=== PATIENT | male | born 1960 | race American Indian/Alaskan Native ===

== ENCOUNTER 2017-04-11 07:28 | Emergency (ER) | payer MEDICAID ==
[2017-04-11 07:44] VITALS: BP 143/85
[2017-04-11] MEDS ORDERED: LORazepam 1 MG Tab PO ONE ×2 (07:59→08:56)
[2017-04-11] MEDS ORDERED: Aluminum Hydroxide/Magnesium Hydroxide/Simethicone Susp 30 ML Cup PO ONE ×2 (07:59→11:12)
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
[2017-04-11] MEDS ORDERED: Midazolam 1 MG/ML 2 ML SDV NAS ONE (08:15)
[2017-04-11] MEDS ORDERED: Ondansetron 4 MG Tab.DIS PO ONE (11:14)
== END 2017-04-11 12:18 ==
LOC: JP.ED 07:28
DX: F10.230 Alcohol dependence with withdrawal, uncomplicated (principal); F10.220 Alcohol dependence with intoxication, uncomplicated; Y90.6 Blood alcohol level of 120-199 mg/100 ml; I10 Essential (primary) hypertension; E78.00 Pure hypercholesterolemia, unspecified; J45.909 Unspecified asthma, uncomplicated; E11.42 Type 2 diabetes mellitus with diabetic polyneuropathy; Z87.891 Personal history of nicotine dependence; Z79.4 Long term (current) use of insulin; Z79.899 Other long term (current) drug therapy; Z88.6 Allergy status to analgesic agent; Z88.8 Allergy status to other drugs, medicaments and biological substances; Z91.048 Other nonmedicinal substance allergy status
CPT/HCPCS: 36415; 80053; 80305; 81001; 84443; 85027; 99285; A9270; G0480

== ENCOUNTER 2017-04-16 12:59 | Emergency (ER) | payer MEDICAID ==
[2017-04-16] MEDS ORDERED: LORazepam 1 MG Tab PO ONE (13:39)
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
[2017-04-16] MEDS ORDERED: Ondansetron 4 MG Tab.DIS PO ONE (13:49)
[2017-04-16 14:49] VITALS: BP 138/95
== END 2017-04-16 16:05 ==
LOC: JP.ED 12:59
DX: F10.20 Alcohol dependence, uncomplicated (principal); Y90.1 Blood alcohol level of 20-39 mg/100 ml; E11.40 Type 2 diabetes mellitus with diabetic neuropathy, unspecified; J44.9 Chronic obstructive pulmonary disease, unspecified; I10 Essential (primary) hypertension; E78.00 Pure hypercholesterolemia, unspecified; Z79.84 Long term (current) use of oral hypoglycemic drugs; Z79.01 Long term (current) use of anticoagulants; Z79.4 Long term (current) use of insulin; Z79.899 Other long term (current) drug therapy; Z88.8 Allergy status to other drugs, medicaments and biological substances; Z91.09 Other allergy status, other than to drugs and biological substances; Z88.6 Allergy status to analgesic agent
CPT/HCPCS: 36415; 80053; 80305; 81001; 85025; 85610; 99285; A9270; G0480

== ENCOUNTER 2017-04-23 00:03 | Emergency (ER) | payer MEDICAID ==
[2017-04-23 01:09] VITALS: BP 135/94
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
[2017-04-23] MEDS ORDERED: Enoxaparin 40 MG/0.4 ML Syringe SUBCUT ONE (02:31)
--- NOTE | 2017-04-23 08:18 | US ---
Ultrasound right lower extremity Findings: No DVT within the right lower extremity. Lymph node within the right groin.
== END 2017-04-23 02:44 | disposition home or self-care (01) ==
LOC: JP.ED 00:03
DX: L03.115 Cellulitis of right lower limb (principal); L02.415 Cutaneous abscess of right lower limb; Z88.8 Allergy status to other drugs, medicaments and biological substances; Z88.6 Allergy status to analgesic agent; Z79.899 Other long term (current) drug therapy
CPT/HCPCS: 36415; 80048; 85025; 85610; 93971; 96372; 99284; J1650

== ENCOUNTER 2017-05-01 08:11 | Emergency (ER) | payer MEDICAID ==
[2017-05-01 08:22] VITALS: BP 136/99
[2017-05-01] MEDS ORDERED: Ondansetron 4 MG Tab.DIS PO ONE (08:32)
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
== END 2017-05-01 09:22 | disposition other institution (70) ==
LOC: JP.ED 08:11
DX: F10.220 Alcohol dependence with intoxication, uncomplicated (principal); Y90.5 Blood alcohol level of 100-119 mg/100 ml; I11.0 Hypertensive heart disease with heart failure; I50.9 Heart failure, unspecified; E11.9 Type 2 diabetes mellitus without complications; F17.210 Nicotine dependence, cigarettes, uncomplicated; Z79.4 Long term (current) use of insulin; Z88.8 Allergy status to other drugs, medicaments and biological substances; Z88.6 Allergy status to analgesic agent; Z79.01 Long term (current) use of anticoagulants
CPT/HCPCS: 36415; 80048; 85025; 85610; 99285; A9270; G0480

== ENCOUNTER 2017-05-28 09:21 | Inpatient (IN) | payer MEDICAID ==
[2017-05-28] MEDS ORDERED: Sodium Chloride 0.9% 10 ML Syringe FLUSH PRN (09:37)
[2017-05-28] MEDS ORDERED: Sodium Chloride 0.9% 1,000 ML IV SCH (09:45)
[2017-05-28] MEDS ORDERED: Ondansetron 4 MG/2 ML SDV IVPUSH ONE (09:49)
[2017-05-28] MEDS ORDERED: LORazepam 2 MG/ML MDV IVPUSH ONE ×2 (10:17→13:40)
[2017-05-28] MEDS ORDERED: Adenosine 6 MG/2 ML SDV IVPUSH ONE ×2 (10:58→11:25)
[2017-05-28] MEDS ORDERED: Diltiazem 25 MG/5 ML SDV IVPUSH ONE (11:21)
[2017-05-28] MEDS ORDERED: Diltiazem 100 MG in Sodium Chloride 0.9% 100 ML IV SCH ×2 (11:30→11:45)
[2017-05-28] MEDS ORDERED: MVI, Adult with Vitamin K 10 ML, Thiamine 100 MG, Folic Acid 1 MG, Magnesium Sulfate 3 ... IV SCH ×5 (11:30)
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
[2017-05-28] MEDS ORDERED: Metoprolol Tartrate 50 MG Tab PO ONE (11:48)
[2017-05-28] MEDS ORDERED: MVI, Adult with Vitamin K 10 ML, Thiamine 100 MG, Folic Acid 1 MG, Magnesium Sulfate 3 ... IV ONE ×5 (12:00)
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
[2017-05-28] MEDS ORDERED: Ondansetron 4 MG Tab.DIS PO PRN (14:59)
[2017-05-28] MEDS ORDERED: Ibuprofen 600 MG Tab PO PRN (14:59)
[2017-05-28] MEDS: metFORMIN 500 MG Tab PO SCH (16:42)
[2017-05-28] MEDS: Insulin Aspart 100 Units/ML 3 ML Pen SUBCUT SCH ×3 (16:47→19:56)
[2017-05-28] MEDS: Sodium Chloride 0.9% 1,000 ML IV SCH (16:55)
[2017-05-28] MEDS: LORazepam 2 MG/ML MDV IV SCH (18:16)
[2017-05-28] MEDS: Ondansetron 4 MG/2 ML SDV IV PRN (18:55)
[2017-05-28] MEDS: atorvaSTATin 20 MG Tab PO SCH (20:00)
[2017-05-28] MEDS: Melatonin 3 MG Tab PO SCH (20:00)
[2017-05-28] MEDS: Montelukast 10 MG Tab PO SCH (20:00)
[2017-05-28] MEDS: Gabapentin 400 MG Cap PO SCH (20:01)
[2017-05-28] MEDS: Metoprolol Tartrate 50 MG Tab PO SCH (20:01)
[2017-05-28] MEDS: Insulin Detemir 100 Units/ML 3 ML Pen SUBCUT SCH (20:08)
[2017-05-28] MEDS: oxyCODONE 5 MG Tab PO PRN (20:16)
[2017-05-28] MEDS: LORazepam 1 MG Tab PO SCH (20:19)
[2017-05-28] MEDS ORDERED: Non-Formulary Medication 1 Each (Metformin Hcl [Fortamet] 1,000 MG) PO SCH (21:00)
[2017-05-29] MEDS: Sodium Chloride 0.9% 1,000 ML IV SCH ×2 (00:44→07:49)
[2017-05-29] MEDS: Pantoprazole 40 MG Tab.CR PO SCH (07:51)
[2017-05-29] MEDS: metFORMIN 500 MG Tab PO SCH ×2 (08:55→18:09)
[2017-05-29] MEDS ORDERED: ATORVASTATIN PO SCH (09:00)
[2017-05-29] MEDS: oxyCODONE 5 MG Tab PO PRN ×3 (09:14→21:07)
[2017-05-29] MEDS: Acetaminophen 325 MG Tab PO PRN ×2 (09:15→20:13)
[2017-05-29] MEDS: Insulin Aspart 100 Units/ML 3 ML Pen SUBCUT SCH ×7 (09:17→21:03)
[2017-05-29] MEDS: Folic Acid 1 MG Tab PO SCH (09:21)
[2017-05-29] MEDS: Metoprolol Tartrate 50 MG Tab PO SCH ×2 (09:21→20:13)
[2017-05-29] MEDS: Lisinopril 20 MG Tab PO SCH (09:22)
[2017-05-29] MEDS: Gabapentin 400 MG Cap PO SCH ×3 (09:22→20:12)
[2017-05-29] MEDS: Thiamine 100 MG Tab PO SCH (09:23)
[2017-05-29] MEDS: Ondansetron 4 MG/2 ML SDV IV PRN (09:45)
--- NOTE | 2017-05-29 09:47 | PCM.PN ---
- General Info Date of Service: 05/29/17 Functional Status: Reports: Pain Controlled, Tolerating Diet - Review of Systems General: Reports: Weakness Musculoskeletal: Reports: Shoulder Pain Neurological: Reports: Tremors Systems Review Comment:: No acute events overnight. Heart rate has come down below 100 with beta thaddeus use. Intermittently using lorazepam for his alcohol withdrawal and still feels shaky and weak today. Has some nausea but was able to eat some supper and a little breakfast. Mild knee pain and swelling are stable from yesterday. Patient reports left shoulder pain in the area of his AC joint today. No fevers. INR is down to 6.6. No evidence for bleeding. - Patient Data Vitals - Most Recent: Last Vital Signs Temp 36.6 C 05/29/17 07:52 Pulse 101 H 05/29/17 09:21 Resp 16 05/29/17 07:52 BP 142/93 H 05/29/17 09:22 Pulse Ox 96 05/29/17 07:52 Weight - Most Recent: 113.398 kg I&O - Last 24 Hours: Intake & Output 05/28/17 05/29/17 05/29/17 22:59 06:59 14:59 Intake Total 2080 Output Total 300 Balance 1780 Lab Results Last 24 Hours: Laboratory Results - last 24 hr 05/29/17 05/29/17 05/29/17 Range/Units 05:18 05:18 05:18 WBC 5.8 (4.5-11.0) K/uL RBC 3.75 L (4.30-5.90) M/uL Hgb 10.5 L D (12.0-15.0) g/dL Hct 31.7 L (40.0-54.0) % MCV 85 (80-98) fL MCH 28 (27-31) pg MCHC 33 (32-36) % Plt Count 171 (150-400) K/uL PT 76.9 H (9.5-12.0) sec INR 6.64 H* (0.80-1.20) Sodium 136 L (140-148) mmol/L Potassium 3.7 (3.6-5.2) mmol/L Chloride 104 (100-108) mmol/L Carbon Dioxide 24 (21-32) mmol/L Anion Gap 11.7 (5.0-14.0) mmol/L BUN 9 (7-18) mg/dL Creatinine 0.9 (0.8-1.3) mg/dL Est Cr Clr Drug Dosing 95.29 mL/min Estimated GFR (MDRD) > 60 (>60) Glucose 101 (74-106) mg/dL Calcium 7.0 L (8.5-10.1) mg/dL Med Orders - Current: Current Medications Acetaminophen (Tylenol) 650 mg PO Q4H PRN PRN Reason: Pain (Mild 1-3)/fever Last Admin: 05/29/17 09:15 Dose: 650 mg Atorvastatin Calcium (Lipitor) 80 mg PO BEDTIME [facility] Last Admin: 05/28/17 20:00 Dose: 80 mg Folic Acid (Folic Acid) 1 mg PO DAILY [facility] Last Admin: 05/29/17 09:21 Dose: 1 mg Gabapentin (Neurontin) 400 mg PO TID [facility] Last Admin: 05/29/17 09:22 Dose: 400 mg Insulin Aspart (Novolog) 10 unit SUBCUT TIDMEALS [facility] Last Admin: 05/29/17 09:18 Dose: 10 units Insulin Aspart (Novolog) 0 unit SUBCUT QIDACANDBED [facility] PRN Reason: Protocol Last Admin: 05/29/17 09:17 Dose: Not Given Insulin Detemir (Levemir) 60 unit SUBCUT BEDTIME [facility] Last Admin: 05/28/17 20:08 Dose: 60 unit Lisinopril (Prinivil) 20 mg PO DAILY [facility] Last Admin: 05/29/17 09:22 Dose: 20 mg Lorazepam (Ativan) 0 mg IV ASDIRECTED [facility] PRN Reason: Protocol Last Admin: 05/28/17 18:16 Dose: 2 mg Lorazepam (Ativan) 0 mg PO ASDIRECTED [facility] PRN Reason: Protocol Last Admin: 05/28/17 20:19 Dose: 1 mg Melatonin (Melatonin) 9 mg PO BEDTIME [facility] Last Admin: 05/28/17 20:00 Dose: 9 mg Metformin HCl (Glucophage) 1,000 mg PO BIDMEALS [facility] Last Admin: 05/29/17 08:55 Dose: 1,000 mg Metoprolol Tartrate (Lopressor) 50 mg PO BID [facility] Last Admin: 05/29/17 09:21 Dose: 50 mg Montelukast Sodium (Singulair) 10 mg PO BEDTIME [facility] Last Admin: 05/28/17 20:00 Dose: 10 mg Ondansetron HCl (Zofran Odt) 4 mg PO Q6H PRN PRN Reason: Nausea able to take PO Ondansetron HCl (Zofran) 4 mg IV Q6H PRN PRN Reason: Nausea/Vomiting Last Admin: 05/29/17 09:45 Dose: 4 mg Oxycodone HCl (Oxycodone) 5 mg PO Q4H PRN PRN Reason: Pain Last Admin: 05/29/17 09:14 Dose: 5 mg Pantoprazole Sodium (Protonix) 40 mg PO ACBREAKFAST [facility] Last Admin: 05/29/17 07:51 Dose: 40 mg Sodium Chloride (Saline Flush) 10 ml FLUSH ASDIRECTED PRN PRN Reason: Keep Vein Open Last Admin: 05/28/17 10:43 Dose: 10 ml Thiamine HCl (Vitamin B-1) 100 mg PO DAILY [facility] Last Admin: 05/29/17 09:23 Dose: 100 mg Discontinued Medications Adenosine (Adenocard) 6 mg IVPUSH NOW ONE Stop: 05/28/17 10:59 Last Admin: 05/28/17 11:06 Dose: 6 mg Adenosine (Adenocard) 12 mg IVPUSH NOW ONE Stop: 05/28/17 11:26 Last Admin: 05/28/17 11:08 Dose: 12 mg Diltiazem HCl (Diltiazem) 10 mg IVPUSH ONETIME ONE Stop: 05/28/17 11:22 Last Admin: 05/28/17 11:38 Dose: 10 mg Sodium Chloride (Normal Saline) 1,000 mls @ 999 mls/hr IV ASDIRECTED [facility] Last Admin: 05/28/17 10:42 Dose: 999 mls/hr Multivitamins/Minerals 10 ml/Thiamine HCl 100 mg/ Folic Acid 1 mg/ Magnesium Sulfate 3 gm/ Sodium Chloride 1,017.2 mls @ 250 mls/hr IV ASDIRECTED [facility] Diltiazem HCl 100 mg/ Sodium (Chloride) 100 mls @ 5 mls/hr IV TITRATE [facility]; 5 MG /HR PRN Reason: Protocol Last Titration: 05/28/17 13:21 Dose: 15 mg/hr, 15 mls/hr Multivitamins/Minerals 10 ml/Thiamine HCl 100 mg/ Folic Acid 1 mg/ Magnesium Sulfate 3 gm/ Sodium Chloride 1,017.2 mls @ 250 mls/hr IV ASDIRECTED ONE Stop: 05/28/17 16:04 Last Admin: 05/28/17 12:32 Dose: 250 mls/hr Sodium Chloride (Normal Saline) 1,000 mls @ 125 mls/hr IV ASDIRECTED [facility] Last Admin: 05/29/17 07:49 Dose: 125 mls/hr Lorazepam (Ativan) 1 mg IVPUSH ONETIME ONE Stop: 05/28/17 10:18 Last Admin: 05/28/17 10:50 Dose: 1 mg Lorazepam (Ativan) 1 mg IVPUSH ONETIME ONE Stop: 05/28/17 13:41 Last Admin: 05/28/17 13:57 Dose: 1 mg Metoprolol Tartrate (Lopressor) 50 mg PO ONETIME ONE Stop: 05/28/17 11:49 Last Admin: 05/28/17 12:34 Dose: 50 mg Ondansetron HCl (Zofran) 4 mg IVPUSH ONETIME ONE Stop: 05/28/17 09:50 Last Admin: 05/28/17 10:44 Dose: 4 mg Phytonadione (Aquamephyton) 5 mg IM ONETIME ONE Stop: 05/28/17 10:31 Last Admin: 05/28/17 10:34 Dose: 5 mg - Exam Quality Assessment: No: Supplemental Oxygen General: Alert, Oriented, Cooperative, Mild Distress Neck: Supple Lungs: Normal Respiratory Effort Cardiovascular: Regular Rate, Regular Rhythm GI/Abdominal Exam: Soft, No Distention Extremities: Other (TTP over left AC joint. Mild swelling right knee superior and medial to patella. No warmth of knee) Skin: Warm, Dry Psy/Mental Status: Alert, Anxious - Problem List & Annotations (1) Alcohol withdrawal syndrome SNOMED Code(s): 372157972 Code(s): F10.239 - ALCOHOL DEPENDENCE WITH WITHDRAWAL, UNSPECIFIED Status: Acute Current Visit: Yes Qualifiers: Complication of substance-induced condition: uncomplicated Qualified Code(s ): F10.230 - Alcohol dependence with withdrawal, uncomplicated (2) Supraventricular tachycardia SNOMED Code(s): 8109559 Code(s): I47.1 - SUPRAVENTRICULAR TACHYCARDIA Status: Acute Current Visit : Yes (3) Elevated INR SNOMED Code(s): 372049924 Code(s): R79.1 - ABNORMAL COAGULATION PROFILE Status: Acute Current Visit : Yes (4) Diabetes mellitus type 2 SNOMED Code(s): 92880642 Code(s): E11.9 - TYPE 2 DIABETES MELLITUS WITHOUT COMPLICATIONS Status: Chronic Priority: Medium Current Visit: No - Problem List Review Problem List Initiated/Reviewed/Updated: Yes - My Orders Last 24 Hours: My Active Orders 05/28/17 13:45 Resuscitation Status Routine 05/28/17 14:59 Patient Status [ADT] Routine Bedrest Bathroom Privileges [RC] ASDIRECTED Blood Glucose Check, Bedside [RC] QIDACANDBED CIWAA Assessment [RC] Q1H Cardiac Monitoring [RC] Q6H Communication Order [RC] PRN Communication Order [RC] PRN Diabetes Education [RC] Click to Edit Intake and Output [RC] QSHIFT Notify Provider Vital Signs [RC] ASDIRECTED Notify Provider [RC] PRN Notify Provider [RC] PRN Oxygen Therapy [RC] PRN Pulse Oximetry [RC] CONTINUOUS Up With Assistance [RC] ASDIRECTED Vital Signs [RC] Q4H Acetaminophen [Tylenol] 650 mg PO Q4H PRN LORazepam [Ativan] See Protocol IV ASDIRECTED LORazepam [Ativan] See Protocol PO ASDIRECTED Ondansetron [Zofran ODT] 4 mg PO Q6H PRN Ondansetron [Zofran] 4 mg IV Q6H PRN oxyCODONE 5 mg PO Q4H PRN 05/28/17 17:00 Insulin Aspart [NovoLOG] 10 unit SUBCUT TIDMEALS Insulin Aspart [NovoLOG] See Protocol SUBCUT QIDACANDBED metFORMIN [Glucophage] 1,000 mg PO BIDMEALS 05/28/17 21:00 Gabapentin [Neurontin] 400 mg PO TID Melatonin 9 mg PO BEDTIME atorvaSTATin [Lipitor] 80 mg PO BEDTIME 05/28/17 Dinner Consistent Carbohydrate Diet [DIET] 05/29/17 07:30 Pantoprazole [ProTONIX] 40 mg PO ACBREAKFAST 05/29/17 09:00 Folic Acid 1 mg PO DAILY Thiamine [Vitamin B-1] 100 mg PO DAILY 05/29/17 09:45 Convert IV to Saline Lock [OM.PC] Routine 05/30/17 05:00 BASIC METABOLIC PANEL,BMP [CHEM] Timed HGB [HEMOGLOBIN] [HEME] Timed INR,PT,PROTHROMBIN TIME [COAG] Timed - Plan Plan:: ASSESSMENT AND PLAN - Alcohol dependence with withdrawal and delirium - hallucinations seem to have resolved. Current symptoms include nausea and tremulousness. Withdrawal seems to be relatively mild at this time. -CIWA with lorazepam -Gabapentin -Melatonin -Cardiac monitoring -Supplement thiamine and folate Supraventricular tachycardia - heart rate now down in the 90s. Tachycardia yesterday likely related to alcohol withdrawal and possibly beta thaddeus withdrawal. -Continue usual metoprolol dosing -Cardiac monitoring Supratherapeutic INR - INR down to 6.6 today. No evidence for bleeding. -Hold warfarin -INR in the morning Insulin-dependent diabetes mellitus - blood sugars have been well controlled so far. -Continue long-acting insulin -reduced dose of mealtime insulin -Sliding-scale insulin Maintenance issues - - DVT prophylaxis - mechanical - GI prophylaxis - PPI - Nutrition - diabetic diet Disposition - anticipate discharge home after the hospital stay Esvin Malone M.D.
[2017-05-29] MEDS: LORazepam 2 MG/ML MDV IV SCH (12:59)
[2017-05-29] MEDS: LORazepam 1 MG Tab PO SCH ×2 (16:32→20:14)
[2017-05-29] MEDS: Montelukast 10 MG Tab PO SCH (20:12)
[2017-05-29] MEDS: Melatonin 3 MG Tab PO SCH (20:13)
[2017-05-29] MEDS: atorvaSTATin 20 MG Tab PO SCH (20:14)
[2017-05-29] MEDS: Insulin Detemir 100 Units/ML 3 ML Pen SUBCUT SCH (21:07)
[2017-05-30] MEDS: metFORMIN 500 MG Tab PO SCH (08:09)
[2017-05-30] MEDS: Pantoprazole 40 MG Tab.CR PO SCH (08:09)
[2017-05-30] MEDS: Insulin Aspart 100 Units/ML 3 ML Pen SUBCUT SCH ×4 (08:28→13:15)
[2017-05-30] MEDS: Thiamine 100 MG Tab PO SCH (08:38)
[2017-05-30] MEDS: Gabapentin 400 MG Cap PO SCH ×2 (08:38→13:16)
[2017-05-30] MEDS: Lisinopril 20 MG Tab PO SCH (08:38)
[2017-05-30] MEDS: Metoprolol Tartrate 50 MG Tab PO SCH (08:39)
[2017-05-30] MEDS: Folic Acid 1 MG Tab PO SCH (08:39)
[2017-05-30] MEDS: Acetaminophen 325 MG Tab PO PRN (08:43)
[2017-05-30] MEDS: oxyCODONE 5 MG Tab PO PRN (08:44)
--- NOTE | 2017-05-30 13:13 | PCM.DCSUM1 ---
Discharge Summary - Hospital Course Brief History: 57-year-old male with history of alcohol dependence, insulin- dependent diabetes who presented with alcohol abuse and delirium and was also found to have an elevated INR and significant tachycardia. He was admitted to the intensive care unit for management of alcohol withdrawal and tachycardia. - Discharge Data Discharge Date: 05/30/17 Discharge Disposition: Home, Self-Care 01 Condition: Fair - Discharge Diagnosis/Problem(s) (1) Alcohol withdrawal syndrome SNOMED Code(s): 636551795 ICD Code: F10.239 - ALCOHOL DEPENDENCE WITH WITHDRAWAL, UNSPECIFIED Status : Acute Current Visit: Yes Qualifiers: Complication of substance-induced condition: with delirium Qualified Code(s ): F10.231 - Alcohol dependence with withdrawal delirium (2) Supraventricular tachycardia SNOMED Code(s): 5102471 ICD Code: I47.1 - SUPRAVENTRICULAR TACHYCARDIA Status: Acute Current Visit: Yes (3) Elevated INR SNOMED Code(s): 127445588 ICD Code: R79.1 - ABNORMAL COAGULATION PROFILE Status: Acute Current Visit: Yes (4) Diabetes mellitus type 2 SNOMED Code(s): 95480916 ICD Code: E11.9 - TYPE 2 DIABETES MELLITUS WITHOUT COMPLICATIONS Status: Chronic Priority: Medium Current Visit: No (5) Left shoulder pain SNOMED Code(s): 76559947 ICD Code: M25.512 - PAIN IN LEFT SHOULDER Status: Acute Current Visit: Yes Qualifiers: Chronicity: acute Qualified Code(s): M25.512 - Pain in left shoulder - Patient Summary/Data Hospital Course: Warren presented to the emergency room with visual and auditory hallucinations after recent heavy alcohol use. Workup in the emergency room revealed sinus tachycardia with heart rates in the 130s as well as a supratherapeutic INR and evidence for alcohol withdrawal. He was given 5 mg of vitamin K as well as a dose of metoprolol and admitted to the intensive care unit. Fortunately his heart rate did improve with the oral metoprolol and was likely a combination of alcohol withdrawal and lack of his home medications. His alcohol withdrawal fortunately was relatively mild. Over the next 48 hours his symptoms dissipated. His hallucinations resolved as did his tremulousness. He has been able to get out of bed on his own without much difficulty. He has been up and around his room with no significant issues. He has not had any lorazepam in nearly 20 hours by the time of discharge. His vital signs have all been stable. Blood sugars have been well controlled. From the alcohol withdrawal standpoint I believe he is safe for discharge to home at this time. He reports good resources to help avoid alcohol at home and has been through treatment many different times. We did not send him to [facility] because his detoxification is complete at the time of discharge. Also encountered during the hospital stay was some right knee pain and left shoulder pain. He reported a fall several days prior to hospital admission and had to use mailboxes outside to climb back up to his feet. He believes he injured his knee on the fall and his shoulder while trying to get back on his feet. Physical examination revealed significant point tenderness over the acromioclavicular joint and I suspect he may have a mild separation here. I did provide him with a limited number of pain pills to help with during the healing process. I did savings counselor him about the potentially severe and life-threatening dangers of using pain medications and alcohol at the same time. He voiced understanding that this combination could be dangerous. We did provide a sling to help support the shoulder while he is up and about and the healing process is underway. - Patient Instructions Diet: Diabetic Diet Activity: As Tolerated Driving: Do Not Drive (if taking pain pills) Showering/Bathing: May Shower Notify Provider of: Fever, Increased Pain Other/Special Instructions: 1. You were in the hospital for management of acute alcohol withdrawal with delirium. Your symptoms have resolved over time and were managed using lorazepam and gabapentin. At this time no further detoxification is needed. I would strongly encourage you to utilize your resources such as Alcoholics Anonymous, [facility] and whoever else can be useful to keep you away from the alcohol. Please do not mix alcohol and the pain pills prescribed for your shoulder pain. 2. The pain in your left shoulder is likely a result of the fall that you had a few days ago. I suspect that you have an AC joint separation. This will get better with time. You should use the sling while you are up and about but you may take it off while you are sleeping. This will help support the shoulder joint until things heal. 3. Do not take warfarin today or tomorrow before restart as usual on Wednesday. You should have your INR checked this week. 4. Please continue your other medications as previously prescribed. 5. Seek radical attention if you develop fever greater than 101, you have severe pain in your shoulder that limits your ability to perform your activities of daily living or you have persistent vomiting. - Discharge Plan Prescriptions/Med Rec: oxyCODONE 5 mg PO Q4H PRN #20 tablet PRN Reason: Pain Home Medications: Home Meds Insulin Aspart [NovoLOG] 30 units SQ TIDAC 02/22/13 [History] Insulin Detemir [Levemir] 60 units SQ BEDTIME 02/22/13 [History] Lisinopril 20 mg PO DAILY 02/22/13 [History] Metoprolol Tartrate 50 mg PO BID 02/22/13 [History] Montelukast [Singulair] 10 mg PO BEDTIME 02/22/13 [History] Multivitamin [Multiple Vitamins] 1 each PO DAILY 02/22/13 [History] Omeprazole 20 mg PO DAILY 02/22/13 [History] Warfarin [Coumadin] 2.5 mg PO ASDIRECTED 11/17/15 [History] Warfarin [Coumadin] 5 mg PO ASDIRECTED 11/17/15 [History] Folic Acid tab PO DAILY 05/28/17 [History] atorvaSTATin [Lipitor] 80 mg PO DAILY 05/28/17 [History] metFORMIN [Glucophage] 1,000 mg PO BIDMEALS 05/28/17 [History] oxyCODONE 5 mg PO Q4H PRN #20 tablet 05/30/17 [Rx] Patient Handouts: Alcohol Withdrawal Referrals: PCP,None [Primary Care Provider] - (follow-up with your primary care provider if your symptoms do not continue to get better or if they get worse) - Discharge Summary/Plan Comment DC Time >30 min.: No (25) - Patient Data Vitals - Most Recent: Last Vital Signs Temp 37.7 C 05/30/17 08:00 Pulse 90 05/30/17 10:00 Resp 14 05/30/17 10:00 BP 102/70 05/30/17 10:00 Pulse Ox 97 05/30/17 10:00 Weight - Most Recent: 113.398 kg I&O - Last 24 hours: Intake & Output 05/29/17 05/30/17 05/30/17 22:59 06:59 14:59 Intake Total 1240 Output Total 500 600 200 Balance 740 -600 -200 Lab Results - Last 24 hrs: Laboratory Results - last 24 hr 05/30/17 05/30/17 05/30/17 Range/Units 05:00 05:18 05:18 Hgb 9.9 L (12.0-15.0) g/dL PT 54.2 H (9.5-12.0) sec INR 4.75 H* (0.80-1.20) Sodium 136 L (140-148) mmol/L Potassium 3.6 (3.6-5.2) mmol/L Chloride 103 (100-108) mmol/L Carbon Dioxide 27 (21-32) mmol/L Anion Gap 9.6 (5.0-14.0) mmol/L BUN 5 L (7-18) mg/dL Creatinine 0.9 (0.8-1.3) mg/dL Est Cr Clr Drug Dosing 95.29 mL/min Estimated GFR (MDRD) > 60 (>60) Glucose 108 H (74-106) mg/dL Calcium 7.3 L (8.5-10.1) mg/dL Med Orders - Current: Current Medications Acetaminophen (Tylenol) 650 mg PO Q4H PRN PRN Reason: Pain (Mild 1-3)/fever Last Admin: 05/30/17 08:43 Dose: 650 mg Atorvastatin Calcium (Lipitor) 80 mg PO BEDTIME [facility] Last Admin: 05/29/17 20:14 Dose: 80 mg Folic Acid (Folic Acid) 1 mg PO DAILY [facility] Last Admin: 05/30/17 08:39 Dose: 1 mg Gabapentin (Neurontin) 400 mg PO TID [facility] Last Admin: 05/30/17 08:38 Dose: 400 mg Insulin Aspart (Novolog) 10 unit SUBCUT TIDMEALS [facility] Last Admin: 05/30/17 08:28 Dose: 10 units Insulin Aspart (Novolog) 0 unit SUBCUT QIDACANDBED [facility] PRN Reason: Protocol Last Admin: 05/30/17 08:31 Dose: Not Given Insulin Detemir (Levemir) 60 unit SUBCUT BEDTIME [facility] Last Admin: 05/29/17 21:07 Dose: 60 unit Lisinopril (Prinivil) 20 mg PO DAILY [facility] Last Admin: 05/30/17 08:38 Dose: 20 mg Lorazepam (Ativan) 0 mg IV ASDIRECTED [facility] PRN Reason: Protocol Last Admin: 05/29/17 12:59 Dose: 1 mg Lorazepam (Ativan) 0 mg PO ASDIRECTED [facility] PRN Reason: Protocol Last Admin: 05/29/17 20:14 Dose: 1 mg Melatonin (Melatonin) 9 mg PO BEDTIME [facility] Last Admin: 05/29/17 20:13 Dose: 9 mg Metformin HCl (Glucophage) 1,000 mg PO BIDMEALS [facility] Last Admin: 05/30/17 08:09 Dose: 1,000 mg Metoprolol Tartrate (Lopressor) 50 mg PO BID [facility] Last Admin: 05/30/17 08:39 Dose: 50 mg Montelukast Sodium (Singulair) 10 mg PO BEDTIME [facility] Last Admin: 05/29/17 20:12 Dose: 10 mg Ondansetron HCl (Zofran Odt) 4 mg PO Q6H PRN PRN Reason: Nausea able to take PO Last Admin: 05/29/17 20:14 Dose: 4 mg Ondansetron HCl (Zofran) 4 mg IV Q6H PRN PRN Reason: Nausea/Vomiting Last Admin: 05/29/17 09:45 Dose: 4 mg Oxycodone HCl (Oxycodone) 5 mg PO Q4H PRN PRN Reason: Pain Last Admin: 05/30/17 08:44 Dose: 5 mg Pantoprazole Sodium (Protonix) 40 mg PO ACBREAKFAST [facility] Last Admin: 05/30/17 08:09 Dose: 40 mg Sodium Chloride (Saline Flush) 10 ml FLUSH ASDIRECTED PRN PRN Reason: Keep Vein Open Last Admin: 05/28/17 10:43 Dose: 10 ml Thiamine HCl (Vitamin B-1) 100 mg PO DAILY [facility] Last Admin: 05/30/17 08:38 Dose: 100 mg Discontinued Medications Adenosine (Adenocard) 6 mg IVPUSH NOW ONE Stop: 05/28/17 10:59 Last Admin: 05/28/17 11:06 Dose: 6 mg Adenosine (Adenocard) 12 mg IVPUSH NOW ONE Stop: 05/28/17 11:26 Last Admin: 05/28/17 11:08 Dose: 12 mg Diltiazem HCl (Diltiazem) 10 mg IVPUSH ONETIME ONE Stop: 05/28/17 11:22 Last Admin: 05/28/17 11:38 Dose: 10 mg Sodium Chloride (Normal Saline) 1,000 mls @ 999 mls/hr IV ASDIRECTED [facility] Last Admin: 05/28/17 10:42 Dose: 999 mls/hr Multivitamins/Minerals 10 ml/Thiamine HCl 100 mg/ Folic Acid 1 mg/ Magnesium Sulfate 3 gm/ Sodium Chloride 1,017.2 mls @ 250 mls/hr IV ASDIRECTED [facility] Diltiazem HCl 100 mg/ Sodium (Chloride) 100 mls @ 5 mls/hr IV TITRATE [facility]; 5 MG /HR PRN Reason: Protocol Last Titration: 05/28/17 13:21 Dose: 15 mg/hr, 15 mls/hr Multivitamins/Minerals 10 ml/Thiamine HCl 100 mg/ Folic Acid 1 mg/ Magnesium Sulfate 3 gm/ Sodium Chloride 1,017.2 mls @ 250 mls/hr IV ASDIRECTED ONE Stop: 05/28/17 16:04 Last Admin: 05/28/17 12:32 Dose: 250 mls/hr Sodium Chloride (Normal Saline) 1,000 mls @ 125 mls/hr IV ASDIRECTED [facility] Last Admin: 05/29/17 07:49 Dose: 125 mls/hr Lorazepam (Ativan) 1 mg IVPUSH ONETIME ONE Stop: 05/28/17 10:18 Last Admin: 05/28/17 10:50 Dose: 1 mg Lorazepam (Ativan) 1 mg IVPUSH ONETIME ONE Stop: 05/28/17 13:41 Last Admin: 05/28/17 13:57 Dose: 1 mg Metoprolol Tartrate (Lopressor) 50 mg PO ONETIME ONE Stop: 05/28/17 11:49 Last Admin: 05/28/17 12:34 Dose: 50 mg Ondansetron HCl (Zofran) 4 mg IVPUSH ONETIME ONE Stop: 05/28/17 09:50 Last Admin: 05/28/17 10:44 Dose: 4 mg Phytonadione (Aquamephyton) 5 mg IM ONETIME ONE Stop: 05/28/17 10:31 Last Admin: 05/28/17 10:34 Dose: 5 mg - Exam Quality Assessment: Denies: Supplemental Oxygen General: Reports: Alert, Oriented, Cooperative, No Acute Distress Lungs: Reports: Normal Respiratory Effort Cardiovascular: Reports: Regular Rate, Regular Rhythm Neurological: Reports: Other (no tremor) Psy/Mental Status: Denies: Hallucinations *Q Meaningful Use (DIS) - VTE *Q VTE Criteria *Q: - Stroke *Q Stroke Criteria *Q: - AMI *Q AMI Criteria *Q:
[2017-05-30 13:47] VITALS: BP 117/74
== END 2017-05-30 14:50 | disposition home or self-care (01) | DRG 897 ==
LOC: JP.ED 09:21 → JP.ICU 13:42
PROVIDERS: ADMIT Internal Medicine; ATTEND Internal Medicine
DX: F10.231 Alcohol dependence with withdrawal delirium (principal); I47.1 Supraventricular tachycardia; F10.251 Alcohol dependence with alcohol-induced psychotic disorder with hallucinations; Y90.4 Blood alcohol level of 80-99 mg/100 ml; E86.0 Dehydration; Z91.14 Patient's other noncompliance with medication regimen; R79.1 Abnormal coagulation profile; E11.9 Type 2 diabetes mellitus without complications; I10 Essential (primary) hypertension; J44.9 Chronic obstructive pulmonary disease, unspecified; Z86.73 Personal history of transient ischemic attack (TIA), and cerebral infarction without residual deficits; I48.91 Unspecified atrial fibrillation; Z79.01 Long term (current) use of anticoagulants; Z95.1 Presence of aortocoronary bypass graft; E78.00 Pure hypercholesterolemia, unspecified; K21.9 Gastro-esophageal reflux disease without esophagitis; M54.9 Dorsalgia, unspecified; G89.29 Other chronic pain; M19.90 Unspecified osteoarthritis, unspecified site; M25.512 Pain in left shoulder; M25.561 Pain in right knee; Z87.891 Personal history of nicotine dependence; H91.90 Unspecified hearing loss, unspecified ear; Z79.4 Long term (current) use of insulin; Z88.8 Allergy status to other drugs, medicaments and biological substances; W19.XXXA Unspecified fall, initial encounter
CPT/HCPCS: 36415; 80048; 80053; 80305; 81001; 82962; 83735; 84484; 85018; 85025; 85027; 85610; 87040; 93005; 96361; 96365; 96368; 96372; 96375; 96376; 99285-25; A9270-GY; G0480; J0153; J2060; J2405; J3411; J3430; J3475; J3490; J7030; J7040; J7050

== ENCOUNTER 2017-06-23 00:36 | Emergency (ER) | payer MEDICAID ==
[2017-06-23 01:12] VITALS: BP 200/116
[2017-06-23] MEDS ORDERED: OLANZapine 5 MG Tab PO ONE (01:44)
[2017-06-23] MEDS ORDERED: Ondansetron 4 MG Tab.DIS PO ONE (01:44)
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
== END 2017-06-23 02:03 ==
LOC: JP.ED 00:36
DX: F10.259 Alcohol dependence with alcohol-induced psychotic disorder, unspecified (principal); Y90.0 Blood alcohol level of less than 20 mg/100 ml; S22.31XA Fracture of one rib, right side, initial encounter for closed fracture; R79.1 Abnormal coagulation profile; I11.0 Hypertensive heart disease with heart failure; I50.9 Heart failure, unspecified; I48.91 Unspecified atrial fibrillation; E11.9 Type 2 diabetes mellitus without complications; K74.60 Unspecified cirrhosis of liver; Z88.6 Allergy status to analgesic agent; Z91.048 Other nonmedicinal substance allergy status; Z88.3 Allergy status to other anti-infective agents; Z79.4 Long term (current) use of insulin; Z79.01 Long term (current) use of anticoagulants; Z87.891 Personal history of nicotine dependence; W19.XXXA Unspecified fall, initial encounter
CPT/HCPCS: 36415; 80053; 80305; 81001; 84443; 85027; 85610; 99285; A9270; G0480

== ENCOUNTER 2017-07-26 07:30 | Emergency (ER) | payer MEDICAID ==
[2017-07-26] MEDS ORDERED: Oxymetazoline 0.05% Nasal Spray 15 ML Bottle NAS ONE (08:11)
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
[2017-07-26] MEDS ORDERED: Ondansetron 4 MG/2 ML SDV IVPUSH ONE (11:50)
[2017-07-26 13:14] VITALS: BP 113/82
== END 2017-07-26 14:17 | disposition home or self-care (01) ==
LOC: JP.ED 07:30
DX: R04.0 Epistaxis (principal); R79.1 Abnormal coagulation profile; I11.0 Hypertensive heart disease with heart failure; I50.9 Heart failure, unspecified; E78.00 Pure hypercholesterolemia, unspecified; E11.40 Type 2 diabetes mellitus with diabetic neuropathy, unspecified; Z88.8 Allergy status to other drugs, medicaments and biological substances; Z88.6 Allergy status to analgesic agent; Z79.4 Long term (current) use of insulin; Z79.899 Other long term (current) drug therapy; Z87.891 Personal history of nicotine dependence
CPT/HCPCS: 36415; 36430; 80053; 85025; 85610; 86900; 86901; 96372; 96374; 99284; A9270; J2405; J3430; P9017

== ENCOUNTER 2017-07-27 08:39 | Emergency (ER) | payer MEDICAID ==
[2017-07-27 08:56] VITALS: BP 144/101
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
== END 2017-07-27 10:15 | disposition home or self-care (01) ==
LOC: JP.ED 08:39
DX: R79.1 Abnormal coagulation profile (principal); I11.0 Hypertensive heart disease with heart failure; I50.9 Heart failure, unspecified; E78.00 Pure hypercholesterolemia, unspecified; E11.22 Type 2 diabetes mellitus with diabetic chronic kidney disease; K21.9 Gastro-esophageal reflux disease without esophagitis; Z88.8 Allergy status to other drugs, medicaments and biological substances; Z88.6 Allergy status to analgesic agent; Z88.3 Allergy status to other anti-infective agents; Z79.4 Long term (current) use of insulin; Z79.899 Other long term (current) drug therapy; Z79.01 Long term (current) use of anticoagulants; Z87.891 Personal history of nicotine dependence
CPT/HCPCS: 36415; 85610; 85730; 99284

== ENCOUNTER 2017-08-08 22:35 | Emergency (ER) | payer MEDICAID ==
[2017-08-08 22:52] VITALS: BP 122/81
[2017-08-08] MEDS ORDERED: LORazepam 1 MG Tab PO ONE (23:28)
[2017-08-08] MEDS ORDERED: Ondansetron 4 MG Tab.DIS PO ONE (23:28)
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
== END 2017-08-09 00:12 | disposition home or self-care (01) ==
LOC: JP.ED 22:35
DX: F10.229 Alcohol dependence with intoxication, unspecified (principal); I11.0 Hypertensive heart disease with heart failure; I50.9 Heart failure, unspecified; J44.9 Chronic obstructive pulmonary disease, unspecified; E11.42 Type 2 diabetes mellitus with diabetic polyneuropathy; I48.91 Unspecified atrial fibrillation; E78.00 Pure hypercholesterolemia, unspecified; Z88.8 Allergy status to other drugs, medicaments and biological substances; Z88.6 Allergy status to analgesic agent; Z79.01 Long term (current) use of anticoagulants; Z79.4 Long term (current) use of insulin; Z79.899 Other long term (current) drug therapy; Z87.891 Personal history of nicotine dependence; Z88.3 Allergy status to other anti-infective agents; Y90.6 Blood alcohol level of 120-199 mg/100 ml
CPT/HCPCS: 36415; 80053; 85025; 85610; 99284; A9270; G0480

== ENCOUNTER 2017-12-26 11:26 | Emergency (ER) | payer MEDICAID ==
[2017-12-26 11:52] VITALS: BP 111/66
[2017-12-26] MEDS ORDERED: LORazepam 1 MG Tab PO ONE (12:38)
[2017-12-26] MEDS ORDERED: Ondansetron 4 MG Tab.DIS PO ONE (12:38)
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
== END 2017-12-26 13:41 ==
LOC: JP.ED 11:26
DX: F10.239 Alcohol dependence with withdrawal, unspecified (principal); F10.220 Alcohol dependence with intoxication, uncomplicated; Y90.2 Blood alcohol level of 40-59 mg/100 ml; I11.0 Hypertensive heart disease with heart failure; I50.9 Heart failure, unspecified; J44.9 Chronic obstructive pulmonary disease, unspecified; F41.9 Anxiety disorder, unspecified; F32.9 Major depressive disorder, single episode, unspecified; E11.40 Type 2 diabetes mellitus with diabetic neuropathy, unspecified; Z79.84 Long term (current) use of oral hypoglycemic drugs; Z79.01 Long term (current) use of anticoagulants; Z79.899 Other long term (current) drug therapy; Z79.4 Long term (current) use of insulin; Z91.09 Other allergy status, other than to drugs and biological substances; Z88.6 Allergy status to analgesic agent
CPT/HCPCS: 36415; 80053; 80305; 81001; 85025; 85610; 99285; A9270; G0480

== ENCOUNTER 2018-01-21 17:19 | Emergency (ER) | payer MEDICAID ==
[2018-01-21 17:33] VITALS: BP 91/54
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
== END 2018-01-21 22:56 | disposition home or self-care (01) ==
LOC: JP.ED 17:19
DX: F10.129 Alcohol abuse with intoxication, unspecified (principal); I11.0 Hypertensive heart disease with heart failure; I50.9 Heart failure, unspecified; I48.91 Unspecified atrial fibrillation; J44.9 Chronic obstructive pulmonary disease, unspecified; E11.9 Type 2 diabetes mellitus without complications; Z88.8 Allergy status to other drugs, medicaments and biological substances; Z79.899 Other long term (current) drug therapy; Z88.5 Allergy status to narcotic agent; Y90.7 Blood alcohol level of 200-239 mg/100 ml; Z79.4 Long term (current) use of insulin; Z79.01 Long term (current) use of anticoagulants
CPT/HCPCS: 36415; 99284; G0480

== ENCOUNTER 2018-02-24 10:25 | Emergency (ER) | payer MEDICAID ==
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
[2018-02-24] MEDS ORDERED: Phytonadione 5 MG in Sodium Chloride 0.9% 50 ML IV ONE ×2 (12:38→13:15)
[2018-02-24] MEDS ORDERED: Sodium Chloride 0.9% 1,000 ML IV SCH (12:45)
[2018-02-24] MEDS ORDERED: LORazepam 2 MG/ML SDV IVPUSH ONE ×3 (13:26→16:35)
[2018-02-24] MEDS ORDERED: LORazepam 2 MG/ML SDV IV ONE (17:05)
[2018-02-24 17:41] VITALS: BP 137/89
== END 2018-02-24 17:17 ==
LOC: JP.ED 10:25
DX: F10.239 Alcohol dependence with withdrawal, unspecified (principal); R79.1 Abnormal coagulation profile; E86.0 Dehydration; I11.0 Hypertensive heart disease with heart failure; I50.9 Heart failure, unspecified; F32.9 Major depressive disorder, single episode, unspecified; F41.9 Anxiety disorder, unspecified; Z79.4 Long term (current) use of insulin; Z79.899 Other long term (current) drug therapy; Y90.0 Blood alcohol level of less than 20 mg/100 ml
CPT/HCPCS: 36415; 80053; 80305; 81001; 85025; 85610; 87086; 93005; 96365; 96375; 96376; 99285; G0480; J2060; J3430; J7030; J7050

== ENCOUNTER 2018-07-14 08:15 | Emergency (ER) | payer MEDICAID ==
[2018-07-14 08:30] VITALS: BP 119/81
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
[2018-07-14] MEDS ORDERED: Ondansetron 4 MG Tab.DIS PO ONE (08:44)
[2018-07-14] MEDS ORDERED: LORazepam 1 MG Tab PO ONE (08:49)
[2018-07-14] MEDS ORDERED: Aluminum Hydroxide/Magnesium Hydroxide/Simethicone Susp 30 ML Cup PO ONE (08:50)
[2018-07-14] MEDS ORDERED: MVI, Adult with Vitamin K 10 ML, Thiamine 100 MG, Folic Acid 1 MG, Magnesium Sulfate 3 ... IV SCH ×5 (09:00)
[2018-07-14] MEDS ORDERED: MVI, Adult with Vitamin K 10 ML, Thiamine 100 MG, Folic Acid 1 MG, Magnesium Sulfate 3 ... IV ONE ×5 (09:30)
[2018-07-14] MEDS ORDERED: Ondansetron 4 MG/2 ML SDV IVPUSH ONE (12:22)
== END 2018-07-14 12:55 | disposition other institution (70) ==
LOC: JP.ED 08:15
DX: K29.20 Alcoholic gastritis without bleeding (principal); F10.220 Alcohol dependence with intoxication, uncomplicated; R79.1 Abnormal coagulation profile; I11.0 Hypertensive heart disease with heart failure; I50.9 Heart failure, unspecified; E78.00 Pure hypercholesterolemia, unspecified; J44.9 Chronic obstructive pulmonary disease, unspecified; F41.9 Anxiety disorder, unspecified; F32.9 Major depressive disorder, single episode, unspecified; E11.9 Type 2 diabetes mellitus without complications; Z88.8 Allergy status to other drugs, medicaments and biological substances; Z88.5 Allergy status to narcotic agent; Z79.84 Long term (current) use of oral hypoglycemic drugs; Z79.899 Other long term (current) drug therapy; Z87.891 Personal history of nicotine dependence
CPT/HCPCS: 36415; 82962; 85610; 96365; 96366; 96375; 99285; A9270; G0480; J2405; J3411; J3475; J7030; J3490

== ENCOUNTER 2018-08-26 07:00 | Emergency (ER) | payer MEDICAID ==
[2018-08-26 07:24] VITALS: BP 136/92
[2018-08-26] MEDS ORDERED: LORazepam 2 MG/ML SDV IM ONE (07:50)
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
== END 2018-08-26 09:38 | disposition home or self-care (01) ==
LOC: JP.ED 07:00
DX: F10.229 Alcohol dependence with intoxication, unspecified (principal); I48.91 Unspecified atrial fibrillation; I11.0 Hypertensive heart disease with heart failure; I50.9 Heart failure, unspecified; J44.9 Chronic obstructive pulmonary disease, unspecified; Z95.4 Presence of other heart-valve replacement; Z79.899 Other long term (current) drug therapy; Z79.4 Long term (current) use of insulin; Y90.1 Blood alcohol level of 20-39 mg/100 ml
CPT/HCPCS: 36415; 80048; 85610; 96372; 99283; G0480; J2060

== ENCOUNTER 2018-09-11 07:29 | Emergency (ER) | payer MEDICAID ==
[2018-09-11 07:44] VITALS: BP 116/68
[2018-09-11] MEDS ORDERED: Ondansetron 4 MG Tab.DIS PO ONE ×2 (08:04→10:34)
[2018-09-11] MEDS ORDERED: LORazepam 1 MG Tab PO ONE (08:05)
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
== END 2018-09-11 11:01 | disposition other institution (70) ==
LOC: JP.ED 07:29
DX: K70.10 Alcoholic hepatitis without ascites (principal); F10.230 Alcohol dependence with withdrawal, uncomplicated; Y90.1 Blood alcohol level of 20-39 mg/100 ml; I48.91 Unspecified atrial fibrillation; I11.0 Hypertensive heart disease with heart failure; I50.9 Heart failure, unspecified; E11.9 Type 2 diabetes mellitus without complications; F41.9 Anxiety disorder, unspecified; F32.9 Major depressive disorder, single episode, unspecified; Z79.4 Long term (current) use of insulin; Z79.899 Other long term (current) drug therapy; Z91.09 Other allergy status, other than to drugs and biological substances; Z88.8 Allergy status to other drugs, medicaments and biological substances
CPT/HCPCS: 36415; 82962; 85610; 99284; A9270; G0480

== ENCOUNTER 2018-10-06 00:17 | Emergency (ER) | payer MEDICAID ==
[2018-10-06 00:36] VITALS: BP 152/98
[2018-10-06] MEDS ORDERED: Oxymetazoline 0.05% Nasal Spray 15 ML Bottle NAS ONE (00:41)
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
== END 2018-10-06 02:18 | disposition home or self-care (01) ==
LOC: JP.ED 00:17
DX: R04.0 Epistaxis (principal); R79.89 Other specified abnormal findings of blood chemistry; I11.0 Hypertensive heart disease with heart failure; I50.9 Heart failure, unspecified; J44.9 Chronic obstructive pulmonary disease, unspecified; E11.9 Type 2 diabetes mellitus without complications; K21.9 Gastro-esophageal reflux disease without esophagitis; Z79.4 Long term (current) use of insulin; Z79.899 Other long term (current) drug therapy; Z88.8 Allergy status to other drugs, medicaments and biological substances; Z88.6 Allergy status to analgesic agent
CPT/HCPCS: 36415; 85025; 85610; 96372; 99283; A9270; J3430

== ENCOUNTER 2019-01-13 04:38 | Emergency (ER) | payer MEDICAID ==
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
[2019-01-13] MEDS ORDERED: Sodium Chloride 0.9% 1,000 ML IV SCH (05:45)
--- NOTE | 2019-01-13 06:31 | CRLCT ---
HISTORY: Fall. Head injury. Headache. TECHNIQUE: CT brain without contrast. COMPARISON: CT brain 11/18/2015. FINDINGS: No acute intracranial hemorrhage. No extra-axial collection. No mass effect or midline shift. Ventricular system is normal in caliber morphology. Cisterns are patent. Babin-white differentiation is maintained. Calvarium is intact. Trace right mastoid effusion. Left mastoid air cells are clear. IMPRESSION: No acute intracranial abnormality. Please note that all CT scans at this facility use dose modulation, iterative reconstruction, and/or weight-based dosing when appropriate to reduce radiation dose to as low as reasonably achievable. Dictated by Roger Dan MD @ Jan 13 2019 6:30AM Signed by Dr. Roger Dan @ Jan 13 2019 6:30AM
[2019-01-13] MEDS ORDERED: LORazepam 1 MG Tab PO ONE (06:47)
[2019-01-13] MEDS ORDERED: Aluminum Hydroxide/Magnesium Hydroxide/Simethicone Susp 30 ML Cup PO ONE (06:47)
[2019-01-13] MEDS ORDERED: Thiamine 100 MG Tab PO ONE (08:14)
[2019-01-13] MEDS ORDERED: Lactated Ringers 1,000 ML IV ONE (08:14)
[2019-01-13 08:40] VITALS: BP 103/65; PULSE 86
== END 2019-01-13 10:04 | disposition other institution (70) ==
LOC: JP.ED 04:38
DX: F10.129 Alcohol abuse with intoxication, unspecified (principal); E86.0 Dehydration; R80.9 Proteinuria, unspecified; I11.0 Hypertensive heart disease with heart failure; I50.9 Heart failure, unspecified; E11.42 Type 2 diabetes mellitus with diabetic polyneuropathy; I48.91 Unspecified atrial fibrillation; E78.00 Pure hypercholesterolemia, unspecified; K21.9 Gastro-esophageal reflux disease without esophagitis; J44.9 Chronic obstructive pulmonary disease, unspecified; M19.90 Unspecified osteoarthritis, unspecified site; F41.0 Panic disorder [episodic paroxysmal anxiety]; E66.9 Obesity, unspecified; Z68.35 Body mass index [BMI] 35.0-35.9, adult; Z88.8 Allergy status to other drugs, medicaments and biological substances; Z88.6 Allergy status to analgesic agent; Z79.4 Long term (current) use of insulin; Z79.83 Long term (current) use of bisphosphonates; Z79.01 Long term (current) use of anticoagulants; Z79.51 Long term (current) use of inhaled steroids; Z79.811 Long term (current) use of aromatase inhibitors
CPT/HCPCS: 36415; 70450; 80053; 80305; 81001; 83880; 85025; 85610; 96360; 96361; 99285; A9270; G0480; J7030; J7120

== ENCOUNTER 2019-02-04 16:31 | Emergency (ER) | payer MEDICAID ==
[2019-02-04] MEDS ORDERED: HYDROmorphone 0.5 MG/0.5 ML Syringe IM ONE (17:31)
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
[2019-02-04] MEDS ORDERED: Ondansetron 4 MG Tab.DIS PO ONE (17:45)
[2019-02-04 17:57] VITALS: BP 131/71
[2019-02-04] MEDS ORDERED: Acetaminophen/oxyCODONE 325-5 MG Tab PO ONE (18:11)
== END 2019-02-04 17:58 | disposition home or self-care (01) ==
LOC: JP.ED 16:31
DX: M43.22 Fusion of spine, cervical region (principal); I11.0 Hypertensive heart disease with heart failure; I50.9 Heart failure, unspecified; E11.9 Type 2 diabetes mellitus without complications; E66.9 Obesity, unspecified; J44.9 Chronic obstructive pulmonary disease, unspecified; K21.9 Gastro-esophageal reflux disease without esophagitis; Z87.820 Personal history of traumatic brain injury; Z88.6 Allergy status to analgesic agent; Z88.8 Allergy status to other drugs, medicaments and biological substances; Z79.01 Long term (current) use of anticoagulants; Z79.899 Other long term (current) drug therapy; Z79.4 Long term (current) use of insulin; Z87.891 Personal history of nicotine dependence
CPT/HCPCS: 96372; 99283; A9270; J1170

== ENCOUNTER 2019-02-08 07:23 | Emergency (ER) | payer MEDICAID ==
[2019-02-08 07:39] VITALS: BP 125/85
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
[2019-02-08] MEDS ORDERED: Acetaminophen/oxyCODONE 325-5 MG Tab PO ONE (08:24)
[2019-02-08] MEDS ORDERED: Potassium Chloride 20 MEQ Tab.ER PO ONE (08:25)
[2019-02-08] MEDS ORDERED: Warfarin 5 MG Tab PO ONE (08:29)
[2019-02-08] MEDS ORDERED: Enoxaparin 120 MG/0.8 ML Syringe SUBCUT ONE (09:57)
== END 2019-02-08 12:33 | disposition home or self-care (01) ==
LOC: JP.ED 07:23
DX: F10.10 Alcohol abuse, uncomplicated (principal); D64.9 Anemia, unspecified; M43.22 Fusion of spine, cervical region; K21.9 Gastro-esophageal reflux disease without esophagitis; E11.40 Type 2 diabetes mellitus with diabetic neuropathy, unspecified; J45.909 Unspecified asthma, uncomplicated; E66.9 Obesity, unspecified; Z91.048 Other nonmedicinal substance allergy status; Z79.01 Long term (current) use of anticoagulants; Z79.51 Long term (current) use of inhaled steroids; Z79.4 Long term (current) use of insulin; Z88.8 Allergy status to other drugs, medicaments and biological substances; Z90.49 Acquired absence of other specified parts of digestive tract; Z68.33 Body mass index [BMI] 33.0-33.9, adult
CPT/HCPCS: 36415; 80053; 81001; 82728; 85025; 85610; 96372; 99284; A9270; J1650

== ENCOUNTER 2019-02-19 11:41 | Emergency (ER) | payer MEDICAID ==
[2019-02-19 11:53] VITALS: BP 104/71; PULSE 85
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
== END 2019-02-19 14:33 | disposition home or self-care (01) ==
LOC: JP.ED 11:41
DX: F10.229 Alcohol dependence with intoxication, unspecified (principal); I11.0 Hypertensive heart disease with heart failure; I50.9 Heart failure, unspecified; J44.9 Chronic obstructive pulmonary disease, unspecified; K21.9 Gastro-esophageal reflux disease without esophagitis; F41.9 Anxiety disorder, unspecified; F32.9 Major depressive disorder, single episode, unspecified; E11.9 Type 2 diabetes mellitus without complications; Z79.01 Long term (current) use of anticoagulants; Z91.048 Other nonmedicinal substance allergy status; Z88.6 Allergy status to analgesic agent; Z88.8 Allergy status to other drugs, medicaments and biological substances; Z79.4 Long term (current) use of insulin; Z79.899 Other long term (current) drug therapy; Z86.73 Personal history of transient ischemic attack (TIA), and cerebral infarction without residual deficits
CPT/HCPCS: 36415; 82962; 85610; 99284

== ENCOUNTER 2019-02-21 07:47 | Emergency (ER) | payer MEDICAID ==
[2019-02-21] MEDS ORDERED: Acetaminophen/oxyCODONE 325-5 MG Tab PO ONE (08:47)
[2019-02-21] MEDS ORDERED: Cyclobenzaprine 10 MG Tab PO ONE (08:47)
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
[2019-02-21] MEDS ORDERED: Ondansetron 4 MG Tab.DIS PO ONE (09:08)
[2019-02-21 09:43] VITALS: BP 116/69; PULSE 129
--- NOTE | 2019-02-21 09:47 | CRLCR ---
INDICATION: Trauma; pain left shoulder. COMPARISON: None. TECHNIQUE: Four view study left shoulder. FINDINGS: No evidence of fracture or dislocation. No bone or soft tissue abnormalities. IMPRESSION: Negative radiographic examination of the left shoulder. Dictated by Stan Gómez MD @ Feb 21 2019 9:45AM Signed by Dr. Stan Gómez @ Feb 21 2019 9:46AM
--- NOTE | 2019-02-21 09:50 | CRLCR ---
INDICATION: Fell; back pain. COMPARISON: Radiographic examination of the lumbar sacral spine May 23, 2008. TECHNIQUE: Three-view study lumbosacral spine. FINDINGS: Grade 1 spondylolisthesis of L4 without any associated spondylolysis; relatively new when compared to May 23, 2008. No evidence of acute fracture or dislocation. Status post cholecystectomy. Impression: 1. No evidence of acute fracture or dislocation. 2. Grade 1 spondylolisthesis L4. 3. Status post cholecystectomy. Dictated by Stan Gómez MD @ Feb 21 2019 9:46AM Signed by Dr. Stan Gómez @ Feb 21 2019 9:48AM
--- NOTE | 2019-02-21 10:45 | CRLCT ---
INDICATION: Trauma; fell. COMPARISON: CT head without intravenous contrast January 24, 2019. TECHNIQUE: CT head without intravenous contrast. FINDINGS: No evidence of intracranial hemorrhage. No mass lesions. No evidence of shift of the midline structures. The calvarium is unremarkable. No interval change. Complete resolution of the subarachnoid hemorrhage in the right frontal lobe when compared to the previous study IMPRESSION: Negative unenhanced head CT. Please note that all CT scans at this facility use dose modulation, iterative reconstruction, and/or weight-based dosing when appropriate to reduce radiation dose to as low as reasonably achievable. Dictated by Stan Gómez MD @ Feb 21 2019 10:38AM Signed by Dr. Stan Gómez @ Feb 21 2019 10:43AM
--- NOTE | 2019-02-21 10:49 | CRLCT ---
INDICATION: Trauma; neck pain. COMPARISON: CT cervical spine January 14, 2015. TECHNIQUE: CT cervical spine without intravenous contrast; coronal and sagittal reformats. FINDINGS: Anterior cervical fusion at C5-6 since the last previous study. Anatomic alignment. No evidence of acute fracture or dislocation. Ossification ligamentum nuchae IMPRESSION: 1. No evidence of acute fracture or dislocation. 2. Anterior fusion C5-6 with intact hardware. 3. Ossification ligamentum nuchae. Please note that all CT scans at this facility use dose modulation, iterative reconstruction, and/or weight-based dosing when appropriate to reduce radiation dose to as low as reasonably achievable. Dictated by Stan Gómez MD @ Feb 21 2019 10:43AM Signed by Dr. Stan Gómez @ Feb 21 2019 10:47AM
[2019-02-21] MEDS ORDERED: LORazepam 1 MG Tab PO ONE (10:53)
== END 2019-02-21 12:47 | disposition home or self-care (01) ==
LOC: JP.ED 07:47
DX: S10.93XA Contusion of unspecified part of neck, initial encounter (principal); I11.0 Hypertensive heart disease with heart failure; K21.9 Gastro-esophageal reflux disease without esophagitis; I50.9 Heart failure, unspecified; E66.9 Obesity, unspecified; F41.0 Panic disorder [episodic paroxysmal anxiety]; F32.9 Major depressive disorder, single episode, unspecified; J45.909 Unspecified asthma, uncomplicated; M19.90 Unspecified osteoarthritis, unspecified site; E11.40 Type 2 diabetes mellitus with diabetic neuropathy, unspecified; F10.129 Alcohol abuse with intoxication, unspecified; Z79.899 Other long term (current) drug therapy; Z90.49 Acquired absence of other specified parts of digestive tract; Z68.30 Body mass index [BMI] 30.0-30.9, adult; Z86.73 Personal history of transient ischemic attack (TIA), and cerebral infarction without residual deficits; Z79.4 Long term (current) use of insulin; Z79.51 Long term (current) use of inhaled steroids; Z88.8 Allergy status to other drugs, medicaments and biological substances; Z91.048 Other nonmedicinal substance allergy status; W19.XXXA Unspecified fall, initial encounter
CPT/HCPCS: 36415; 70450; 72100; 72125; 73030; 80320; 82947; 85610; 99284; A9270; G0480

== ENCOUNTER 2019-02-25 05:20 | Emergency (ER) | payer MEDICAID ==
--- NOTE | 2019-02-25 05:59 | EDM.PDOC ---
ED HPI GENERAL MEDICAL PROBLEM - General Chief Complaint: Head Injury Stated Complaint: [facility] Time Seen by Provider: 02/25/19 05:40 Source of Information: Reports: Patient, EMS History Limitations: Reports: Intoxication - History of Present Illness INITIAL COMMENTS - FREE TEXT/NARRATIVE: 59-year-old male who just got out of [facility] less than 20 hours ago arrives by ambulance after falling at home while intoxicated. He is on Coumadin and sustained a head injury. Brief loss of consciousness possible. No neck pain. Onset: Unknown/Unsure Associated Symptoms: Denies: Fever/Chills, Headaches, Nausea/Vomiting, Weakness head Pain Score (Numeric/FACES): 7 - Related Data Allergies Allergy/AdvReac Type Severity Reaction Status Date / Time meloxicam Allergy Unknown Rash Verified 02/25/19 05:23 povidone-iodine Allergy Unknown Rash Verified 02/25/19 05:23 [From Betadine] soap [From Betadine] Allergy Unknown Rash Verified 02/25/19 05:23 ketorolac [From Toradol] Allergy Hives Verified 02/25/19 05:23 Home Meds: Home Meds Insulin Aspart [NovoLOG] 20 units SQ TIDAC 02/22/13 [History] Insulin Detemir [Levemir] 50 units SQ BEDTIME 02/22/13 [History] Metoprolol Tartrate 50 mg PO BID 02/22/13 [History] Montelukast [Singulair] 10 mg PO BEDTIME 02/22/13 [History] Omeprazole 40 mg PO DAILY 02/22/13 [History] Warfarin [Coumadin] 4 mg PO DAILY 11/17/15 [History] atorvaSTATin [Lipitor] 80 mg PO DAILY 05/28/17 [History] metFORMIN [Glucophage] 1,000 mg PO BIDMEALS 05/28/17 [History] hydroCHLOROthiazide [Hydrochlorothiazide] 50 mg PO DAILY 12/26/17 [History] Cyanocobalamin (Vitamin B-12) [B-12] 1 tab PO DAILY 02/24/18 [History] Lisinopril 10 mg PO DAILY 02/24/18 [History] Loratadine 1 tab PO ASDIRECTED 02/24/18 [History] Multivitamin [Multivitamins] 1 tab PO DAILY 02/24/18 [History] Albuterol Sulfate [Albuterol Sulfate Hfa] 1 - 2 puff IH Q4H 08/26/18 [History] Ondansetron [Ondansetron ODT] 1 tab PO Q8H PRN 08/26/18 [History] Albuterol [Proventil Neb Soln] 1 dose INH ASDIRECTED 09/11/18 [History] Alum Hydrox/Mag Hydrox/Simeth [Maalox Advanced] 15 ml PO Q4H PRN 09/11/18 [ History] Cholecalciferol (Vitamin D3) [Vitamin D3] 1 tab PO DAILY 09/11/18 [History] Folic Acid 1 mg PO DAILY 01/13/19 [History] Formoterol/Mometasone [Dulera 100-50 MCG] 2 puff IH BID 01/13/19 [History] hydrOXYzine HCl [Atarax] 25 mg PO QID 01/13/19 [History] Past Medical History HEENT History: Reports: Hard of Hearing Cardiovascular History: Reports: Afib, Angina, Heart Failure, Heart Valve Replacement, High Cholesterol, Hypertension, Syncope Respiratory History: Reports: Asthma, COPD Gastrointestinal History: Reports: Cirrhosis, Gastritis, GERD, GI Bleed, Pancreatitis Genitourinary History: Reports: Renal Disease Musculoskeletal History: Reports: Back Pain, Chronic, Fracture, Osteoarthritis Other Musculoskeletal History: cyst behind r knee. Known pain in r shoulder after fall 2 years ago. [facility]va august 2015 broken wrist with hardware repair Neurological History: Reports: Head Trauma, Migraines, Neuropathy, Peripheral, Seizure, TIA, Other (See Below) Other Neuro History: ETOH Seizure. brain bleed Psychiatric History: Reports: Addiction, Anxiety, Depression, Panic Attack, Other (See Below) Other Psychiatric History: ETOH addiction Endocrine/Metabolic History: Reports: Diabetes, Type II, Obesity/BMI 30+ Hematologic History: Reports: B12 Deficiency, Blood Transfusion(s) - Infectious Disease History Infectious Disease History: Reports: Chicken Pox - Past Surgical History Cardiovascular Surgical History: Reports: Valve Replacement GI Surgical History: Reports: Cholecystectomy Neurological Surgical History: Reports: C-Spine, Spinal Fusion Other Neurological Surgeries/Procedures: c-5-6 Musculoskeletal Surgical History: Reports: Other (See Below) Other Musculoskeletal Surgeries/Procedures:: pins and plate in r wrist r middle finger plate Social & Family History - Family History Family Medical History: Unobtainable Cardiac: Reports: Hypertension : Reports: Renal Disease/Insufficiency Endocrine/Metabolic: Reports: Diabetes, type II Oncologic: Reports: Leukemia - Tobacco Use Smoking Status *Q: Never Smoker - Caffeine Use Caffeine Use: Reports: Coffee Caffeine Use Comment: 1 cup per day - Recreational Drug Use Recreational Drug Use: No - Living Situation & Occupation Living situation: Reports: (lives with in [place], [place].) ED ROS GENERAL - Review of Systems Review Of Systems: See Below Constitutional: Denies: Fever, Chills HEENT: Denies: Vision Change Respiratory: Denies: Shortness of Breath Cardiovascular: Denies: Chest Pain GI/Abdominal: Denies: Abdominal Pain, Nausea, Vomiting Musculoskeletal: Reports: Back Pain Neurological: Denies: Headache ED EXAM, HEAD INJURY - Physical Exam Exam: See Below Exam Limited By: Intoxication General Appearance: Alert Head: Other (Small hematoma on the occiput of the scalp) Eyes: Bilateral Eye: EOMI (No jaundice) Neck: No: Stiff Neck, Tenderness Respiratory: No Respiratory Distress Cardiovascular: Regular Rate, Rhythm, Tachycardia GI/Abdominal Exam: Soft, Non-Tender Neurologic: No Motor/Sensory Deficits, Oriented x 3, Other (Intoxicated) Course - Vital Signs Last Recorded V/S: Last Vital Signs Temp 97.0 F 02/25/19 05:27 Pulse 113 H 02/25/19 05:27 Resp 14 02/25/19 05:27 BP 118/66 02/25/19 05:27 Pulse Ox 97 02/25/19 05:27 - Orders/Labs/Meds Meds: Medications Discontinued Medications Generic Name Dose Route Start Last Admin Trade Name Brock PRN Reason Stop Dose Admin Ondansetron HCl 4 mg 02/25/19 06:07 02/25/19 06:12 Zofran IVPUSH 02/25/19 06:08 4 mg ONETIME ONE Administration - Re-Assessments/Exams Free Text/Narrative Re-Assessment/Exam: 02/25/19 06:01 CT of the head without contrast was obtained. Departure - Departure Time of Disposition: 06:39 Disposition: Home, Self-Care 01 Clinical Impression: Alcohol intoxication Qualifiers: Complication of substance-induced condition: with unspecified complication Qualified Code(s): F10.929 - Alcohol use, unspecified with intoxication, unspecified Hematoma of scalp Qualifiers: Encounter type: initial encounter Qualified Code(s): S00.03XA - Contusion of scalp, initial encounter - Discharge Information Instructions: Alcohol Intoxication, [id number] Referrals: PCP,None [Primary Care Provider] - Forms: ED Department Discharge Care Plan Goals: Avoid any further alcohol intake, and enter treatment center if needed.
[2019-02-25] MEDS ORDERED: Ondansetron 4 MG/2 ML SDV IVPUSH ONE (06:07)
[2019-02-25 06:20] VITALS: BP 118/66; PULSE 113
--- NOTE | 2019-02-25 06:57 | CRLCT ---
HISTORY: Fell, hit head. TECHNIQUE: Noncontrast head CT. COMPARISON: 02/21/2019. FINDINGS: There is no acute intracranial hemorrhage or acute ischemic infarct. On the right, there has been no change in the globus pallidus calcification. There is mild generalized cerebral and cerebellar volume loss. Areas of white matter low attenuation are nonspecific but likely reflect sequelae of mild chronic small vessel ischemic changes. No mass effect or midline shift. No hydrocephalus. No extra-axial collection or hematoma. No acute loss of knowles-white differentiation. Opacification a few inferior mastoid air cells on the right. Left-sided mastoid air cells are clear. Paranasal sinuses are clear aside from mild mucosal thickening involving a few ethmoid air cells. There is no acute skull fracture. IMPRESSION: 1. No acute intracranial injury or disease. 2. Mild generalized cerebral and cerebellar volume loss. 3. A few areas of white matter low attenuation which are nonspecific but likely reflect sequelae of mild chronic small vessel ischemic changes. Dictated by Kartik Mukherjee MD @ 02/25/2019 6:54:47 AM Please note that all CT scans at this facility use dose modulation, iterative reconstruction, and/or weight-based dosing when appropriate to reduce radiation dose to as low as reasonably achievable. Dictated by: Kartik Mukherjee MD @ 02/25/2019 06:54:52 (Electronically Signed)
== END 2019-02-25 06:39 | disposition home or self-care (01) ==
LOC: JP.ED 05:20
DX: S00.03XA Contusion of scalp, initial encounter (principal); F10.229 Alcohol dependence with intoxication, unspecified; Z88.6 Allergy status to analgesic agent; Z91.09 Other allergy status, other than to drugs and biological substances; Z88.8 Allergy status to other drugs, medicaments and biological substances; I11.0 Hypertensive heart disease with heart failure; I50.9 Heart failure, unspecified; K21.9 Gastro-esophageal reflux disease without esophagitis; Z79.01 Long term (current) use of anticoagulants; Z86.73 Personal history of transient ischemic attack (TIA), and cerebral infarction without residual deficits; Z79.899 Other long term (current) drug therapy; W19.XXXA Unspecified fall, initial encounter; Y92.009 Unspecified place in unspecified non-institutional (private) residence as the place of occurrence of the external cause
CPT/HCPCS: 70450; 96374; 99284; J2405

== ENCOUNTER 2019-02-28 10:22 | Emergency (ER) | payer MEDICAID ==
[2019-02-28] MEDS ORDERED: Baclofen 10 MG Tab PO ONE (11:14)
[2019-02-28] MEDS ORDERED: HYDROmorphone 0.5 MG/0.5 ML Syringe IM ONE ×2 (11:14→16:17)
--- NOTE | 2019-02-28 11:16 | EDM.PDOC ---
ED HPI GENERAL MEDICAL PROBLEM - General Chief Complaint: Back Pain or Injury Stated Complaint: FELL AND BACK IS VERY PAINFUL Time Seen by Provider: 02/28/19 11:15 Source of Information: Reports: Patient History Limitations: Reports: No Limitations - History of Present Illness INITIAL COMMENTS - FREE TEXT/NARRATIVE: pt just came from detox and he is having lower back pain. He did have 2 sig falls prior to him going to detox. Onset: Other (pt has had pain since he has elvi at detox. ) Duration: Hour(s): Associated Symptoms: Reports: No Other Symptoms Left Lower Back Pain Score (Numeric/FACES): 8 - Related Data Allergies Allergy/AdvReac Type Severity Reaction Status Date / Time meloxicam Allergy Unknown Rash Verified 02/28/19 10:28 povidone-iodine Allergy Unknown Rash Verified 02/28/19 10:28 [From Betadine] soap [From Betadine] Allergy Unknown Rash Verified 02/28/19 10:28 ketorolac [From Toradol] Allergy Hives Verified 02/28/19 10:28 Home Meds: Home Meds Insulin Aspart [NovoLOG] 20 units SQ TIDAC 02/22/13 [History] Insulin Detemir [Levemir] 50 units SQ BEDTIME 02/22/13 [History] Metoprolol Tartrate 50 mg PO BID 02/22/13 [History] Montelukast [Singulair] 10 mg PO BEDTIME 02/22/13 [History] Omeprazole 40 mg PO DAILY 02/22/13 [History] Warfarin [Coumadin] 4 mg PO DAILY 11/17/15 [History] atorvaSTATin [Lipitor] 80 mg PO DAILY 05/28/17 [History] metFORMIN [Glucophage] 1,000 mg PO BIDMEALS 05/28/17 [History] hydroCHLOROthiazide [Hydrochlorothiazide] 50 mg PO DAILY 12/26/17 [History] Cyanocobalamin (Vitamin B-12) [B-12] 1 tab PO DAILY 02/24/18 [History] Lisinopril 10 mg PO DAILY 02/24/18 [History] Loratadine 1 tab PO ASDIRECTED 02/24/18 [History] Multivitamin [Multivitamins] 1 tab PO DAILY 02/24/18 [History] Albuterol Sulfate [Albuterol Sulfate Hfa] 1 - 2 puff IH Q4H 08/26/18 [History] Ondansetron [Ondansetron ODT] 1 tab PO Q8H PRN 08/26/18 [History] Albuterol [Proventil Neb Soln] 1 dose INH ASDIRECTED 09/11/18 [History] Alum Hydrox/Mag Hydrox/Simeth [Maalox Advanced] 15 ml PO Q4H PRN 09/11/18 [ History] Cholecalciferol (Vitamin D3) [Vitamin D3] 1 tab PO DAILY 09/11/18 [History] Folic Acid 1 mg PO DAILY 01/13/19 [History] Formoterol/Mometasone [Dulera 100-50 MCG] 2 puff IH BID 01/13/19 [History] hydrOXYzine HCl [Atarax] 25 mg PO QID 01/13/19 [History] Past Medical History HEENT History: Reports: Hard of Hearing Cardiovascular History: Reports: Afib, Angina, Heart Failure, Heart Valve Replacement, High Cholesterol, Hypertension, Syncope Respiratory History: Reports: Asthma, COPD Gastrointestinal History: Reports: Cirrhosis, Gastritis, GERD, GI Bleed, Pancreatitis Genitourinary History: Reports: Renal Disease Musculoskeletal History: Reports: Back Pain, Chronic, Fracture, Osteoarthritis Other Musculoskeletal History: cyst behind r knee. Known pain in r shoulder after fall 2 years ago. [facility]va august 2015 broken wrist with hardware repair Neurological History: Reports: Head Trauma, Migraines, Neuropathy, Peripheral, Seizure, TIA, Other (See Below) Other Neuro History: ETOH Seizure. brain bleed Psychiatric History: Reports: Addiction, Anxiety, Depression, Panic Attack, Other (See Below) Other Psychiatric History: ETOH addiction Endocrine/Metabolic History: Reports: Diabetes, Type II, Obesity/BMI 30+ Hematologic History: Reports: B12 Deficiency, Blood Transfusion(s) - Infectious Disease History Infectious Disease History: Reports: Chicken Pox - Past Surgical History Cardiovascular Surgical History: Reports: Valve Replacement GI Surgical History: Reports: Cholecystectomy Neurological Surgical History: Reports: C-Spine, Spinal Fusion Other Neurological Surgeries/Procedures: c-5-6 Musculoskeletal Surgical History: Reports: Other (See Below) Other Musculoskeletal Surgeries/Procedures:: pins and plate in r wrist r middle finger plate Dermatological Surgical History: Reports: Other (See Below) Social & Family History - Family History Family Medical History: Unobtainable Cardiac: Reports: Hypertension : Reports: Renal Disease/Insufficiency Endocrine/Metabolic: Reports: Diabetes, type II Oncologic: Reports: Leukemia - Tobacco Use Smoking Status *Q: Never Smoker - Caffeine Use Caffeine Use: Reports: Coffee Caffeine Use Comment: 1 cup per day - Recreational Drug Use Recreational Drug Use: No - Living Situation & Occupation Living situation: Reports: (lives with in [place], [place].) ED ROS GENERAL - Review of Systems Review Of Systems: See Below Constitutional: Reports: No Symptoms HEENT: Reports: No Symptoms Respiratory: Reports: No Symptoms Cardiovascular: Reports: No Symptoms Endocrine: Reports: No Symptoms GI/Abdominal: Reports: No Symptoms : Reports: No Symptoms Musculoskeletal: Reports: Other (pt has had increased back pain. ) Skin: Reports: No Symptoms Neurological: Reports: No Symptoms Psychiatric: Reports: No Symptoms ED EXAM,LOWER BACK PAIN/INJURY - Physical Exam Exam: See Below Text/Narrative:: pt arrived with pain in his lower back. He did fall several times prior to him going to detox. Exam Limited By: No Limitations General Appearance: Alert, Anxious, Moderate Distress, Other (pupils are equal and reactive. ) Ears: Normal TMs Nose: Normal Inspection Throat/Mouth: Normal Inspection Head: Atraumatic Neck: Normal Inspection Respiratory/Chest: No Respiratory Distress Cardiovascular: Irregularly Irregular GI/Abdominal: Soft, Non-Tender (Male) Exam: Deferred Rectal (Males) Exam: Deferred Back Exam: Other (pt is quite tender in his upp lumbar spin. ) Extremities: Normal Inspection Neurological: Alert, Oriented x 3 Psychiatric: Normal Affect Course - Vital Signs Last Recorded V/S: Last Vital Signs Temp 36.8 C 02/28/19 15:39 Pulse 110 H 02/28/19 16:15 Resp 16 02/28/19 16:15 BP 122/85 02/28/19 16:15 Pulse Ox 96 02/28/19 16:15 - Orders/Labs/Meds Labs: Laboratory Tests 02/28/19 02/28/19 Range/Units 13:05 13:05 PT 21.9 H (9.5-12.0) sec INR 2.12 H (0.80-1.20) Sodium 135 L (140-148) mmol/L Potassium 4.0 (3.6-5.2) mmol/L Chloride 97 L (100-108) mmol/L Carbon Dioxide 26 (21-32) mmol/L Anion Gap 16.0 H (5.0-14.0) mmol/L BUN 18 D (7-18) mg/dL Creatinine 1.4 H (0.8-1.3) mg/dL Est Cr Clr Drug Dosing 59.76 mL/min Estimated GFR (MDRD) 52 L (>60) Glucose 120 H (74-106) mg/dL Calcium 8.0 L (8.5-10.1) mg/dL Total Bilirubin 0.5 D (0.2-1.0) mg/dL AST 30 (15-37) U/L ALT 23 (12-78) U/L Alkaline Phosphatase 109 (46-116) U/L Total Protein 7.6 (6.4-8.2) g/dL Albumin 2.7 L (3.4-5.0) g/dL Globulin 4.9 H (2.3-3.5) g/dL Albumin/Globulin Ratio 0.6 L (1.2-2.2) Meds: Medications Discontinued Medications Generic Name Dose Route Start Last Admin Trade Name Brock PRN Reason Stop Dose Admin Baclofen 10 mg 02/28/19 11:14 02/28/19 11:22 Lioresal PO 02/28/19 11:15 10 mg ONETIME ONE Administration Hydromorphone HCl 0.5 mg 02/28/19 11:14 02/28/19 11:22 Dilaudid IM 02/28/19 11:15 0.5 mg ONETIME ONE Administration Hydromorphone HCl 0.5 mg 02/28/19 16:17 02/28/19 16:27 Dilaudid IM 02/28/19 16:18 0.5 mg ONETIME ONE Administration Lidocaine 700 mg 02/28/19 14:38 02/28/19 14:42 Lidoderm 5% TOP 02/28/19 14:39 700 mg ONETIME ONE Administration Ondansetron HCl 4 mg 02/28/19 12:27 02/28/19 12:32 Zofran Odt PO 02/28/19 12:28 4 mg ONETIME ONE Administration Oxycodone/Acetaminophen 1 tab 02/28/19 12:56 02/28/19 13:15 Percocet 325-5 Mg PO 02/28/19 12:57 1 tab ONETIME ONE Administration - Re-Assessments/Exams Free Text/Narrative Re-Assessment/Exam: 02/28/19 14:22 t pt had a lumbar series done which showed a compression fracture that is new of L2 He is quite uncomfortable with this. He just got out of detox. 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 9 14:54 Departure - Departure Time of Disposition: 14:24 Disposition: Home, Self-Care 01 Condition: Fair Clinical Impression: Compression fracture of L2, Status post alcohol detoxification - Discharge Information Instructions: Nonspecific Chest Pain, [id number] Referrals: PCP,None [Primary Care Provider] - Forms: ED Department Discharge Care Plan Goals: pt is having severe pain in the upper lumbar area, motrin 600mg tid, percocet 5/ 325q6h prnfor pain--severe, pt is get his rule 25 on thur. He will hopefully get urgent placement antabuse 250 daily. His girl friend will give them to him
[2019-02-28] MEDS ORDERED: Ondansetron 4 MG Tab.DIS PO ONE (12:27)
--- NOTE | 2019-02-28 12:43 | CRLCR ---
HISTORY: Severe left lumbar pain radiating into the leg and knee. COMPARISON: 02/21/2019 and 05/23/2008 FINDINGS: The lumbar spine was examined with AP, lateral neutral, and lateral flexion and extension views for a total of 4 views. Again seen is mild scoliosis of the upper lumbar spine convex towards the right. There is a new moderate L2 compression fracture. There is no change in minimal anterior wedging of T12 and L1 when compared to the previous study from 2007, a congenital variant versus old minimal compression fractures. The rest of the lumbar vertebral bodies are normal in height with no sign of additional compression fracture There is grade 1 anterior subluxation of L4 on L5 which increases slightly during flexion, indicating mild instability. There is no change in mild loss of L4-5 disc height from mild disc degenerative disease. The rest of the vertebral bodies remain in anatomic alignment with no sign of abnormal motion. Range of motion with flexion and extension is slightly decreased. There is no change and moderate L5-S1 disc degenerative disease. The rest of the intervertebral discs remain normal in height. The visualized bony pelvis and bowel gas pattern are normal in appearance. Clips are again seen in the right upper quadrant consistent with cholecystectomy IMPRESSION: New moderate anterior wedging of the L2 vertebral body representing an acute L2 compression fracture which has occurred since the previous lumbar spine examination of just 7 days ago. Mild instability of L4-L5, with slightly increased grade 1 anterior subluxation of L4 on L5 with flexion. Mild L4-5 and moderate L5-S1 disc degenerative disease. Dictated by Migel Branham MD @ Feb 28 2019 12:32PM Signed by Dr. Migel Branham @ Feb 28 2019 12:41PM
[2019-02-28] MEDS ORDERED: Acetaminophen/oxyCODONE 325-5 MG Tab PO ONE (12:56)
[2019-02-28] MEDS ORDERED: Lidocaine 5% 700 MG Patch TOP ONE (14:38)
[2019-02-28 16:17] VITALS: BP 122/85; PULSE 110
== END 2019-02-28 17:29 | disposition home or self-care (01) ==
LOC: JP.ED 10:22
DX: S32.020A Wedge compression fracture of second lumbar vertebra, initial encounter for closed fracture (principal); F10.229 Alcohol dependence with intoxication, unspecified; I11.0 Hypertensive heart disease with heart failure; I50.9 Heart failure, unspecified; E78.00 Pure hypercholesterolemia, unspecified; J44.9 Chronic obstructive pulmonary disease, unspecified; K21.9 Gastro-esophageal reflux disease without esophagitis; F41.9 Anxiety disorder, unspecified; F32.9 Major depressive disorder, single episode, unspecified; E11.9 Type 2 diabetes mellitus without complications; Z88.8 Allergy status to other drugs, medicaments and biological substances; Z91.048 Other nonmedicinal substance allergy status; Z88.6 Allergy status to analgesic agent; Z79.4 Long term (current) use of insulin; Z79.899 Other long term (current) drug therapy; Z79.01 Long term (current) use of anticoagulants; W19.XXXA Unspecified fall, initial encounter
CPT/HCPCS: 36415; 72110; 80053; 85610; 96372; 99283; A9270; J1170

== ENCOUNTER 2019-03-18 17:49 | Emergency (ER) | payer MEDICAID ==
[2019-03-18 18:37] VITALS: BP 158/68; PULSE 83
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
[2019-03-18] MEDS ORDERED: Acetaminophen/oxyCODONE 325-5 MG Tab PO ONE (19:24)
== END 2019-03-18 19:45 | disposition home or self-care (01) ==
LOC: JP.ED 17:49
DX: S32.020D Wedge compression fracture of second lumbar vertebra, subsequent encounter for fracture with routine healing (principal); I10 Essential (primary) hypertension; J44.9 Chronic obstructive pulmonary disease, unspecified; E11.42 Type 2 diabetes mellitus with diabetic polyneuropathy; E66.9 Obesity, unspecified; K21.9 Gastro-esophageal reflux disease without esophagitis; E78.5 Hyperlipidemia, unspecified; Z88.6 Allergy status to analgesic agent; Z91.048 Other nonmedicinal substance allergy status; Z79.899 Other long term (current) drug therapy; Z79.4 Long term (current) use of insulin; Z79.01 Long term (current) use of anticoagulants; Z68.32 Body mass index [BMI] 32.0-32.9, adult; Z95.2 Presence of prosthetic heart valve; X58.XXXD Exposure to other specified factors, subsequent encounter
CPT/HCPCS: 99283; A9270

== ENCOUNTER 2019-05-23 07:48 | Emergency (ER) | payer MEDICAID ==
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
[2019-05-23] MEDS ORDERED: Sodium Chloride 0.9% 1,000 ML IV SCH ×2 (08:00→09:30)
[2019-05-23 08:07] VITALS: PULSE 101
[2019-05-23] MEDS ORDERED: Ondansetron 4 MG/2 ML SDV IVPUSH ONE ×2 (08:20→11:56)
[2019-05-23] MEDS ORDERED: LORazepam 1 MG Tab PO ONE ×2 (08:43→12:13)
--- NOTE | 2019-05-23 09:23 | CRLCR ---
INDICATION: Short of breath. TECHNIQUE: Portable chest. COMPARISON: 06/11/2016. IMPRESSION: Heart mediastinum: No change. Prior midline sternotomy. Aortic valve replacement. Pulmonary vessels appear normal. Lungs and pleura: Lungs are clear. No pneumothorax. Miscellaneous: Interval placement of cervical metallic ACDF hardware. Dictated by Watson Monk MD @ May 23 2019 9:22AM Signed by Dr. Watson Monk @ May 23 2019 9:22AM
[2019-05-23] MEDS ORDERED: Albuterol 0.083% 2.5 MG/3 ML Neb Soln NEB ONE (09:33)
[2019-05-23 12:03] VITALS: BP 146/93
== END 2019-05-23 12:39 ==
LOC: JP.ED 07:48
DX: S32.019A Unspecified fracture of first lumbar vertebra, initial encounter for closed fracture (principal); S32.029A Unspecified fracture of second lumbar vertebra, initial encounter for closed fracture
CPT/HCPCS: 36415; 71045; 80053; 80305; 80320; 81001; 83690; 83880; 85025; 85610; 94640; 96361; 96374; 96376; 99285; A9270; J2405; J7030; 99284; G0480

== ENCOUNTER 2019-06-14 10:21 | Observation (INO) | payer MEDICAID ==
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
--- NOTE | 2019-06-14 12:50 | CRLCT ---
INDICATION: Pain in the head and cervical spine. COMPARISON: CT head 02/25/2019. TECHNIQUE: CT of the head without IV contrast. Coronal and sagittal reconstructions are provided. FINDINGS: No intracranial hemorrhage, mass effect, or evidence of acute infarct. No midline shift. No abnormal extra-axial fluid collections. Mild generalized cerebral and cerebellar volume loss. Normal caliber ventricular system. Intracranial vascular calcifications. Orbits and extraocular muscles are symmetric. Paranasal sinuses and mastoid air cells are clear. No acute fracture. Soft tissues are unremarkable. IMPRESSION: : No acute intracranial findings. Please note that all CT scans at this facility use dose modulation, iterative reconstruction, and/or weight-based dosing when appropriate to reduce radiation dose to as low as reasonably achievable. Dictated by Reyna Cotton MD @ Jun 14 2019 12:44PM Signed by Dr. Reyna Cotton @ Jun 14 2019 12:48PM
--- NOTE | 2019-06-14 13:01 | CRLCT ---
Indication: Pain in the head and cervical spine after fall. Technique: CT cervical spine without IV contrast. Coronal and sagittal reconstructions. Comparison: CT cervical spine 02/21/2019. Findings: No acute fracture or traumatic malalignment of the cervical spine. Normal vertebral body alignment. Vertebral body heights are well maintained. Anterior instrumented fusion of C5-C6. Hardware appears intact. Mild spondylotic changes of the cervical spine including hypertrophic spurring and facet arthropathy. Mild neural foraminal narrowing on the right at C3-C4 and mild on the right at C4-C5. Multilevel posterior disc osteophyte complexes which do not cause significant spinal canal stenosis. Soft tissue calcification in the neck posteriorly. Paraspinal soft tissues are otherwise unremarkable. Visualized intracranial contents are unremarkable. The mastoid air cells are clear. The thyroid gland is normal in appearance. Impression: 1. No acute fracture or traumatic malalignment of cervical spine. 2. Intact instrumented fusion of C5-C6. 3. Mild spondylotic changes of the cervical spine. Please note that all CT scans at this facility use dose modulation, iterative reconstruction, and/or weight-based dosing when appropriate to reduce radiation dose to as low as reasonably achievable. Dictated by Reyna Cotton MD @ Jun 14 2019 12:49PM Signed by Dr. Reyna Cotton @ Jun 14 2019 1:00PM
[2019-06-14] MEDS ORDERED: HYDROmorphone 0.5 MG/0.5 ML Syringe IVPUSH ONE (13:04)
[2019-06-14] MEDS ORDERED: Sodium Chloride 0.9% 1,000 ML IV SCH ×2 (13:15)
[2019-06-14] MEDS ORDERED: Ondansetron 4 MG/2 ML SDV IVPUSH ONE (13:44)
[2019-06-14] MEDS ORDERED: Phytonadione 5 MG in Sodium Chloride 0.9% 50 ML IV ONE (14:13)
[2019-06-14] MEDS ORDERED: LORazepam 2 MG/ML SDV IVPUSH ONE (14:47)
--- NOTE | 2019-06-14 15:05 | CRLCR ---
INDICATION: Shortness of breath. TECHNIQUE: Chest 1 view COMPARISON: Chest radiograph 05/23/2019. FINDINGS: No significant change since prior exam. No focal consolidation, pleural effusion, or pneumothorax. Normal heart size and pulmonary vascularity. Mildly tortuous aorta. Sternotomy. Probable old left rib fractures. Cervical spine hardware. IMPRESSION: No acute cardiopulmonary findings. Dictated by Reyna Cotton MD @ Jun 14 2019 2:59PM Signed by Dr. Reyna Cotton @ Jun 14 2019 3:02PM
[2019-06-14] MEDS ORDERED: Bacitracin Oint 1 GM U/D Packet TOP ONE (16:51)
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
[2019-06-14] MEDS ORDERED: Glucose Gel 15 GM in 37.5 GM Tube PO PRN (18:57)
[2019-06-14] MEDS ORDERED: 50% Dextrose in Water 50 ML Syringe IV PRN (18:57)
[2019-06-14] MEDS ORDERED: Polyethylene Glycol 3350 Powder 17 GM Packet PO PRN (18:57)
[2019-06-14] MEDS ORDERED: Sodium Chloride 0.9% 10 ML Syringe FLUSH PRN (18:57)
[2019-06-14] MEDS ORDERED: Acetaminophen 325 MG Tab PO PRN (18:57)
[2019-06-14] MEDS: Ondansetron 4 MG Tab.DIS PO PRN (19:46)
[2019-06-14] MEDS: oxyCODONE 5 MG Tab PO PRN (19:47)
[2019-06-14] MEDS: Insulin Lispro 100 Unit/ML 3 ML KwikPen SUBCUT SCH (19:51)
[2019-06-14] MEDS ORDERED: LORazepam 2 MG/ML SDV IV SCH (20:30)
[2019-06-14] MEDS: Metoprolol Tartrate 50 MG Tab PO SCH (20:30)
[2019-06-14] MEDS ORDERED: Insulin Glargine,Human Rec. Analog 100 Units/ML 3 ML Pen SUBCUT SCH (21:00)
[2019-06-14] MEDS: Formoterol/Mometasone 100-5 MCG 8.8 GM Inhaler IH SCH (21:09)
[2019-06-14] MEDS: Sodium Chloride 0.9% 1,000 ML IV SCH (23:14)
[2019-06-15] MEDS: Sodium Chloride 0.9% 1,000 ML IV SCH (07:09)
[2019-06-15] MEDS ORDERED: Pantoprazole 40 MG Tab.CR PO SCH (07:30)
[2019-06-15] MEDS ORDERED: metFORMIN 500 MG Tab PO SCH (08:00)
[2019-06-15] MEDS ORDERED: Insulin Lispro 100 Unit/ML 3 ML KwikPen SUBCUT SCH (08:00)
[2019-06-15] MEDS: Formoterol/Mometasone 100-5 MCG 8.8 GM Inhaler IH SCH (08:41)
[2019-06-15] MEDS: Ondansetron 4 MG Tab.DIS PO PRN (08:48)
[2019-06-15] MEDS: LORazepam 1 MG Tab PO SCH ×2 (08:56→13:05)
[2019-06-15] MEDS: Insulin Lispro 100 Unit/ML 3 ML KwikPen SUBCUT SCH ×4 (08:58→13:28)
[2019-06-15] MEDS ORDERED: Folic Acid 1 MG Tab PO SCH (09:00)
[2019-06-15] MEDS ORDERED: atorvaSTATin 20 MG Tab PO SCH (09:00)
[2019-06-15] MEDS ORDERED: Cyanocobalamin (Vitamin B12) 1,000 MCG Tab PO SCH (09:00)
[2019-06-15] MEDS ORDERED: Lisinopril 10 MG Tab PO SCH (09:00)
[2019-06-15] MEDS: Potassium Chloride 20 MEQ Tab.ER PO ONE ×2 (09:01→14:36)
[2019-06-15] MEDS: Metoprolol Tartrate 50 MG Tab PO SCH (09:02)
--- NOTE | 2019-06-15 10:29 | PCM.DCSUM1 ---
Discharge Summary - Hospital Course Brief History: Mr. Lemons is a 59-year-old gentleman who was admitted to observation status through the emergency department with a supratherapeutic INR and acute kidney injury secondary to dehydration. - Discharge Data Discharge Date: 06/15/19 Discharge Disposition: DC/Tfer to Other 70 Condition: Fair - Referral to Home Health Primary Care Physician: PCP None - Discharge Diagnosis/Problem(s) (1) ANY (acute kidney injury) SNOMED Code(s): 38100151, 15660483 ICD Code: N17.9 - ACUTE KIDNEY FAILURE, UNSPECIFIED Status: Acute Current Visit: Yes (2) History of Coumadin therapy SNOMED Code(s): 886756149 ICD Code: Z92.29 - PERSONAL HISTORY OF OTHER DRUG THERAPY Status: Acute Current Visit: No (3) Alcohol intoxication SNOMED Code(s): 96498869 ICD Code: F10.929 - ALCOHOL USE, UNSPECIFIED WITH INTOXICATION, UNSPECIFIED Status: Acute Current Visit: No Qualifiers: Complication of substance-induced condition: with unspecified complication Qualified Code(s): F10.929 - Alcohol use, unspecified with intoxication, unspecified (4) Alcoholism /alcohol abuse SNOMED Code(s): 4080404 ICD Code: F10.20 - ALCOHOL DEPENDENCE, UNCOMPLICATED Status: Acute Current Visit: No (5) Diabetes mellitus type 2 SNOMED Code(s): 26232364 ICD Code: E11.9 - TYPE 2 DIABETES MELLITUS WITHOUT COMPLICATIONS Status: Chronic Priority: Medium Current Visit: No - Patient Summary/Data Hospital Course: Mr. Lemons is a 59-year-old gentleman who was admitted through the emergency department observation status for further monitoring of acute kidney injury and supratherapeutic INR. He has a known and longstanding history of chronic alcohol abuse, he apparently fell earlier today and was brought into the emergency department for further evaluation. Alcohol level on admission was significantly elevated, he did not recall the specific events of his fall or injuries. CT scan of the head and neck were obtained showing no acute injuries. Laboratory studies show marked elevation in his INR at greater than 100 as well as evidence of an acute kidney injury, with creatinine up to twice his normal range. He is fairly lethargic and still intoxicated, unable to provide a meaningful history concerning recent symptoms and events or review of systems. He was given IV vitamin K 5 mg in the emergency department and after admission IV fluids for hydration. By the following morning his INR was in therapeutic range at 2.0 and his renal function had returned to baseline. Was showing evidence of mild alcohol withdrawal and will be discharged to detox facility. Activity will be as tolerated and he will resume his usual diabetic diet. Glucose levels were monitored throughout his hospital stay and he was treated with his usual dose of long and short acting insulin. Follow-up appointment will be scheduled with his primary care provider within 1 week. Follow-up appointment in the Coumadin clinic will be scheduled for June 19. - Patient Instructions Diet: Diabetic Diet Activity: As Tolerated Other/Special Instructions: DC to detox. FU appointment with primary care provider within 1 week. Follow-up appointment in the Coumadin clinic for WednesdayJune 18. - Discharge Plan *PRESCRIPTION DRUG MONITORING PROGRAM REVIEWED*: Not Applicable *COPY OF PRESCRIPTION DRUG MONITORING REPORT IN PATIENT CAIT: Not Applicable Home Medications: Home Meds Insulin Aspart [NovoLOG] 20 units SQ TIDAC 02/22/13 [History] Insulin Detemir [Levemir] 50 units SQ BEDTIME 02/22/13 [History] Metoprolol Tartrate 50 mg PO BID 02/22/13 [History] Montelukast [Singulair] 10 mg PO BEDTIME 02/22/13 [History] Omeprazole 40 mg PO DAILY 02/22/13 [History] Warfarin [Coumadin] 4 mg PO DAILY 11/17/15 [History] atorvaSTATin [Lipitor] 80 mg PO DAILY 05/28/17 [History] metFORMIN [Glucophage] 1,000 mg PO BIDMEALS 05/28/17 [History] Cyanocobalamin (Vitamin B-12) [B-12] 1 tab PO DAILY 02/24/18 [History] Lisinopril 10 mg PO DAILY 02/24/18 [History] Loratadine 1 tab PO ASDIRECTED 02/24/18 [History] Albuterol Sulfate [Albuterol Sulfate Hfa] 1 - 2 puff IH Q4H 08/26/18 [History] Ondansetron [Ondansetron ODT] 1 tab PO Q8H PRN 08/26/18 [History] Albuterol [Proventil Neb Soln] 1 dose INH ASDIRECTED 09/11/18 [History] Alum Hydrox/Mag Hydrox/Simeth [Maalox Advanced] 15 ml PO Q4H PRN 09/11/18 [ History] Folic Acid 1 mg PO DAILY 01/13/19 [History] Formoterol/Mometasone [Dulera 100 MCG/5 MCG] 2 puff IH BID 01/13/19 [History] - Discharge Summary/Plan Comment DC Time >30 min.: No - Patient Data Vitals - Most Recent: Last Vital Signs Temp 98 F 06/15/19 08:00 Pulse 85 06/15/19 09:02 Resp 16 06/15/19 08:00 BP 170/98 H 06/15/19 09:02 Pulse Ox 95 06/15/19 08:00 Weight - Most Recent: 237 lb 8 oz I&O - Last 24 hours: Intake & Output 06/14/19 06/15/19 06/15/19 22:59 06:59 14:59 Intake Total 2340 Output Total 650 200 Balance 1690 -200 Lab Results - Last 24 hrs: Laboratory Results - last 24 hr 06/14/19 06/14/19 06/14/19 Range/Units 10:48 10:52 10:52 WBC 5.2 (4.5-11.0) K/uL RBC 4.72 (4.30-5.90) M/uL Hgb 12.3 (12.0-15.0) g/dL Hct 38.4 L (40.0-54.0) % MCV 81 (80-98) fL MCH 26 L (27-31) pg MCHC 32 (32-36) % Plt Count 262 (150-400) K/uL Neut % (Auto) 59 (36-66) % Lymph % (Auto) 35 (24-44) % Dale % (Auto) 5 (2-6) % Eos % (Auto) 1 L (2-4) % Baso % (Auto) 1 (0-1) % PT (9.5-12.0) sec INR (0.80-1.20) Sodium 139 L (140-148) mmol/L Potassium 4.2 (3.6-5.2) mmol/L Chloride 101 (100-108) mmol/L Carbon Dioxide 25 (21-32) mmol/L Anion Gap 17.2 H (5.0-14.0) mmol/L BUN 19 H (7-18) mg/dL Creatinine 2.2 H D (0.8-1.3) mg/dL Est Cr Clr Drug Dosing TNP Estimated GFR (MDRD) 31 L (>60) Glucose 159 H (74-106) mg/dL Calcium 7.9 L (8.5-10.1) mg/dL Total Bilirubin 0.3 (0.2-1.0) mg/dL AST 61 H D (15-37) U/L ALT 35 (12-78) U/L Alkaline Phosphatase 112 (46-116) U/L Troponin I < 0.017 (0.000-0.056) ng/mL Total Protein 7.0 (6.4-8.2) g/dL Albumin 3.0 L (3.4-5.0) g/dL Globulin 4.0 H (2.3-3.5) g/dL Albumin/Globulin Ratio 0.8 L (1.2-2.2) Lipase (73-393) U/L Urine Color (YELLOW) Urine Appearance (CLEAR) Urine pH (5.0-8.0) Ur Specific Adams (1.008-1.030) Urine Protein (NEGATIVE) mg/dL Urine Glucose (UA) (NEGATIVE) mg/dL Urine Ketones (NEGATIVE) mg/dL Urine Occult Blood (NEGATIVE) Urine Nitrite (NEGATIVE) Urine Bilirubin (NEGATIVE) Urine Urobilinogen (0.2-1.0) EU/dL Ur Leukocyte Esterase (NEGATIVE) Urine RBC (0-5) Urine WBC (0-5) Ur Epithelial Cells Amorphous Sediment Urine Bacteria Urine Mucus Urine Opiates Screen (NEGATIVE) Ur Oxycodone Screen (NEGATIVE) Urine Methadone Screen (NEGATIVE) Ur Propoxyphene Screen (NEGATIVE) Ur Barbiturates Screen (NEGATIVE) Ur Tricyclics Screen (NEGATIVE) Ur Phencyclidine Scrn (NEGATIVE) Ur Amphetamine Screen (NEGATIVE) U Methamphetamines Scrn (NEGATIVE) Urine MDMA Screen (NEGATIVE) U Benzodiazepines Scrn (NEGATIVE) U Cocaine Metab Screen (NEGATIVE) U Marijuana (THC) Screen (NEGATIVE) Ethyl Alcohol mg/dL 06/14/19 06/14/19 06/14/19 Range/Units 10:52 13:40 13:41 WBC (4.5-11.0) K/uL RBC (4.30-5.90) M/uL Hgb (12.0-15.0) g/dL Hct (40.0-54.0) % MCV (80-98) fL MCH (27-31) pg MCHC (32-36) % Plt Count (150-400) K/uL Neut % (Auto) (36-66) % Lymph % (Auto) (24-44) % Dale % (Auto) (2-6) % Eos % (Auto) (2-4) % Baso % (Auto) (0-1) % PT > 100.0 H (9.5-12.0) sec INR (0.80-1.20) Sodium (140-148) mmol/L Potassium (3.6-5.2) mmol/L Chloride (100-108) mmol/L Carbon Dioxide (21-32) mmol/L Anion Gap (5.0-14.0) mmol/L BUN (7-18) mg/dL Creatinine (0.8-1.3) mg/dL Est Cr Clr Drug Dosing Estimated GFR (MDRD) (>60) Glucose (74-106) mg/dL Calcium (8.5-10.1) mg/dL Total Bilirubin (0.2-1.0) mg/dL AST (15-37) U/L ALT (12-78) U/L Alkaline Phosphatase (46-116) U/L Troponin I (0.000-0.056) ng/mL Total Protein (6.4-8.2) g/dL Albumin (3.4-5.0) g/dL Globulin (2.3-3.5) g/dL Albumin/Globulin Ratio (1.2-2.2) Lipase 106 (73-393) U/L Urine Color (YELLOW) Urine Appearance (CLEAR) Urine pH (5.0-8.0) Ur Specific Adams (1.008-1.030) Urine Protein (NEGATIVE) mg/dL Urine Glucose (UA) (NEGATIVE) mg/dL Urine Ketones (NEGATIVE) mg/dL Urine Occult Blood (NEGATIVE) Urine Nitrite (NEGATIVE) Urine Bilirubin (NEGATIVE) Urine Urobilinogen (0.2-1.0) EU/dL Ur Leukocyte Esterase (NEGATIVE) Urine RBC (0-5) Urine WBC (0-5) Ur Epithelial Cells Amorphous Sediment Urine Bacteria Urine Mucus Urine Opiates Screen (NEGATIVE) Ur Oxycodone Screen (NEGATIVE) Urine Methadone Screen (NEGATIVE) Ur Propoxyphene Screen (NEGATIVE) Ur Barbiturates Screen (NEGATIVE) Ur Tricyclics Screen (NEGATIVE) Ur Phencyclidine Scrn (NEGATIVE) Ur Amphetamine Screen (NEGATIVE) U Methamphetamines Scrn (NEGATIVE) Urine MDMA Screen (NEGATIVE) U Benzodiazepines Scrn (NEGATIVE) U Cocaine Metab Screen (NEGATIVE) U Marijuana (THC) Screen (NEGATIVE) Ethyl Alcohol 339 mg/dL 06/14/19 06/14/19 06/14/19 Range/Units 15:29 15:33 21:35 WBC (4.5-11.0) K/uL RBC (4.30-5.90) M/uL Hgb (12.0-15.0) g/dL Hct (40.0-54.0) % MCV (80-98) fL MCH (27-31) pg MCHC (32-36) % Plt Count (150-400) K/uL Neut % (Auto) (36-66) % Lymph % (Auto) (24-44) % Dale % (Auto) (2-6) % Eos % (Auto) (2-4) % Baso % (Auto) (0-1) % PT (9.5-12.0) sec INR (0.80-1.20) Sodium (140-148) mmol/L Potassium (3.6-5.2) mmol/L Chloride (100-108) mmol/L Carbon Dioxide (21-32) mmol/L Anion Gap (5.0-14.0) mmol/L BUN (7-18) mg/dL Creatinine (0.8-1.3) mg/dL Est Cr Clr Drug Dosing Estimated GFR (MDRD) (>60) Glucose (74-106) mg/dL Calcium (8.5-10.1) mg/dL Total Bilirubin (0.2-1.0) mg/dL AST (15-37) U/L ALT (12-78) U/L Alkaline Phosphatase (46-116) U/L Troponin I < 0.017 (0.000-0.056) ng/mL Total Protein (6.4-8.2) g/dL Albumin (3.4-5.0) g/dL Globulin (2.3-3.5) g/dL Albumin/Globulin Ratio (1.2-2.2) Lipase (73-393) U/L Urine Color Yellow (YELLOW) Urine Appearance Cloudy A (CLEAR) Urine pH 5.5 (5.0-8.0) Ur Specific Adams 1.025 (1.008-1.030) Urine Protein >=300 H (NEGATIVE) mg/dL Urine Glucose (UA) 100 H (NEGATIVE) mg/dL Urine Ketones Negative (NEGATIVE) mg/dL Urine Occult Blood Moderate H (NEGATIVE) Urine Nitrite Negative (NEGATIVE) Urine Bilirubin Negative (NEGATIVE) Urine Urobilinogen 0.2 (0.2-1.0) EU/dL Ur Leukocyte Esterase Negative (NEGATIVE) Urine RBC 0-5 (0-5) Urine WBC 0-5 (0-5) Ur Epithelial Cells Few Amorphous Sediment Not seen Urine Bacteria Rare Urine Mucus Not seen Urine Opiates Screen Negative (NEGATIVE) Ur Oxycodone Screen Negative (NEGATIVE) Urine Methadone Screen Negative (NEGATIVE) Ur Propoxyphene Screen Negative (NEGATIVE) Ur Barbiturates Screen Negative (NEGATIVE) Ur Tricyclics Screen Negative (NEGATIVE) Ur Phencyclidine Scrn Negative (NEGATIVE) Ur Amphetamine Screen Negative (NEGATIVE) U Methamphetamines Scrn Negative (NEGATIVE) Urine MDMA Screen Negative (NEGATIVE) U Benzodiazepines Scrn Presumptive positive H (NEGATIVE) U Cocaine Metab Screen Negative (NEGATIVE) U Marijuana (THC) Screen Negative (NEGATIVE) Ethyl Alcohol mg/dL 06/15/19 06/15/19 06/15/19 Range/Units 05:30 05:30 05:30 WBC (4.5-11.0) K/uL RBC (4.30-5.90) M/uL Hgb (12.0-15.0) g/dL Hct (40.0-54.0) % MCV (80-98) fL MCH (27-31) pg MCHC (32-36) % Plt Count (150-400) K/uL Neut % (Auto) (36-66) % Lymph % (Auto) (24-44) % Dale % (Auto) (2-6) % Eos % (Auto) (2-4) % Baso % (Auto) (0-1) % PT 20.8 H (9.5-12.0) sec INR 2.00 H D (0.80-1.20) Sodium 137 L (140-148) mmol/L Potassium 3.5 L (3.6-5.2) mmol/L Chloride 105 (100-108) mmol/L Carbon Dioxide 24 (21-32) mmol/L Anion Gap 11.5 (5.0-14.0) mmol/L BUN 15 (7-18) mg/dL Creatinine 1.1 (0.8-1.3) mg/dL Est Cr Clr Drug Dosing 73.74 Estimated GFR (MDRD) > 60 (>60) Glucose 102 (74-106) mg/dL Calcium 7.1 L (8.5-10.1) mg/dL Total Bilirubin (0.2-1.0) mg/dL AST (15-37) U/L ALT (12-78) U/L Alkaline Phosphatase (46-116) U/L Troponin I < 0.017 (0.000-0.056) ng/mL Total Protein (6.4-8.2) g/dL Albumin (3.4-5.0) g/dL Globulin (2.3-3.5) g/dL Albumin/Globulin Ratio (1.2-2.2) Lipase (73-393) U/L Urine Color (YELLOW) Urine Appearance (CLEAR) Urine pH (5.0-8.0) Ur Specific Adams (1.008-1.030) Urine Protein (NEGATIVE) mg/dL Urine Glucose (UA) (NEGATIVE) mg/dL Urine Ketones (NEGATIVE) mg/dL Urine Occult Blood (NEGATIVE) Urine Nitrite (NEGATIVE) Urine Bilirubin (NEGATIVE) Urine Urobilinogen (0.2-1.0) EU/dL Ur Leukocyte Esterase (NEGATIVE) Urine RBC (0-5) Urine WBC (0-5) Ur Epithelial Cells Amorphous Sediment Urine Bacteria Urine Mucus Urine Opiates Screen (NEGATIVE) Ur Oxycodone Screen (NEGATIVE) Urine Methadone Screen (NEGATIVE) Ur Propoxyphene Screen (NEGATIVE) Ur Barbiturates Screen (NEGATIVE) Ur Tricyclics Screen (NEGATIVE) Ur Phencyclidine Scrn (NEGATIVE) Ur Amphetamine Screen (NEGATIVE) U Methamphetamines Scrn (NEGATIVE) Urine MDMA Screen (NEGATIVE) U Benzodiazepines Scrn (NEGATIVE) U Cocaine Metab Screen (NEGATIVE) U Marijuana (THC) Screen (NEGATIVE) Ethyl Alcohol mg/dL Med Orders - Current: Current Medications Acetaminophen (Tylenol) 650 mg PO Q4H PRN PRN Reason: Pain (Mild 1-3)/fever Last Admin: 06/14/19 19:47 Dose: 650 mg Atorvastatin Calcium (Lipitor) 80 mg PO DAILY [facility] Cyanocobalamin (Vitamin B12) 1,000 mcg PO DAILY [facility] Last Admin: 06/15/19 09:00 Dose: 1,000 mcg Dextrose (Glutose 15) 15 gm PO ONETIME PRN PRN Reason: Hypoglycemia Dextrose/Water (Dextrose 50% In Water) 50 ml IV ONETIME PRN PRN Reason: Hypoglycemia Folic Acid (Folic Acid) 1 mg PO DAILY [facility] Last Admin: 06/15/19 09:01 Dose: 1 mg Sodium Chloride (Normal Saline) 1,000 mls @ 125 mls/hr IV ASDIRECTED [facility] Last Admin: 06/15/19 07:09 Dose: 125 mls/hr Insulin Glargine (Lantus Solostar) 50 units SUBCUT BEDTIME [facility] Last Admin: 06/14/19 20:24 Dose: 50 units Insulin Human Lispro (Humalog) 0 unit SUBCUT QIDACANDBED [facility]; Protocol Last Admin: 06/15/19 08:58 Dose: Not Given Insulin Human Lispro (Humalog) 20 unit SUBCUT TIDMEALS [facility] Lisinopril (Prinivil) 10 mg PO DAILY [facility] Last Admin: 06/15/19 09:00 Dose: 10 mg Lorazepam (Ativan) 0 mg IV ASDIRECTED [facility]; Protocol Last Admin: 06/14/19 20:53 Dose: 2 mg Lorazepam (Ativan) 0 mg PO ASDIRECTED [facility]; Protocol Last Admin: 06/15/19 08:56 Dose: 2 mg Metformin HCl (Glucophage) 1,000 mg PO BIDMEALS [facility] Metoprolol Tartrate (Lopressor) 50 mg PO BID [facility] Last Admin: 06/15/19 09:02 Dose: 50 mg Mometasone Furoate/Formoterol Fumar (Dulera 100-5 Mcg) 2 puff IH BID [facility] Last Admin: 06/15/19 08:41 Dose: 2 puff Ondansetron HCl (Zofran Odt) 4 mg PO Q6H PRN PRN Reason: Nausea able to take PO Last Admin: 06/15/19 08:48 Dose: 4 mg Oxycodone HCl (Oxycodone) 5 mg PO Q4H PRN PRN Reason: Pain (moderate 4-6) Last Admin: 06/14/19 19:47 Dose: 5 mg Pantoprazole Sodium (Protonix) 40 mg PO ACBREAKFAST [facility] Last Admin: 06/15/19 09:01 Dose: 40 mg Polyethylene Glycol (Miralax) 17 gm PO DAILY PRN PRN Reason: Constipation Sodium Chloride (Saline Flush) 10 ml FLUSH ASDIRECTED PRN PRN Reason: Keep Vein Open Warfarin Sodium (Coumadin) 4 mg PO DAILY@1300 [facility] Discontinued Medications Bacitracin (Bacitracin Oint 1 Gm) 1 dose TOP ONETIME ONE Stop: 06/14/19 16:52 Last Admin: 06/14/19 16:58 Dose: 1 dose Hydromorphone HCl (Dilaudid) 0.5 mg IVPUSH ONETIME ONE Stop: 06/14/19 13:05 Last Admin: 06/14/19 13:26 Dose: 0.5 mg Sodium Chloride (Normal Saline) 1,000 mls @ 999 mls/hr IV ASDIRECTED [facility] Last Admin: 06/14/19 14:30 Dose: 999 mls/hr Sodium Chloride (Normal Saline) 1,000 mls @ 999 mls/hr IV ASDIRECTED [facility] Last Admin: 06/14/19 13:24 Dose: 999 mls/hr Phytonadione 5 mg/ Sodium (Chloride) 50.5 mls @ 100 mls/hr IV NOW ONE Stop: 06/14/19 14:43 Last Admin: 06/14/19 14:33 Dose: 100 mls/hr Insulin Human Lispro (Humalog) 20 unit SUBCUT TIDMEALS [facility] Lorazepam (Ativan) 1 mg IVPUSH ONETIME ONE Stop: 06/14/19 14:48 Last Admin: 06/14/19 15:21 Dose: 1 mg Ondansetron HCl (Zofran) 4 mg IVPUSH ONETIME ONE Stop: 06/14/19 13:45 Last Admin: 06/14/19 14:31 Dose: 4 mg Potassium Chloride (Klor-Con M20) 40 meq PO ONETIME ONE Stop: 06/15/19 08:01 Last Admin: 06/15/19 09:01 Dose: 40 meq - Exam General: Reports: Alert, Oriented, Cooperative, No Acute Distress Lungs: Reports: Clear to Auscultation, Normal Respiratory Effort Cardiovascular: Reports: Regular Rate, Regular Rhythm, No Murmurs GI/Abdominal Exam: Soft, Non-Tender, No Organomegaly, No Distention *Q Meaningful Use (DIS) - VTE *Q VTE Pharmacological Contraindications *Q: High INR Value
[2019-06-15 13:12] VITALS: BP 169/101; PULSE 87
[2019-06-15] MEDS: oxyCODONE 5 MG Tab PO PRN (13:27)
== END 2019-06-15 15:09 | disposition other institution (70) ==
LOC: JP.ED 10:21 → EEVIPCON 17:06 → JP.ICU 17:06 → UNDOADMIN 17:06 → UNDODISIN 06-15 15:08
PROVIDERS: ADMIT Hospitalist; ATTEND Hospitalist
DX: N17.9 Acute kidney failure, unspecified (principal); F10.129 Alcohol abuse with intoxication, unspecified; E11.9 Type 2 diabetes mellitus without complications; I11.0 Hypertensive heart disease with heart failure; I50.9 Heart failure, unspecified; E78.00 Pure hypercholesterolemia, unspecified; J44.9 Chronic obstructive pulmonary disease, unspecified; K21.9 Gastro-esophageal reflux disease without esophagitis; M19.90 Unspecified osteoarthritis, unspecified site; G43.909 Migraine, unspecified, not intractable, without status migrainosus; E66.9 Obesity, unspecified; E86.0 Dehydration; Z79.01 Long term (current) use of anticoagulants; Z88.8 Allergy status to other drugs, medicaments and biological substances; Z88.3 Allergy status to other anti-infective agents; Z79.4 Long term (current) use of insulin; Z79.899 Other long term (current) drug therapy; Z79.84 Long term (current) use of oral hypoglycemic drugs; Z87.891 Personal history of nicotine dependence; Z92.29 Personal history of other drug therapy; Z68.34 Body mass index [BMI] 34.0-34.9, adult
CPT/HCPCS: 36415; 70450; 71045; 72125; 80048; 80053; 80305; 80320; 81001; 82962; 83690; 84484; 85025; 85610; 94640; 96361; 96365; 96375; 99285; A9270; J1170; J1815; J2060; J2405; J3430; J7030; J7050; G0480

== ENCOUNTER 2019-06-23 16:46 | Emergency (ER) | payer MEDICAID ==
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
[2019-06-23] MEDS ORDERED: Ondansetron 4 MG Tab.DIS PO ONE (17:32)
[2019-06-23] MEDS ORDERED: LORazepam 2 MG/ML SDV IM ONE (17:35)
[2019-06-23] MEDS ORDERED: LORazepam 2 MG/ML SDV IVPUSH ONE (18:21)
[2019-06-23] MEDS ORDERED: Acetaminophen 325 MG Tab PO ONE (18:21)
[2019-06-23 18:41] VITALS: BP 139/70; PULSE 118
== END 2019-06-23 18:54 | disposition other institution (70) ==
LOC: JP.ED 16:46
DX: F10.230 Alcohol dependence with withdrawal, uncomplicated (principal); J06.9 Acute upper respiratory infection, unspecified; I11.0 Hypertensive heart disease with heart failure; I50.9 Heart failure, unspecified; I48.91 Unspecified atrial fibrillation; E78.00 Pure hypercholesterolemia, unspecified; J44.9 Chronic obstructive pulmonary disease, unspecified; K21.9 Gastro-esophageal reflux disease without esophagitis; M19.90 Unspecified osteoarthritis, unspecified site; Z86.73 Personal history of transient ischemic attack (TIA), and cerebral infarction without residual deficits; F41.0 Panic disorder [episodic paroxysmal anxiety]; F32.9 Major depressive disorder, single episode, unspecified; E11.42 Type 2 diabetes mellitus with diabetic polyneuropathy; E66.9 Obesity, unspecified; Z68.34 Body mass index [BMI] 34.0-34.9, adult; Z88.8 Allergy status to other drugs, medicaments and biological substances; Z91.048 Other nonmedicinal substance allergy status; Z79.4 Long term (current) use of insulin; Z79.899 Other long term (current) drug therapy
CPT/HCPCS: 36415; 80048; 80305; 80320; 85025; 85610; 87804; 96372; 96374; 99285; A9270; J2060; G0480

== ENCOUNTER 2019-07-26 22:41 | Emergency (ER) | payer MEDICAID ==
[2019-07-26] MEDS ORDERED: Ondansetron 4 MG Tab.DIS PO ONE (22:53)
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
[2019-07-26] MEDS ORDERED: Phytonadione 10 MG in Sodium Chloride 0.9% 50 ML IV ONE (23:55)
[2019-07-27] MEDS ORDERED: Ondansetron 4 MG/2 ML SDV IVPUSH ONE (05:52)
[2019-07-27] MEDS ORDERED: Ondansetron 4 MG Tab.DIS PO ONE (10:32)
[2019-07-27] MEDS ORDERED: metFORMIN 500 MG Tab PO STA (10:33)
[2019-07-27] MEDS ORDERED: Metoprolol Tartrate 50 MG Tab PO ONE (10:34)
[2019-07-27] MEDS ORDERED: Thiamine 100 MG Tab PO ONE (10:35)
[2019-07-27] MEDS ORDERED: Lisinopril 10 MG Tab PO ONE (10:38)
[2019-07-27] MEDS ORDERED: Potassium Chloride 10 MEQ Cap.ER PO ONE (10:50)
[2019-07-27 10:58] VITALS: BP 164/102; PULSE 77
[2019-07-27] MEDS ORDERED: Insulin Regular, Human 100 Units/ML 3 ML Vial SUBCUT ONE (11:05)
[2019-07-27] MEDS ORDERED: LORazepam 1 MG Tab PO ONE (11:22)
== END 2019-07-27 12:35 | disposition other institution (70) ==
LOC: JP.ED 22:41
DX: F10.220 Alcohol dependence with intoxication, uncomplicated (principal); E11.42 Type 2 diabetes mellitus with diabetic polyneuropathy; I11.0 Hypertensive heart disease with heart failure; I50.9 Heart failure, unspecified; J44.9 Chronic obstructive pulmonary disease, unspecified; I48.91 Unspecified atrial fibrillation; K21.9 Gastro-esophageal reflux disease without esophagitis; E78.00 Pure hypercholesterolemia, unspecified; E66.9 Obesity, unspecified; Z88.6 Allergy status to analgesic agent; Z79.4 Long term (current) use of insulin; Z79.01 Long term (current) use of anticoagulants; Z88.8 Allergy status to other drugs, medicaments and biological substances; Z91.048 Other nonmedicinal substance allergy status; Z79.51 Long term (current) use of inhaled steroids; Z79.899 Other long term (current) drug therapy; Z68.34 Body mass index [BMI] 34.0-34.9, adult; Y90.8 Blood alcohol level of 240 mg/100 ml or more
CPT/HCPCS: 36415; 80048; 80307; 85025; 85610; 96365; 96375; 99285; A9270; J2405; J3430; J7050; 99284

== ENCOUNTER 2019-08-15 23:51 | Emergency (ER) | payer MEDICAID ==
[2019-08-16] MEDS ORDERED: Aspirin 81 MG Tab.Chew PO ONE (00:34)
[2019-08-16] MEDS ORDERED: Albuterol/Ipratropium 3.0-0.5 MG/3 ML Neb Soln NEB ONE (00:37)
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
[2019-08-16 01:45] VITALS: BP 107/70; PULSE 98
--- NOTE | 2019-08-16 10:58 | CR ---
CHEST: Portable 08/16/2019 at 12:46 AM CLINICAL HISTORY:Chest pain COMPARISON:06/14/2019 FINDINGS: Heart size and pulmonary vascularity are normal. Patient has had previous sternotomy. No infiltrate, effusion or pneumothorax is seen. Impression: No acute cardiopulmonary process.
== END 2019-08-16 02:45 ==
LOC: JP.ED 23:51
DX: F10.129 Alcohol abuse with intoxication, unspecified (principal); Y90.7 Blood alcohol level of 200-239 mg/100 ml; I48.91 Unspecified atrial fibrillation; I50.9 Heart failure, unspecified; I11.0 Hypertensive heart disease with heart failure; E78.00 Pure hypercholesterolemia, unspecified; J44.9 Chronic obstructive pulmonary disease, unspecified; K21.9 Gastro-esophageal reflux disease without esophagitis; E11.9 Type 2 diabetes mellitus without complications; E66.9 Obesity, unspecified; Z88.8 Allergy status to other drugs, medicaments and biological substances; Z91.048 Other nonmedicinal substance allergy status; Z79.4 Long term (current) use of insulin; Z79.01 Long term (current) use of anticoagulants; Z79.899 Other long term (current) drug therapy; Z68.31 Body mass index [BMI] 31.0-31.9, adult
CPT/HCPCS: 36415; 71045; 71045-26; 80053; 80307; 83605; 83880; 84484; 85025; 85610; 93005; 93010; 94640; 99284; 99285-25; J7620-GY

== ENCOUNTER 2019-09-09 04:56 | Emergency (ER) | payer MEDICAID ==
[2019-09-09] MEDS ORDERED: LORazepam 2 MG/ML SDV IVPUSH ONE (05:51)
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
[2019-09-09] MEDS ORDERED: Phytonadione 5 MG in Sodium Chloride 0.9% 50 ML IV ONE (06:17)
[2019-09-09 06:43] VITALS: BP 101/76; PULSE 101
[2019-09-09] MEDS ORDERED: MVI, Adult with Vitamin K 10 ML, Thiamine 100 MG, Folic Acid 1 MG, Magnesium Sulfate 3 ... IV SCH ×5 (06:45)
[2019-09-09] MEDS ORDERED: MVI, Adult with Vitamin K 10 ML, Thiamine 100 MG, Folic Acid 1 MG, Magnesium Sulfate 3 ... IV ONE ×5 (07:30)
== END 2019-09-09 11:48 ==
LOC: JP.ED 04:56
DX: F10.129 Alcohol abuse with intoxication, unspecified (principal); I11.0 Hypertensive heart disease with heart failure; I50.9 Heart failure, unspecified; I48.91 Unspecified atrial fibrillation; E78.00 Pure hypercholesterolemia, unspecified; J44.9 Chronic obstructive pulmonary disease, unspecified; K21.9 Gastro-esophageal reflux disease without esophagitis; M19.90 Unspecified osteoarthritis, unspecified site; Z86.73 Personal history of transient ischemic attack (TIA), and cerebral infarction without residual deficits; F41.9 Anxiety disorder, unspecified; F32.9 Major depressive disorder, single episode, unspecified; E11.42 Type 2 diabetes mellitus with diabetic polyneuropathy; E66.9 Obesity, unspecified; Z68.33 Body mass index [BMI] 33.0-33.9, adult; Z88.8 Allergy status to other drugs, medicaments and biological substances; Z91.048 Other nonmedicinal substance allergy status; Z79.4 Long term (current) use of insulin; Z79.899 Other long term (current) drug therapy; Z79.01 Long term (current) use of anticoagulants
CPT/HCPCS: 36415; 80307; 85610; 96365; 96366; 96367; 96375; 99284; 99285; J2060; J3411; J3430; J3475; J7030; J7050; J3490

== ENCOUNTER 2019-11-28 10:48 | Observation (INO) | payer MEDICAID ==
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
[2019-11-28] MEDS ORDERED: Prochlorperazine 10 MG/2 ML SDV IM ONE (11:35)
[2019-11-28] MEDS ORDERED: Phytonadione 5 MG in Sodium Chloride 0.9% 50 ML IV ONE (11:40)
[2019-11-28] MEDS ORDERED: Prochlorperazine 10 MG in Sodium Chloride 0.9% 50 ML IV ONE (11:44)
--- NOTE | 2019-11-28 12:19 | CT ---
Cervical Spine wo Cont CLINICAL HISTORY: Pain after trauma TECHNIQUE: Multiple CT sections were taken through the cervical spine in the transaxial projection. Coronal and sagittal views were reconstructed. Images were viewed at bone as well as soft tissue windows on a digital workstation. Auto dosage reduction and iterative reconstruction techniques employed. FINDINGS: Sagittal images show previous anterior fixation at C5-6. Alignment is maintained. Vertebral body heights are maintained. There is some spurring at the C1-2 articulation. Pedicles are intact. Apophyseal joints maintained alignment. There is some mild osteoarthritic change. The prevertebral soft tissues are unremarkable. There are a few scattered small nonspecific lymph nodes in the neck IMPRESSION: Previous anterior fixation at C5-6 No fracture or dislocation. Mild degenerative spondylosis
--- NOTE | 2019-11-28 13:45 | CR ---
CHEST: 2 view CLINICAL HISTORY:Chest pain COMPARISON:August 25, 2019 FINDINGS: Patient has had previous sternotomy for aortic valve replacement. The heart size, pulmonary vascularity and hilar structures are normal. No infiltrate effusion or pneumothorax is seen. IMPRESSION: No acute cardiopulmonary process.
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
[2019-11-28] MEDS ORDERED: Albuterol 8 GM Inhaler INH PRN (16:08)
[2019-11-28] MEDS ORDERED: Acetaminophen 325 MG Tab PO PRN (16:08)
[2019-11-28] MEDS ORDERED: Glucose Gel 15 GM in 37.5 GM Tube PO PRN (16:08)
[2019-11-28] MEDS ORDERED: Albuterol 0.083% 2.5 MG/3 ML Neb Soln NEB PRN (16:08)
[2019-11-28] MEDS ORDERED: Polyethylene Glycol 3350 Powder 17 GM Packet PO PRN (16:08)
[2019-11-28] MEDS ORDERED: 50% Dextrose in Water 50 ML Syringe IV PRN (16:08)
[2019-11-28] MEDS ORDERED: Sodium Chloride 0.9% 10 ML Syringe FLUSH PRN (16:08)
[2019-11-28] MEDS: Ondansetron 4 MG/2 ML SDV IV PRN (17:35)
[2019-11-28] MEDS: LORazepam 1 MG Tab PO SCH ×2 (17:35→19:50)
[2019-11-28] MEDS: hydrOXYzine HCl 25 MG Tab PO SCH ×2 (17:35→21:26)
[2019-11-28] MEDS: Insulin Lispro 100 Unit/ML 3 ML KwikPen SUBCUT SCH ×3 (17:38→21:24)
[2019-11-28] MEDS: metFORMIN 500 MG Tab PO SCH (17:47)
[2019-11-28] MEDS: Sodium Chloride 0.9% 1,000 ML IV SCH (17:48)
[2019-11-28] MEDS ORDERED: Montelukast 10 MG Tab PO SCH (21:00)
[2019-11-28] MEDS ORDERED: Insulin Glargine,Human Rec. Analog 100 Units/ML 3 ML Pen SUBCUT SCH (21:00)
[2019-11-28] MEDS: Fluticasone-Salmeterol 55-14 MCG Powder Inhalent INH SCH (21:24)
[2019-11-28] MEDS: Metoprolol Tartrate 50 MG Tab PO SCH (21:27)
[2019-11-29] MEDS: Sodium Chloride 0.9% 1,000 ML IV SCH ×2 (00:54→09:17)
[2019-11-29] MEDS: Insulin Lispro 100 Unit/ML 3 ML KwikPen SUBCUT SCH ×4 (07:30→12:12)
[2019-11-29] MEDS ORDERED: Pantoprazole 40 MG Tab.CR PO SCH (07:30)
[2019-11-29] MEDS: hydrOXYzine HCl 25 MG Tab PO SCH ×2 (08:05→09:06)
[2019-11-29] MEDS: Metoprolol Tartrate 50 MG Tab PO SCH (08:06)
[2019-11-29] MEDS: metFORMIN 500 MG Tab PO SCH (08:06)
[2019-11-29] MEDS: Fluticasone-Salmeterol 55-14 MCG Powder Inhalent INH SCH (08:07)
[2019-11-29 08:10] VITALS: BP 132/75; PULSE 81
[2019-11-29] MEDS ORDERED: Lisinopril 10 MG Tab PO SCH (09:00)
[2019-11-29] MEDS ORDERED: atorvaSTATin 20 MG Tab PO SCH (09:00)
--- NOTE | 2019-11-29 10:24 | PCM.DCSUM1 ---
Discharge Summary - Hospital Course Brief History: Mr. Lemons is a 59-year-old gentleman who was admitted to observation status through the emergency department because of significant elevation in INR and alcohol withdrawal. - Discharge Data Discharge Date: 11/29/19 Discharge Disposition: Home, Self-Care 01 Condition: Stable - Referral to Home Health Primary Care Physician: PCP None - Discharge Diagnosis/Problem(s) (1) Coumadin toxicity SNOMED Code(s): 81376071 ICD Code: T45.511A - POISONING BY ANTICOAGULANTS, ACCIDENTAL, INIT Status: Acute Current Visit: Yes Qualifiers: Encounter type: initial encounter Injury intent: accidental or unintentional Qualified Code(s): T45.511A - Poisoning by anticoagulants, accidental (unintentional), initial encounter (2) Type 2 diabetes mellitus SNOMED Code(s): 51239764 ICD Code: E11.9 - TYPE 2 DIABETES MELLITUS WITHOUT COMPLICATIONS Status: Chronic Current Visit: No Qualifiers: Diabetes mellitus detention insulin use: with rn long term care use Diabetes melli tus complication status: without complication Qualified Code(s): E11.9 - Type 2 diabetes mellitus without complications; Z79.4 - residential (current) use of insulin (3) Alcoholism /alcohol abuse SNOMED Code(s): 6837199 ICD Code: F10.20 - ALCOHOL DEPENDENCE, UNCOMPLICATED Status: Chronic Current Visit: No - Patient Summary/Data Hospital Course: Mr. Lemons is a 59-year-old gentleman who was admitted to observation status through the emergency department for management of elevated INR secondary to warfarin and recent alcohol use. He has a longstanding history of alcohol abuse with episodes of binge drinking. He started drinking 5 days ago and presented to the emergency department today, for medical clearance and detox. On evaluation his INR was noted to be significantly elevated at 5.7. Detox center was unwilling to accept him until this had been corrected. He was given IV fluids for hydration and started on alcohol withdrawal protocol. He did have some mild symptoms during hospitalization and did receive treatment. Blood sugars were monitored and he was continued on his usual dose of insulin. By the following morning INR was found to be subtherapeutic after having received vitamin K in the emergency department. He will be started back on his usual medications including warfarin. Activity will be as tolerated and he will resume his usual diabetic diet. He will be discharged to [facility]. - Patient Instructions Diet: Diabetic Diet Activity: As Tolerated Other/Special Instructions: Discharged to [facility] - Discharge Plan *PRESCRIPTION DRUG MONITORING PROGRAM REVIEWED*: Not Applicable *COPY OF PRESCRIPTION DRUG MONITORING REPORT IN PATIENT CAIT: Not Applicable Home Medications: Home Meds Insulin Aspart [NovoLOG] 20 units SQ TIDAC 02/22/13 [History] Insulin Detemir [Levemir] 50 units SQ BEDTIME 02/22/13 [History] Metoprolol Tartrate 50 mg PO BID 02/22/13 [History] Montelukast [Singulair] 10 mg PO BEDTIME 02/22/13 [History] Warfarin [Coumadin] 4 mg PO DAILY 11/17/15 [History] atorvaSTATin [Lipitor] 80 mg PO DAILY 05/28/17 [History] metFORMIN [Glucophage] 1,000 mg PO BIDMEALS 05/28/17 [History] Cyanocobalamin (Vitamin B-12) [B-12] 2 tab PO DAILY 02/24/18 [History] Lisinopril 10 mg PO DAILY 02/24/18 [History] Loratadine 1 tab PO DAILY 02/24/18 [History] Ondansetron [Ondansetron ODT] 1 tab PO Q8H PRN 08/26/18 [History] Alum Hydrox/Mag Hydrox/Simeth [Maalox Advanced] 15 ml PO Q4H PRN 09/11/18 [History] Folic Acid 1 mg PO DAILY 01/13/19 [History] Formoterol/Mometasone [Dulera 100 MCG/5 MCG] 2 puff IH BID 01/13/19 [History] Calcium Carbonate/Vitamin D3 [Calcium 600-Vit D3 400 Tablet] 1 tab PO BID 06/23/19 [History] Ferrous Sulfate 325 mg PO BID 06/23/19 [History] Mometasone/Formoterol [Dulera 200 MCG/5 MCG] 2 puff INH BID 06/23/19 [History] Albuterol Sulfate [Albuterol Sulfate Hfa] 2 puff IH Q4H PRN 11/28/19 [History] Magnesium Oxide [Magnesium] 400 mg PO DAILY 11/28/19 [History] Omeprazole 40 mg PO DAILY 11/28/19 [History] hydrOXYzine HCL [Hydroxyzine HCl] 25 mg PO QID 06/23/20 [History] - Discharge Summary/Plan Comment DC Time >30 min.: No - Patient Data Vitals - Most Recent: Last Vital Signs Temp 97.2 F 11/29/19 08:00 Pulse 81 11/29/19 08:06 Resp 14 11/29/19 08:00 BP 132/75 11/29/19 08:06 Pulse Ox 95 11/29/19 08:16 Weight - Most Recent: 240 lb I&O - Last 24 hours: Intake & Output 11/28/19 11/29/19 11/29/19 22:59 06:59 14:59 Intake Total 1483 Balance 1483 Lab Results - Last 24 hrs: Laboratory Results - last 24 hr 11/28/19 11/28/19 11/28/19 Range/Units 11:00 11:00 11:00 WBC 6.6 (4.5-11.0) K/uL RBC 4.25 L (4.30-5.90) M/uL Hgb 11.9 L (12.0-15.0) g/dL Hct 36.0 L (40.0-54.0) % MCV 85 (80-98) fL MCH 28 (27-31) pg MCHC 33 (32-36) % Plt Count 323 (150-400) K/uL PT 56.2 H (9.5-12.0) sec INR 5.75 H* D (0.80-1.20) Sodium (140-148) mmol/L Potassium (3.6-5.2) mmol/L Chloride (100-108) mmol/L Carbon Dioxide (21-32) mmol/L Anion Gap (5.0-14.0) mmol/L BUN (7-18) mg/dL Creatinine (0.8-1.3) mg/dL Est Cr Clr Drug Dosing mL/min Estimated GFR (MDRD) (>60) Glucose (74-106) mg/dL Calcium (8.5-10.1) mg/dL Total Bilirubin (0.2-1.0) mg/dL AST (15-37) U/L ALT (12-78) U/L Alkaline Phosphatase (46-116) U/L Troponin I < 0.017 (0.000-0.056) ng/mL Total Protein (6.4-8.2) g/dL Albumin (3.4-5.0) g/dL Globulin (2.3-3.5) g/dL Albumin/Globulin Ratio (1.2-2.2) Urine Color (YELLOW) Urine Appearance (CLEAR) Urine pH (5.0-8.0) Ur Specific [place] (1.008-1.030) Urine Protein (NEGATIVE) mg/dL Urine Glucose (UA) (NEGATIVE) mg/dL Urine Ketones (NEGATIVE) mg/dL Urine Occult Blood (NEGATIVE) Urine Nitrite (NEGATIVE) Urine Bilirubin (NEGATIVE) Urine Urobilinogen (0.2-1.0) EU/dL Ur Leukocyte Esterase (NEGATIVE) Urine RBC (0-5) Urine WBC (0-5) Ur Epithelial Cells Amorphous Sediment Urine Bacteria Urine Mucus Urine Opiates Screen (NEGATIVE) Ur Oxycodone Screen (NEGATIVE) Urine Methadone Screen (NEGATIVE) Ur Propoxyphene Screen (NEGATIVE) Ur Barbiturates Screen (NEGATIVE) Ur Tricyclics Screen (NEGATIVE) Ur Phencyclidine Scrn (NEGATIVE) Ur Amphetamine Screen (NEGATIVE) U Methamphetamines Scrn (NEGATIVE) Urine MDMA Screen (NEGATIVE) U Benzodiazepines Scrn (NEGATIVE) U Cocaine Metab Screen (NEGATIVE) U Marijuana (THC) Screen (NEGATIVE) Ethyl Alcohol mg/dL 11/28/19 11/28/19 11/28/19 Range/Units 11:00 11:00 11:10 WBC (4.5-11.0) K/uL RBC (4.30-5.90) M/uL Hgb (12.0-15.0) g/dL Hct (40.0-54.0) % MCV (80-98) fL MCH (27-31) pg MCHC (32-36) % Plt Count (150-400) K/uL PT (9.5-12.0) sec INR (0.80-1.20) Sodium 135 L (140-148) mmol/L Potassium 4.8 (3.6-5.2) mmol/L Chloride 101 (100-108) mmol/L Carbon Dioxide 23 (21-32) mmol/L Anion Gap 15.8 H (5.0-14.0) mmol/L BUN 16 D (7-18) mg/dL Creatinine 1.3 (0.8-1.3) mg/dL Est Cr Clr Drug Dosing 64.36 mL/min Estimated GFR (MDRD) 56 L (>60) Glucose 167 H (74-106) mg/dL Calcium 8.1 L (8.5-10.1) mg/dL Total Bilirubin 0.7 D (0.2-1.0) mg/dL AST 42 H (15-37) U/L ALT 37 (12-78) U/L Alkaline Phosphatase 101 (46-116) U/L Troponin I (0.000-0.056) ng/mL Total Protein 7.1 (6.4-8.2) g/dL Albumin 3.2 L (3.4-5.0) g/dL Globulin 3.9 H (2.3-3.5) g/dL Albumin/Globulin Ratio 0.8 L (1.2-2.2) Urine Color Yellow (YELLOW) Urine Appearance Clear (CLEAR) Urine pH 5.5 (5.0-8.0) Ur Specific [place] 1.015 (1.008-1.030) Urine Protein >=300 H (NEGATIVE) mg/dL Urine Glucose (UA) 100 H (NEGATIVE) mg/dL Urine Ketones Negative (NEGATIVE) mg/dL Urine Occult Blood Moderate H (NEGATIVE) Urine Nitrite Negative (NEGATIVE) Urine Bilirubin Negative (NEGATIVE) Urine Urobilinogen 0.2 (0.2-1.0) EU/dL Ur Leukocyte Esterase Negative (NEGATIVE) Urine RBC 0-5 (0-5) Urine WBC 0-5 (0-5) Ur Epithelial Cells Not seen Amorphous Sediment Not seen Urine Bacteria Not seen Urine Mucus Not seen Urine Opiates Screen (NEGATIVE) Ur Oxycodone Screen (NEGATIVE) Urine Methadone Screen (NEGATIVE) Ur Propoxyphene Screen (NEGATIVE) Ur Barbiturates Screen (NEGATIVE) Ur Tricyclics Screen (NEGATIVE) Ur Phencyclidine Scrn (NEGATIVE) Ur Amphetamine Screen (NEGATIVE) U Methamphetamines Scrn (NEGATIVE) Urine MDMA Screen (NEGATIVE) U Benzodiazepines Scrn (NEGATIVE) U Cocaine Metab Screen (NEGATIVE) U Marijuana (THC) Screen (NEGATIVE) Ethyl Alcohol 102 mg/dL 11/28/19 11/29/19 Range/Units 11:10 05:30 WBC (4.5-11.0) K/uL RBC (4.30-5.90) M/uL Hgb (12.0-15.0) g/dL Hct (40.0-54.0) % MCV (80-98) fL MCH (27-31) pg MCHC (32-36) % Plt Count (150-400) K/uL PT 16.0 H (9.5-12.0) sec INR 1.52 H D (0.80-1.20) Sodium (140-148) mmol/L Potassium (3.6-5.2) mmol/L Chloride (100-108) mmol/L Carbon Dioxide (21-32) mmol/L Anion Gap (5.0-14.0) mmol/L BUN (7-18) mg/dL Creatinine (0.8-1.3) mg/dL Est Cr Clr Drug Dosing mL/min Estimated GFR (MDRD) (>60) Glucose (74-106) mg/dL Calcium (8.5-10.1) mg/dL Total Bilirubin (0.2-1.0) mg/dL AST (15-37) U/L ALT (12-78) U/L Alkaline Phosphatase (46-116) U/L Troponin I (0.000-0.056) ng/mL Total Protein (6.4-8.2) g/dL Albumin (3.4-5.0) g/dL Globulin (2.3-3.5) g/dL Albumin/Globulin Ratio (1.2-2.2) Urine Color (YELLOW) Urine Appearance (CLEAR) Urine pH (5.0-8.0) Ur Specific [place] (1.008-1.030) Urine Protein (NEGATIVE) mg/dL Urine Glucose (UA) (NEGATIVE) mg/dL Urine Ketones (NEGATIVE) mg/dL Urine Occult Blood (NEGATIVE) Urine Nitrite (NEGATIVE) Urine Bilirubin (NEGATIVE) Urine Urobilinogen (0.2-1.0) EU/dL Ur Leukocyte Esterase (NEGATIVE) Urine RBC (0-5) Urine WBC (0-5) Ur Epithelial Cells Amorphous Sediment Urine Bacteria Urine Mucus Urine Opiates Screen Negative (NEGATIVE) Ur Oxycodone Screen Negative (NEGATIVE) Urine Methadone Screen Negative (NEGATIVE) Ur Propoxyphene Screen Negative (NEGATIVE) Ur Barbiturates Screen Negative (NEGATIVE) Ur Tricyclics Screen Negative (NEGATIVE) Ur Phencyclidine Scrn Negative (NEGATIVE) Ur Amphetamine Screen Negative (NEGATIVE) U Methamphetamines Scrn Negative (NEGATIVE) Urine MDMA Screen Negative (NEGATIVE) U Benzodiazepines Scrn Negative (NEGATIVE) U Cocaine Metab Screen Negative (NEGATIVE) U Marijuana (THC) Screen Negative (NEGATIVE) Ethyl Alcohol mg/dL Med Orders - Current: Current Medications Acetaminophen (Tylenol) 650 mg PO Q4H PRN PRN Reason: Pain (Mild 1-3)/fever Albuterol (Ventolin Hfa) 0 gm INH Q4H PRN PRN Reason: Dyspnea Albuterol (Proventil Neb Soln) 2.5 mg NEB Q4H PRN PRN Reason: Shortness Of Breath/wheezing Atorvastatin Calcium (Lipitor) 80 mg PO DAILY [facility] Last Admin: 11/29/19 08:07 Dose: 80 mg Documented by: Dextrose (Glutose 15) 15 gm PO ONETIME PRN PRN Reason: Hypoglycemia Dextrose/Water (Dextrose 50% In Water) 50 ml IV ONETIME PRN PRN Reason: Hypoglycemia Hydroxyzine HCl (Atarax) 25 mg PO QID [facility] Last Admin: 11/29/19 09:06 Dose: Not Given Documented by: Sodium Chloride (Normal Saline) 1,000 mls @ 125 mls/hr IV ASDIRECTED [facility] Last Admin: 11/29/19 09:17 Dose: 125 mls/hr Documented by: Insulin Glargine (Lantus Solostar) 50 units SUBCUT BEDTIME [facility] Last Admin: 11/28/19 21:25 Dose: 50 units Documented by: Insulin Human Lispro (Humalog) 20 unit SUBCUT TIDAC [facility] Last Admin: 11/29/19 07:30 Dose: 20 units Documented by: Insulin Human Lispro (Humalog) 0 unit SUBCUT QIDACANDBED [facility]; Protocol Last Admin: 11/29/19 08:05 Dose: Not Given Documented by: Lisinopril (Prinivil) 10 mg PO DAILY [facility] Last Admin: 11/29/19 08:06 Dose: 10 mg Documented by: Lorazepam (Ativan) 0 mg PO ASDIRECTED [facility]; Protocol Last Admin: 11/28/19 19:50 Dose: 1 mg Documented by: Metformin HCl (Glucophage) 1,000 mg PO BIDMEALS [facility] Last Admin: 11/29/19 08:06 Dose: 1,000 mg Documented by: Metoprolol Tartrate (Lopressor) 50 mg PO BID [facility] Last Admin: 11/29/19 08:06 Dose: 50 mg Documented by: Montelukast Sodium (Singulair) 10 mg PO BEDTIME [facility] Last Admin: 11/28/19 21:27 Dose: 10 mg Documented by: Ondansetron HCl (Zofran) 4 mg IV Q4H PRN PRN Reason: Nausea/Vomiting Last Admin: 11/28/19 17:35 Dose: 4 mg Documented by: Pantoprazole Sodium (Protonix) 40 mg PO DAILY@0730 [facility] Last Admin: 11/29/19 08:05 Dose: 40 mg Documented by: Polyethylene Glycol (Miralax) 17 gm PO DAILY PRN PRN Reason: Constipation Fluticasone/Salmeterol (Fluticasone-Salmeterol 55-14 Mcg Powder Inh) 1 puff INH BIDRT [facility] Last Admin: 11/29/19 08:07 Dose: 1 puff Documented by: Sodium Chloride (Saline Flush) 10 ml FLUSH ASDIRECTED PRN PRN Reason: Keep Vein Open Discontinued Medications Phytonadione 5 mg/ Sodium (Chloride) 50.5 mls @ 100 mls/hr IV NOW ONE Stop: 11/28/19 12:10 Last Admin: 11/28/19 12:20 Dose: 100 mls/hr Documented by: Prochlorperazine Edisylate 10 (mg/ Sodium Chloride) 52 mls @ 150 mls/hr IV ONETIME ONE Stop: 11/28/19 12:04 Last Admin: 11/28/19 11:51 Dose: 150 mls/hr Documented by: Prochlorperazine Edisylate (Compazine) 10 mg IM ONETIME ONE Stop: 11/28/19 11:36 Last Admin: 11/29/19 08:15 Dose: Not Given Documented by: - Exam General: Reports: Alert, Oriented, Cooperative, No Acute Distress Lungs: Reports: Clear to Auscultation, Normal Respiratory Effort Cardiovascular: Reports: Regular Rate, Regular Rhythm, No Murmurs GI/Abdominal Exam: Soft, Non-Tender, No Organomegaly, No Distention *Q Meaningful Use (DIS) - VTE *Q VTE Pharmacological Contraindications *Q: High INR Value
[2019-11-29] MEDS: LORazepam 1 MG Tab PO SCH (10:30)
== END 2019-11-29 11:50 | disposition home or self-care (01) ==
LOC: JP.ED 10:48 → JP.ICU 14:52
PROVIDERS: ADMIT Hospitalist; ATTEND Hospitalist
DX: T45.511A Poisoning by anticoagulants, accidental (unintentional), initial encounter (principal); R79.1 Abnormal coagulation profile; F10.229 Alcohol dependence with intoxication, unspecified; E78.00 Pure hypercholesterolemia, unspecified; I11.0 Hypertensive heart disease with heart failure; I50.9 Heart failure, unspecified; J44.9 Chronic obstructive pulmonary disease, unspecified; K21.9 Gastro-esophageal reflux disease without esophagitis; E66.9 Obesity, unspecified; F41.9 Anxiety disorder, unspecified; I48.91 Unspecified atrial fibrillation; F32.9 Major depressive disorder, single episode, unspecified; E11.40 Type 2 diabetes mellitus with diabetic neuropathy, unspecified; Z79.4 Long term (current) use of insulin; Z79.899 Other long term (current) drug therapy; Z87.891 Personal history of nicotine dependence; Z79.01 Long term (current) use of anticoagulants; Z88.6 Allergy status to analgesic agent; Z88.8 Allergy status to other drugs, medicaments and biological substances; Y90.0 Blood alcohol level of less than 20 mg/100 ml; Z68.33 Body mass index [BMI] 33.0-33.9, adult
CPT/HCPCS: 36415; 71046; 72125; 80053; 80305; 80307; 81001; 82962; 84484; 85027; 85610; 93005; 94640; 96365; 96367; 99285; A9270; J0780; J1815; J2405; J3430; J7030; J7050; 93010; 96361; 96375; G0378

== ENCOUNTER 2019-12-05 14:11 | Emergency (ER) | payer MEDICAID ==
[2019-12-05] MEDS ORDERED: Sodium Chloride 0.9% 10 ML Syringe FLUSH PRN (14:26)
[2019-12-05] MEDS ORDERED: Morphine 4 MG/ML Syringe IVPUSH PRN (14:26)
[2019-12-05] MEDS ORDERED: Nitroglycerin 0.4 MG Tab.SL SL PRN (14:26)
[2019-12-05] MEDS ORDERED: Aspirin 81 MG Tab.Chew PO ONE (14:26)
[2019-12-05] MEDS ORDERED: Metoprolol Tartrate 5 MG/5 ML SDV IV SCH (14:30)
[2019-12-05] MEDS ORDERED: Sodium Chloride 0.9% 1,000 ML IV SCH (14:45)
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
--- NOTE | 2019-12-05 15:08 | CR ---
CHEST: Portable 12/05/2019 2:56 PM CLINICAL HISTORY:Chest pain COMPARISON:11/28/2019 FINDINGS: The heart is enlarged. Pulmonary vascularity is normal. Patient has had previous sternotomy. No infiltrates are seen Impression: Cardiomegaly No acute cardiopulmonary process.
--- NOTE | 2019-12-05 16:20 | CRLCT ---
INDICATION: Trauma. Pain. CT CERVICAL SPINE WITHOUT CONTRAST TECHNIQUE: Multidetector axial CT imaging was performed through the cervical spine, without contrast. Sagittal and coronal reconstructions were generated. Comparison: 11/28/[address] FINDINGS: No acute fractures are identified. Postoperative changes of anterior interbody fusion are again seen. Surgical hardware appears intact. Osseous alignment is within normal limits and no subluxation is seen. Prevertebral soft tissues are unremarkable. Scattered mild cervical spine degenerative changes are again noted. Included portions of the airway and lung apices are within normal limits. IMPRESSION: 1. No fracture, subluxation, or other acute finding identified. 2. Cervical spine postoperative changes and spondylosis, as noted above. ZAINA BAILEY MD [employer] Dictated by Leo Bailey MD @ 12/05/2019 4:16:55 PM Dictated by: Leo Bailey MD @ 12/05/2019 16:19:12 (Electronically Signed)
--- NOTE | 2019-12-05 16:24 | CRLCT ---
INDICATION: trauma, pain CT HEAD WITHOUT CONTRAST TECHNIQUE: Multiple axial CT images were performed through the head without intravenous contrast administration. COMPARISON: 06/14/[address] FINDINGS: No acute intracranial hemorrhage is identified. No extra-axial collections are evident and there is no mass effect or midline shift. Ventricles are normal in size and configuration. Brain parenchyma appears normal with unremarkable knowles-white differentiation. Osseous structures are within normal limits and no fractures are seen. Included portions of the paranasal sinuses and mastoid air cells are normally aerated. IMPRESSION: Normal non-contrast head CT. ZAINA BAILEY MD [facility] Dictated by: Leo Bailey MD @ 12/05/2019 16:22:55 (Electronically Signed)
[2019-12-05 17:38] VITALS: BP 126/100; PULSE 111
== END 2019-12-05 17:50 | disposition home or self-care (01) ==
LOC: JP.ED 14:11
DX: F10.229 Alcohol dependence with intoxication, unspecified (principal); Y90.8 Blood alcohol level of 240 mg/100 ml or more; I48.91 Unspecified atrial fibrillation; I25.10 Atherosclerotic heart disease of native coronary artery without angina pectoris; I11.0 Hypertensive heart disease with heart failure; I50.9 Heart failure, unspecified; J44.9 Chronic obstructive pulmonary disease, unspecified; K21.9 Gastro-esophageal reflux disease without esophagitis; E11.42 Type 2 diabetes mellitus with diabetic polyneuropathy; E66.9 Obesity, unspecified; F41.9 Anxiety disorder, unspecified; F32.9 Major depressive disorder, single episode, unspecified; R56.9 Unspecified convulsions; Z68.37 Body mass index [BMI] 37.0-37.9, adult; Z88.6 Allergy status to analgesic agent; Z91.09 Other allergy status, other than to drugs and biological substances; Z91.048 Other nonmedicinal substance allergy status; Z79.4 Long term (current) use of insulin; Z79.899 Other long term (current) drug therapy; Z86.73 Personal history of transient ischemic attack (TIA), and cerebral infarction without residual deficits; Z79.01 Long term (current) use of anticoagulants
CPT/HCPCS: 36415; 70450; 71045; 72125; 80053; 80305; 80307; 84484; 85025; 85610; 93005; 96361; 96374; 99285; A9270; J3490; J7030

== ENCOUNTER 2019-12-21 01:10 | Emergency (ER) | payer MEDICAID ==
[2019-12-21 01:23] VITALS: BP 114/69; PULSE 106
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
[2019-12-21] MEDS ORDERED: Sodium Chloride 0.9% 1,000 ML IV SCH (01:45)
== END 2019-12-21 03:23 | disposition other institution (70) ==
LOC: JP.ED 01:10
DX: F10.229 Alcohol dependence with intoxication, unspecified (principal); Y90.8 Blood alcohol level of 240 mg/100 ml or more; I48.91 Unspecified atrial fibrillation; I25.10 Atherosclerotic heart disease of native coronary artery without angina pectoris; E78.00 Pure hypercholesterolemia, unspecified; I11.0 Hypertensive heart disease with heart failure; I50.9 Heart failure, unspecified; J44.9 Chronic obstructive pulmonary disease, unspecified; K21.9 Gastro-esophageal reflux disease without esophagitis; M19.90 Unspecified osteoarthritis, unspecified site; E11.42 Type 2 diabetes mellitus with diabetic polyneuropathy; F41.9 Anxiety disorder, unspecified; F32.9 Major depressive disorder, single episode, unspecified; E66.9 Obesity, unspecified; Z68.32 Body mass index [BMI] 32.0-32.9, adult; R56.9 Unspecified convulsions; Z88.8 Allergy status to other drugs, medicaments and biological substances; Z91.048 Other nonmedicinal substance allergy status; Z88.6 Allergy status to analgesic agent; Z79.4 Long term (current) use of insulin; Z79.899 Other long term (current) drug therapy
CPT/HCPCS: 36415; 80307; 82962; 85610; 99284; J7030

== ENCOUNTER 2020-01-05 23:38 | Emergency (ER) | payer MEDICAID ==
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
[2020-01-06 00:09] VITALS: BP 125/73; PULSE 85
== END 2020-01-06 07:57 | disposition home or self-care (01) ==
LOC: JP.ED 23:38
DX: F10.229 Alcohol dependence with intoxication, unspecified (principal); E11.9 Type 2 diabetes mellitus without complications; E66.9 Obesity, unspecified; I11.0 Hypertensive heart disease with heart failure; I50.9 Heart failure, unspecified; E78.00 Pure hypercholesterolemia, unspecified; I48.91 Unspecified atrial fibrillation; K21.9 Gastro-esophageal reflux disease without esophagitis; J44.9 Chronic obstructive pulmonary disease, unspecified; I25.10 Atherosclerotic heart disease of native coronary artery without angina pectoris; Y90.8 Blood alcohol level of 240 mg/100 ml or more; Z88.6 Allergy status to analgesic agent; Z91.09 Other allergy status, other than to drugs and biological substances; Z88.8 Allergy status to other drugs, medicaments and biological substances; Z79.01 Long term (current) use of anticoagulants; Z79.4 Long term (current) use of insulin; Z79.899 Other long term (current) drug therapy; Z90.49 Acquired absence of other specified parts of digestive tract; Z98.890 Other specified postprocedural states; Z68.22 Body mass index [BMI] 22.0-22.9, adult
CPT/HCPCS: 36415; 80053; 80305-QW; 80307; 85025; 85610; 99284

== ENCOUNTER 2020-01-08 01:58 | Emergency (ER) | payer MEDICAID ==
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
[2020-01-08] MEDS ORDERED: HYDROmorphone 0.5 MG/0.5 ML Syringe IVPUSH ONE (02:59)
[2020-01-08] MEDS ORDERED: Aspirin 81 MG Tab.Chew PO ONE (02:59)
[2020-01-08] MEDS ORDERED: Sodium Chloride 0.9% 1,000 ML IV SCH (03:00)
[2020-01-08] MEDS ORDERED: Magnesium Sulfate/Water 2 GM in Premix Bag 1 BAG IV ONE (03:46)
[2020-01-08 08:15] VITALS: BP 147/88; PULSE 92
--- NOTE | 2020-01-08 10:36 | CR ---
CHEST: 2 view CLINICAL HISTORY:Chest pain COMPARISON:12/05/2019 FINDINGS: The heart size, pulmonary vascularity and hilar structures are normal. No infiltrate effusion or pneumothorax is seen. Patient has had previous aortic valve replacement IMPRESSION: No acute cardiopulmonary process.
--- NOTE | 2020-01-08 10:38 | CR ---
Knee 3V Rt CLINICAL HISTORY: Knee pain FINDINGS: No acute fracture or dislocation is noted. There are no osseous lesions. There is joint space narrowing most notable in the medial compartment. There is moderate periarticular patellar spurring. There are some calcific or ossific foci in the intra-articular region. Some of these may represent loose bodies. Impression: Moderate osteoarthritic change Possible loose bodies
== END 2020-01-08 09:27 | disposition home or self-care (01) ==
LOC: JP.ED 01:58
DX: F10.129 Alcohol abuse with intoxication, unspecified (principal); E83.42 Hypomagnesemia; E11.42 Type 2 diabetes mellitus with diabetic polyneuropathy; E66.9 Obesity, unspecified; F41.0 Panic disorder [episodic paroxysmal anxiety]; F32.9 Major depressive disorder, single episode, unspecified; K21.9 Gastro-esophageal reflux disease without esophagitis; I25.10 Atherosclerotic heart disease of native coronary artery without angina pectoris; I11.0 Hypertensive heart disease with heart failure; I50.9 Heart failure, unspecified; I48.91 Unspecified atrial fibrillation; J44.9 Chronic obstructive pulmonary disease, unspecified; Z79.01 Long term (current) use of anticoagulants; Z79.4 Long term (current) use of insulin; Z79.899 Other long term (current) drug therapy; Z90.49 Acquired absence of other specified parts of digestive tract; Z98.890 Other specified postprocedural states; Y90.8 Blood alcohol level of 240 mg/100 ml or more; Z88.6 Allergy status to analgesic agent; Z88.8 Allergy status to other drugs, medicaments and biological substances; Z68.32 Body mass index [BMI] 32.0-32.9, adult
CPT/HCPCS: 36415; 71046; 73562; 80053; 80305; 80307; 81001; 83605; 83735; 83880; 84484; 85027; 85379; 85610; 93005; 96361; 96365; 96366; 96375; 99285; A9270; J1170; J3475; J7030; 93010; 99284

== ENCOUNTER 2020-01-27 10:41 | Emergency (ER) | payer MEDICAID ==
[2020-01-27 11:56] VITALS: BP 150/99; PULSE 105
[2020-01-27] MEDS ORDERED: Ondansetron 4 MG Tab.DIS PO ONE (12:11)
[2020-01-27] MEDS ORDERED: LORazepam 2 MG/ML SDV IM ONE (12:11)
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
[2020-01-27] MEDS ORDERED: Gabapentin 400 MG Cap PO STA (14:11)
[2020-01-27] MEDS ORDERED: LORazepam 1 MG Tab PO ONE (14:11)
== END 2020-01-27 16:00 ==
LOC: JP.ED 10:41
DX: F10.20 Alcohol dependence, uncomplicated (principal); I48.91 Unspecified atrial fibrillation; I25.10 Atherosclerotic heart disease of native coronary artery without angina pectoris; I11.0 Hypertensive heart disease with heart failure; I50.9 Heart failure, unspecified; E78.00 Pure hypercholesterolemia, unspecified; J44.9 Chronic obstructive pulmonary disease, unspecified; K21.9 Gastro-esophageal reflux disease without esophagitis; F41.9 Anxiety disorder, unspecified; F32.9 Major depressive disorder, single episode, unspecified; E11.42 Type 2 diabetes mellitus with diabetic polyneuropathy; E66.9 Obesity, unspecified; Z68.32 Body mass index [BMI] 32.0-32.9, adult; Z88.8 Allergy status to other drugs, medicaments and biological substances; Z91.048 Other nonmedicinal substance allergy status; Z88.6 Allergy status to analgesic agent; Z79.4 Long term (current) use of insulin; Z79.01 Long term (current) use of anticoagulants; Z79.899 Other long term (current) drug therapy; Z86.73 Personal history of transient ischemic attack (TIA), and cerebral infarction without residual deficits; Y90.4 Blood alcohol level of 80-99 mg/100 ml
CPT/HCPCS: 36415; 80307; 82947; 85610; 96372; 99284; A9270; J2060

== ENCOUNTER 2020-06-14 09:14 | Inpatient (IN) | payer MEDICAID ==
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
[2020-06-14] MEDS ORDERED: Sodium Chloride 0.9% 1,000 ML IV ONE (09:59)
[2020-06-14] MEDS ORDERED: Sodium Chloride 3% 500 ML IV SCH (10:00)
--- NOTE | 2020-06-14 10:04 | CR ---
CHEST: Portable 06/14/2020 at 9:49 AM CLINICAL HISTORY:Right rib pain COMPARISON:01/08/2020 FINDINGS: Heart size and pulmonary vascularity are normal. Patient has had previous sternotomy. Lung andrews are clear. There is no pneumothorax or pleural effusion. IMPRESSION: Previous sternotomy No acute cardiopulmonary process
[2020-06-14] MEDS ORDERED: Sodium Chloride 0.9% 1,000 ML IV SCH ×2 (10:15→13:39)
[2020-06-14] MEDS ORDERED: Phytonadione 5 MG in Sodium Chloride 0.9% 50 ML IV ONE ×2 (10:42→11:00)
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
--- NOTE | 2020-06-14 11:42 | US ---
Renal Ltd Bi CLINICAL HISTORY: Renal failure. COMPARISON: CT 2009. TECHNIQUE: Multiple sonographic images were obtained through the kidneys in the sagittal and transverse projections. Right kidney measures 11.2 x 5.2 x 6.2 cm. Cortical thickness is 1.7 cm. There is normal flow.. Left kidney measures 11.5 x 5.4 x 5.8 cm. Cortical thickness is 1.8 cm. There is normal blood flow. There is no mass, stones or hydronephrosis IMPRESSION: No mass, stones or hydronephrosis
[2020-06-14] MEDS ORDERED: INSULIN ASPART 20 UNIT SQ SCH (13:39)
[2020-06-14] MEDS ORDERED: 50% Dextrose in Water 50 ML Syringe IV PRN (13:39)
[2020-06-14] MEDS ORDERED: Glucose Gel 15 GM in 37.5 GM Tube PO PRN (13:39)
[2020-06-14] MEDS ORDERED: Albuterol 8 GM Inhaler INH PRN (13:39)
[2020-06-14] MEDS ORDERED: Polyethylene Glycol 3350 Powder 17 GM Packet PO PRN (13:39)
[2020-06-14] MEDS ORDERED: Sodium Chloride 0.9% 10 ML Syringe FLUSH PRN (13:39)
[2020-06-14] MEDS ORDERED: Albuterol 0.083% 2.5 MG/3 ML Neb Soln NEB PRN (13:39)
[2020-06-14] MEDS: Acetaminophen 325 MG Tab PO PRN (14:06)
[2020-06-14] MEDS: Ondansetron 4 MG Tab.DIS PO PRN ×2 (14:07→21:41)
[2020-06-14] MEDS: LORazepam 1 MG Tab PO SCH ×3 (14:20→23:40)
[2020-06-14] MEDS: Insulin Lispro 100 Unit/ML 3 ML KwikPen SUBCUT SCH ×4 (14:21→21:33)
[2020-06-14] MEDS: Thiamine 100 MG Tab PO SCH (16:49)
[2020-06-14] MEDS: Folic Acid 1 MG Tab PO SCH (16:49)
[2020-06-14] MEDS ORDERED: 50% Dextrose in Water 50 ML Syringe IVPUSH PRN (17:52)
[2020-06-14] MEDS ORDERED: Insulin Lispro 100 Unit/ML 3 ML KwikPen SUBCUT ONE (17:52)
[2020-06-14] MEDS ORDERED: Glucagon,Human Recombinant 1 MG Vial IM PRN (17:52)
[2020-06-14] MEDS ORDERED: INSULIN DETEMIR 50 UNIT SQ SCH (21:00)
[2020-06-14] MEDS: Formoterol/Mometasone 100-5 MCG 8.8 GM Inhaler IH SCH (21:40)
[2020-06-14] MEDS: Insulin Glargine,Human Rec. Analog 100 Units/ML 3 ML Pen SUBCUT SCH (21:40)
[2020-06-15] MEDS: Formoterol/Mometasone 100-5 MCG 8.8 GM Inhaler IH SCH ×2 (07:20→21:43)
[2020-06-15] MEDS: LORazepam 1 MG Tab PO SCH ×3 (07:32→15:31)
[2020-06-15] MEDS: Pantoprazole 40 MG Tab.CR PO SCH (08:01)
[2020-06-15] MEDS: Insulin Lispro 100 Unit/ML 3 ML KwikPen SUBCUT SCH ×7 (08:53→21:42)
[2020-06-15] MEDS ORDERED: Non-Formulary Medication 1 Each (Omeprazole [Omeprazole] 40 MG) PO SCH (09:00)
[2020-06-15] MEDS ORDERED: Non-Formulary Medication 1 Each (Atorvastatin [Lipitor] 80 MG) PO SCH (09:00)
[2020-06-15] MEDS: Folic Acid 1 MG Tab PO SCH (09:19)
[2020-06-15] MEDS: Thiamine 100 MG Tab PO SCH (09:19)
[2020-06-15] MEDS: atorvaSTATin 20 MG Tab PO SCH (09:19)
--- NOTE | 2020-06-15 11:00 | PCM.PN ---
- General Info Date of Service: 06/15/20 Subjective Update: Mr. Lemons has remained stable since admission. Feeling somewhat weak and nauseated this morning, which he feels is related to alcohol withdrawal. Overall vital signs have been stable and he has remained afebrile. Renal function significantly improved with hydration. Functional Status: Reports: Tolerating Diet, Ambulating, Urinating - Review of Systems General: Reports: Weakness, Fatigue. Denies: Fever, Chills Pulmonary: Reports: No Symptoms Cardiovascular: Reports: No Symptoms Gastrointestinal: Reports: Nausea. Denies: Abdominal Pain, Diarrhea, Difficulty Swallowing, Hematochezia, Melena, Vomiting - Patient Data Vitals - Most Recent: Last Vital Signs Temp 97.9 F 06/15/20 07:35 Pulse 96 06/15/20 07:35 Resp 16 06/15/20 07:35 BP 145/85 H 06/15/20 07:35 Pulse Ox 96 06/15/20 07:35 Weight - Most Recent: 240 lb I&O - Last 24 Hours: Intake & Output 06/14/20 06/15/20 06/15/20 22:59 06:59 14:59 Output Total 200 Balance -200 Lab Results Last 24 Hours: Laboratory Results - last 24 hr 06/14/20 06/14/20 06/15/20 Range/Units 16:30 21:00 05:00 WBC 7.5 (4.5-11.0) K/uL RBC 3.81 L (4.30-5.90) M/uL Hgb 10.2 L (12.0-15.0) g/dL Hct 31.6 L (40.0-54.0) % MCV 83 (80-98) fL MCH 27 (27-31) pg MCHC 32 (32-36) % Plt Count 208 (150-400) K/uL Neut % (Auto) 78 H (36-66) % Lymph % (Auto) 16 L (24-44) % [place] % (Auto) 5 (2-6) % Eos % (Auto) 0 L (2-4) % Baso % (Auto) 0 (0-1) % PT (9.5-12.0) sec INR (0.80-1.20) Sodium (140-148) mmol/L Potassium (3.6-5.2) mmol/L Chloride (100-108) mmol/L Carbon Dioxide (21-32) mmol/L Anion Gap (5.0-14.0) mmol/L BUN (7-18) mg/dL Creatinine (0.8-1.3) mg/dL Est Cr Clr Drug Dosing mL/min Estimated GFR (MDRD) (>60) Glucose (74-106) mg/dL POC Glucose 163 H 126 H (74-106) MG/DL Calcium (8.5-10.1) mg/dL 06/15/20 06/15/20 06/15/20 Range/Units 05:00 05:00 07:24 WBC (4.5-11.0) K/uL RBC (4.30-5.90) M/uL Hgb (12.0-15.0) g/dL Hct (40.0-54.0) % MCV (80-98) fL MCH (27-31) pg MCHC (32-36) % Plt Count (150-400) K/uL Neut % (Auto) (36-66) % Lymph % (Auto) (24-44) % [place] % (Auto) (2-6) % Eos % (Auto) (2-4) % Baso % (Auto) (0-1) % PT 21.4 H (9.5-12.0) sec INR 1.99 H (0.80-1.20) Sodium 136 L (140-148) mmol/L Potassium 4.2 (3.6-5.2) mmol/L Chloride 104 (100-108) mmol/L Carbon Dioxide 19 L (21-32) mmol/L Anion Gap 17.2 H (5.0-14.0) mmol/L BUN 43 H (7-18) mg/dL Creatinine 2.1 H D (0.8-1.3) mg/dL Est Cr Clr Drug Dosing 39.34 mL/min Estimated GFR (MDRD) 32 L (>60) Glucose 123 H (74-106) mg/dL POC Glucose 121 H (74-106) MG/DL Calcium 7.6 L (8.5-10.1) mg/dL Med Orders - Current: Current Medications Acetaminophen (Tylenol) 650 mg PO Q4H PRN PRN Reason: Pain (Mild 1-3)/fever Last Admin: 06/14/20 14:06 Dose: 650 mg Documented by: Albuterol (Ventolin Hfa) 0 gm INH Q4H PRN PRN Reason: Dyspnea Albuterol (Proventil Neb Soln) 2.5 mg NEB Q4H PRN PRN Reason: Shortness Of Breath/wheezing Atorvastatin Calcium (Lipitor) 80 mg PO DAILY [facility] Last Admin: 06/15/20 09:19 Dose: 80 mg Documented by: Dextrose (Glutose 15) 15 gm PO ASDIRECTED PRN PRN Reason: Hypoglycemia Dextrose/Water (Dextrose 50% In Water) 50 ml IV ASDIRECTED PRN PRN Reason: Hypoglycemia Dextrose/Water (Dextrose 50% In Water) 50 ml IVPUSH ASDIRECTED PRN PRN Reason: Hypoglycemia Folic Acid (Folic Acid) 1 mg PO DAILY [facility] Last Admin: 06/15/20 09:19 Dose: 1 mg Documented by: Glucagon (Glucagen) 1 mg IM ASDIRECTED PRN PRN Reason: Hypoglycemia Insulin Glargine (Lantus Solostar) 50 units SUBCUT BEDTIME [facility] Last Admin: 06/14/20 21:40 Dose: 50 units Documented by: Insulin Human Lispro (Humalog) 0 unit SUBCUT QIDACANDBED [facility]; Protocol Last Admin: 06/15/20 08:53 Dose: Not Given Documented by: Insulin Human Lispro (Humalog) 20 unit SUBCUT TIDAC [facility] Last Admin: 06/15/20 08:54 Dose: Not Given Documented by: Lorazepam (Ativan) 0 mg PO ASDIRECTED [facility]; Protocol Last Admin: 06/15/20 07:32 Dose: 1 mg Documented by: Mometasone Furoate/Formoterol Fumar (Dulera 100-5 Mcg) 2 puff IH BIDRT [facility] Last Admin: 06/15/20 07:20 Dose: 2 pack Documented by: Ondansetron HCl (Zofran Odt) 4 mg PO Q6H PRN PRN Reason: Nausea able to take PO Last Admin: 06/14/20 21:41 Dose: 4 mg Documented by: Pantoprazole Sodium (Protonix) 40 mg PO ACBREAKFAST [facility] Last Admin: 06/15/20 08:01 Dose: 40 mg Documented by: Polyethylene Glycol (Miralax) 17 gm PO DAILY PRN PRN Reason: Constipation Sodium Chloride (Saline Flush) 10 ml FLUSH ASDIRECTED PRN PRN Reason: Keep Vein Open Thiamine HCl (Vitamin B-1) 100 mg PO DAILY [facility] Last Admin: 06/15/20 09:19 Dose: 100 mg Documented by: Warfarin Sodium (Coumadin) 4 mg PO DAILY@1300 JEAN PIERRE Discontinued Medications Sodium Chloride (Normal Saline) 1,000 mls @ 1,000 mls/hr IV .BOLUS ONE Stop: 06/14/20 10:58 Last Admin: 06/14/20 10:02 Dose: 1,000 mls/hr Documented by: Sodium Chloride (Normal Saline) 1,000 mls @ 1,000 mls/hr IV ASDIRECTED [facility] Last Admin: 06/14/20 11:00 Dose: 1,000 mls/hr Documented by: Phytonadione 5 mg/ Sodium (Chloride) 50.5 mls @ 100 mls/hr IV NOW ONE Stop: 06/14/20 11:30 Last Admin: 06/14/20 11:01 Dose: 100 mls/hr Documented by: Sodium Chloride (Normal Saline) 1,000 mls @ 125 mls/hr IV ASDIRECTED [facility] Last Admin: 06/14/20 14:15 Dose: 125 mls/hr Documented by: Insulin Human Lispro (Humalog) 6 unit SUBCUT ONETIME ONE Stop: 06/14/20 17:53 Last Admin: 06/14/20 18:19 Dose: 6 units Documented by: - Exam Quality Assessment: DVT Prophylaxis General: Alert, Oriented, Cooperative, Mild Distress Lungs: Clear to Auscultation, Normal Respiratory Effort Cardiovascular: Regular Rate, Regular Rhythm, No Murmurs GI/Abdominal Exam: Soft, Non-Tender, No Organomegaly, No Distention Extremities: Non-Tender, No Pedal Edema Sepsis Event Note - Evaluation Sepsis Screening Result: No Definite Risk - Focused Exam Vital Signs: Vital Signs Temp Pulse Resp BP Pulse Ox 06/15/20 07:35 97.9 F 96 16 145/85 H 96 06/15/20 03:00 97.6 F 97 18 138/80 97 06/14/20 23:29 97.6 F 118 H 17 150/96 H 97 - Problem List Review Problem List Initiated/Reviewed/Updated: Yes - My Orders Last 24 Hours: My Active Orders 06/14/20 10:37 Resuscitation Status Routine 06/14/20 13:39 Acetaminophen [TylenoL] 650 mg PO Q4H PRN Albuterol [Proventil Neb Soln] 2.5 mg NEB Q4H PRN Albuterol [Ventolin HFA] 0 gm INH Q4H PRN Dextrose 50% in Water 50 ml IV ASDIRECTED PRN Dextrose [Glutose 15] 15 gm PO ASDIRECTED PRN Insulin Lispro [HumaLOG] See Protocol SUBCUT QIDACANDBED LORazepam [Ativan] See Protocol PO ASDIRECTED Ondansetron [Zofran ODT] 4 mg PO Q6H PRN Sodium Chloride 0.9% [Saline Flush] 10 ml FLUSH ASDIRECTED PRN polyethylene glycoL 3350 [MiraLAX] 17 gm PO DAILY PRN 06/14/20 13:39 Patient Status [ADT] Routine Ambulate [RC] QID CIWAA Assessment [RC] Q4H Cardiac Monitoring [RC] .As Directed Diabetes Education [RC] Click to Edit Height and Weight [RC] 0500 Intake and Output [RC] QSHIFT Notify Provider Vital Signs [RC] ASDIRECTED Notify Provider [RC] PRN Notify Provider [RC] PRN Oxygen Therapy [RC] .PRN Peripheral IV Care [RC] Q12H RT Aerosol Therapy [RC] ASDIRECTED RT Post Treatment Assessment [RC] Click to Edit Up With Assistance [RC] ASDIRECTED Up to Chair [RC] QID Vital Signs [RC] Q4H Peripheral IV Insertion Adult [OM.PC] Routine 06/14/20 15:30 Folic Acid 1 mg PO DAILY Thiamine [Vitamin B-1] 100 mg PO DAILY 06/14/20 16:00 Insulin Lispro [HumaLOG] 20 unit SUBCUT TIDAC 06/14/20 17:52 Dextrose 50% in Water 50 ml IVPUSH ASDIRECTED PRN Glucagon,Human Recombinant [GlucaGen] 1 mg IM ASDIRECTED PRN 06/14/20 21:00 Insulin Glarg,Human.Rec.Analog [LantUS Solostar] 50 units SUBCUT BEDTIME Mometasone/Formoterol [Dulera 100-5 MCG] 2 puff IH BIDRT 06/15/20 07:30 Pantoprazole [ProTONIX] 40 mg PO ACBREAKFAST 06/15/20 09:00 atorvaSTATin [Lipitor] 80 mg PO DAILY 06/15/20 10:38 Convert IV to Saline Lock [OM.PC] Routine 06/15/20 11:30 GLUCOSE POC LAB TO COLLECT JPM [POC] QIDACANDBED 06/15/20 13:00 Warfarin [Coumadin] 4 mg PO DAILY@1300 06/15/20 16:30 GLUCOSE POC LAB TO COLLECT JPM [POC] QIDACANDBED 06/15/20 21:00 GLUCOSE POC LAB TO COLLECT JPM [POC] QIDACANDBED 06/16/20 05:00 BASIC METABOLIC PANEL,BMP [CHEM] Timed 06/16/20 05:11 INR,PT,PROTHROMBIN TIME [COAG] AM 06/16/20 07:30 GLUCOSE POC LAB TO COLLECT JPM [POC] QIDACANDBED 06/16/20 11:30 GLUCOSE POC LAB TO COLLECT JPM [POC] QIDACANDBED 06/16/20 16:30 GLUCOSE POC LAB TO COLLECT JPM [POC] QIDACANDBED 06/16/20 21:00 GLUCOSE POC LAB TO COLLECT JPM [POC] QIDACANDBED 06/17/20 07:30 GLUCOSE POC LAB TO COLLECT JPM [POC] QIDACANDBED 06/17/20 11:30 GLUCOSE POC LAB TO COLLECT JPM [POC] QIDACANDBED 06/17/20 16:30 GLUCOSE POC LAB TO COLLECT JPM [POC] QIDACANDBED 06/17/20 21:00 GLUCOSE POC LAB TO COLLECT JPM [POC] QIDACANDBED 06/18/20 07:30 GLUCOSE POC LAB TO COLLECT JPM [POC] QIDACANDBED 06/18/20 11:30 GLUCOSE POC LAB TO COLLECT JPM [POC] QIDACANDBED 06/18/20 16:30 GLUCOSE POC LAB TO COLLECT JPM [POC] QIDACANDBED 06/18/20 21:00 GLUCOSE POC LAB TO COLLECT JPM [POC] QIDACANDBED 06/19/20 07:30 GLUCOSE POC LAB TO COLLECT JPM [POC] QIDACANDBED 06/19/20 11:30 GLUCOSE POC LAB TO COLLECT JPM [POC] QIDACANDBED - Plan Plan:: ASSESSMENT AND PLAN ACUTE KIDNEY INJURY-renal function improved significantly with hydration -Closely monitor urine output and renal function - Lock IV TYPE 2 DIABETES MELLITUS -Continue usual doses of long-acting and short acting insulin -4 times daily glucometers -Moderate dose sliding scale Humalog SUPRATHERAPEUTIC INR-INR improved today -Warfarin 4 mg p.o. daily -Reassess INR in a.m. ALCOHOL ABUSE AND INTOXICATION-he is ready to go to detox, no beds available -Monitor closely for alcohol withdrawal -Alcohol withdrawal protocol -Transfer to detox when medically stable MAINTENANCE ISSUES -DVT prophylaxis; current therapy with warfarin should provide adequate DVT prophylaxis -GI prophylaxis; continue outpatient PPI therapy -Cohn catheter; not indicated -Nutrition; consistent carbohydrate diet -Nicotine dependence; not required CODE STATUS-FULL CODE ADMISSION STATUS-patient will be admitted to inpatient status, expect at least a 2 night hospital stay for evaluation and management of problems as outlined above. At the time of this admission I do not reasonably expected evaluation and management of this problem will require more than a 96 hour hospital stay. DISPOSITION-anticipate discharge to home after the hospital stay.
[2020-06-15] MEDS: Acetaminophen 325 MG Tab PO PRN (15:34)
[2020-06-15] MEDS: Insulin Glargine,Human Rec. Analog 100 Units/ML 3 ML Pen SUBCUT SCH (21:43)
[2020-06-16] MEDS: LORazepam 1 MG Tab PO SCH ×3 (01:43→11:43)
[2020-06-16] MEDS: Ondansetron 4 MG Tab.DIS PO PRN ×2 (01:44→08:26)
[2020-06-16] MEDS: Formoterol/Mometasone 100-5 MCG 8.8 GM Inhaler IH SCH (07:28)
[2020-06-16] MEDS: Acetaminophen 325 MG Tab PO PRN (08:26)
[2020-06-16] MEDS: atorvaSTATin 20 MG Tab PO SCH (08:29)
[2020-06-16] MEDS: Folic Acid 1 MG Tab PO SCH (08:30)
[2020-06-16] MEDS: Pantoprazole 40 MG Tab.CR PO SCH (08:30)
[2020-06-16] MEDS: Thiamine 100 MG Tab PO SCH (08:30)
[2020-06-16] MEDS: Insulin Lispro 100 Unit/ML 3 ML KwikPen SUBCUT SCH ×4 (08:39→12:35)
[2020-06-16] MEDS ORDERED: Potassium Chloride 20 MEQ Tab.ER PO ONE (09:00)
[2020-06-16] MEDS ORDERED: Diclofenac Sodium 1% Gel 100 GM Tube TOP PRN (09:45)
--- NOTE | 2020-06-16 09:55 | PCM.DCSUM1 ---
Discharge Summary - Hospital Course Brief History: Mr. Lemons is a 60-year-old gentleman who was admitted through the emergency department with weakness and dehydration secondary to acute kidney injury and alcohol intoxication. - Discharge Data Discharge Date: 06/16/20 Discharge Disposition: Home, Self-Care 01 Condition: Fair - Referral to Home Health Primary Care Physician: PCP None - Discharge Diagnosis/Problem(s) (1) Acute on chronic renal failure SNOMED Code(s): 475289075 ICD Code: N17.9 - ACUTE KIDNEY FAILURE, UNSPECIFIED; N18.9 - CHRONIC KIDNEY DISEASE, UNSPECIFIED Status: Acute Current Visit: Yes Qualifiers: Acute renal failure type: unspecified Chronic kidney disease stage: stage 4 (severe) Qualified Code(s): N17.9 - Acute kidney failure, unspecified; N18.4 - Chronic kidney disease, stage 4 (severe) (2) Anticoagulation excessive SNOMED Code(s): 92793033, 467223302 ICD Code: [id number] - Status: Acute Current Visit: Yes (3) Chronic alcoholism SNOMED Code(s): 7692204 ICD Code: F10.20 - ALCOHOL DEPENDENCE, UNCOMPLICATED Status: Chronic Current Visit: Yes (4) Diabetes mellitus type 2 SNOMED Code(s): 71694354 ICD Code: E11.9 - TYPE 2 DIABETES MELLITUS WITHOUT COMPLICATIONS Status: Chronic Priority: Medium Current Visit: No - Patient Summary/Data Hospital Course: Mr. Lemons is a 60-year-old gentleman who was admitted through the emergency department with weakness and recent falls secondary to alcohol intoxication and development of acute kidney injury. He has a known and longstanding history of of type 2 diabetes mellitus. He presents frequently to the emergency department intoxicated, requesting transfer to detox. Intermittently creatinine is noted to be elevated and he does have underlying chronic kidney disease stage III. He has been drinking heavily over the past 2 weeks and has had several falls over the past week and does report right-sided chest wall pain. He presented to the emergency department, intoxicated with an alcohol level of over 200. Laboratory tests show creatinine above 5 which is higher than it has been in the past. Urinalysis shows no active sediment or evidence of infection and renal ultrasound shows no evidence of obstruction or hydronephrosis. On admission he was given IV fluids for hydration as well as medication as needed for nausea. By the following morning there was significant improvement in his renal insufficiency although not yet back to baseline. Glucose levels were monitored throughout his hospital stay and he was treated with supplemental sliding scale Humalog. He was placed on alcohol withdrawal protocol and treated as needed with lorazepam for management of his withdrawal. He is medically stable on the morning of transfer and will be sent to [place] for further detox. He has noted right chest wall pain related to a fall and was started on Voltaren gel prior to discharge. Activity will be as tolerated and he will resume his usual diabetic diet. - Patient Instructions Diet: Diabetic Diet Activity: As Tolerated Other/Special Instructions: Discharge to [place] detox center, for management of alcohol withdrawal - Discharge Plan *PRESCRIPTION DRUG MONITORING PROGRAM REVIEWED*: Not Applicable *COPY OF PRESCRIPTION DRUG MONITORING REPORT IN PATIENT CAIT: Not Applicable Prescriptions/Med Rec: Diclofenac Sodium [Voltaren 1% Gel] 1 gm TOP QID PRN #1 tube PRN Reason: pain Home Medications: Home Meds Insulin Aspart [NovoLOG] 20 units SQ TIDAC 02/22/13 [History] Insulin Detemir [Levemir] 50 units SQ BEDTIME 02/22/13 [History] Metoprolol Tartrate 50 mg PO BID 02/22/13 [History] Montelukast [Singulair] 10 mg PO BEDTIME 02/22/13 [History] Warfarin [Coumadin] 4 mg PO DAILY 11/17/15 [History] atorvaSTATin [Lipitor] 80 mg PO DAILY 05/28/17 [History] metFORMIN [Glucophage] 1,000 mg PO BIDMEALS 05/28/17 [History] Cyanocobalamin (Vitamin B-12) [B-12] 2 tab PO DAILY 02/24/18 [History] Lisinopril 20 mg PO DAILY 02/24/18 [History] Loratadine 1 tab PO DAILY 02/24/18 [History] Ondansetron [Ondansetron ODT] 1 tab PO Q8H PRN 08/26/18 [History] Alum Hydrox/Mag Hydrox/Simeth [Maalox Advanced] 15 ml PO Q4H PRN 09/11/18 [H istory] Folic Acid 1 mg PO DAILY 01/13/19 [History] Formoterol/Mometasone [Dulera 100 MCG/5 MCG] 2 puff IH BID 01/13/19 [History] Calcium Carbonate/Vitamin D3 [Calcium 600-Vit D3 400 Tablet] 1 tab PO BID 06/23/19 [History] Ferrous Sulfate 325 mg PO BID 06/23/19 [History] Mometasone/Formoterol [Dulera 200 MCG/5 MCG] 2 puff INH BID 06/23/19 [History] Albuterol Sulfate [Albuterol Sulfate Hfa] 2 puff IH Q4H PRN 11/28/19 [History] Magnesium Oxide [Magnesium] 400 mg PO DAILY 11/28/19 [History] Omeprazole 40 mg PO DAILY 11/28/19 [History] hydrOXYzine HCL [Hydroxyzine HCl] 25 mg PO QID 11/28/19 [History] Diclofenac Sodium [Voltaren 1% Gel] 1 gm TOP QID PRN #1 tube 06/16/20 [Rx] Referrals: PCP,None [Primary Care Provider] - - Discharge Summary/Plan Comment DC Time >30 min.: No - Patient Data Vitals - Most Recent: Last Vital Signs Temp 100.5 F 06/16/20 08:08 Pulse 105 H 06/16/20 08:08 Resp 16 06/16/20 08:08 BP 145/86 H 06/16/20 08:08 Pulse Ox 94 L 06/16/20 08:08 Weight - Most Recent: 240 lb I&O - Last 24 hours: Intake & Output 06/15/20 06/16/20 06/16/20 22:59 06:59 14:59 Intake Total 320 240 Balance 320 240 Lab Results - Last 24 hrs: Laboratory Results - last 24 hr 06/15/20 06/15/20 06/15/20 Range/Units 11:30 16:30 21:00 PT (9.5-12.0) sec INR (0.80-1.20) Sodium (140-148) mmol/L Potassium (3.6-5.2) mmol/L Chloride (100-108) mmol/L Carbon Dioxide (21-32) mmol/L Anion Gap (5.0-14.0) mmol/L BUN (7-18) mg/dL Creatinine (0.8-1.3) mg/dL Est Cr Clr Drug Dosing mL/min Estimated GFR (MDRD) (>60) Glucose (74-106) mg/dL POC Glucose 142 H 120 H 227 H (74-106) MG/DL Calcium (8.5-10.1) mg/dL 06/16/20 06/16/20 06/16/20 Range/Units 05:00 05:00 07:25 PT 16.4 H (9.5-12.0) sec INR 1.52 H (0.80-1.20) Sodium 140 (140-148) mmol/L Potassium 3.5 L (3.6-5.2) mmol/L Chloride 106 (100-108) mmol/L Carbon Dioxide 25 (21-32) mmol/L Anion Gap 12.5 (5.0-14.0) mmol/L BUN 26 H (7-18) mg/dL Creatinine 1.2 (0.8-1.3) mg/dL Est Cr Clr Drug Dosing 68.85 mL/min Estimated GFR (MDRD) > 60 (>60) Glucose 91 (74-106) mg/dL POC Glucose 82 (74-106) MG/DL Calcium 8.0 L (8.5-10.1) mg/dL Med Orders - Current: Current Medications Acetaminophen (Tylenol) 650 mg PO Q4H PRN PRN Reason: Pain (Mild 1-3)/fever Last Admin: 06/16/20 08:26 Dose: 650 mg Documented by: Albuterol (Ventolin Hfa) 0 gm INH Q4H PRN PRN Reason: Dyspnea Albuterol (Proventil Neb Soln) 2.5 mg NEB Q4H PRN PRN Reason: Shortness Of Breath/wheezing Atorvastatin Calcium (Lipitor) 80 mg PO DAILY [facility] Last Admin: 06/16/20 08:29 Dose: 80 mg Documented by: Dextrose (Glutose 15) 15 gm PO ASDIRECTED PRN PRN Reason: Hypoglycemia Dextrose/Water (Dextrose 50% In Water) 50 ml IV ASDIRECTED PRN PRN Reason: Hypoglycemia Dextrose/Water (Dextrose 50% In Water) 50 ml IVPUSH ASDIRECTED PRN PRN Reason: Hypoglycemia Diclofenac Sodium (Voltaren 1% Gel) 0 gm TOP QID PRN PRN Reason: pain Folic Acid (Folic Acid) 1 mg PO DAILY [facility] Last Admin: 06/16/20 08:30 Dose: 1 mg Documented by: Glucagon (Glucagen) 1 mg IM ASDIRECTED PRN PRN Reason: Hypoglycemia Insulin Glargine (Lantus Solostar) 50 units SUBCUT BEDTIME [facility] Last Admin: 06/15/20 21:43 Dose: 50 units Documented by: Insulin Human Lispro (Humalog) 0 unit SUBCUT QIDACANDBED [facility]; Protocol Last Admin: 06/16/20 08:39 Dose: Not Given Documented by: Insulin Human Lispro (Humalog) 20 unit SUBCUT TIDAC [facility] Last Admin: 06/16/20 08:39 Dose: Not Given Documented by: Lorazepam (Ativan) 0 mg PO ASDIRECTED [facility]; Protocol Last Admin: 06/16/20 08:28 Dose: 2 mg Documented by: Mometasone Furoate/Formoterol Fumar (Dulera 100-5 Mcg) 2 puff IH BIDRT [facility] Last Admin: 06/16/20 07:28 Dose: 2 pack Documented by: Ondansetron HCl (Zofran Odt) 4 mg PO Q6H PRN PRN Reason: Nausea able to take PO Last Admin: 06/16/20 08:26 Dose: 4 mg Documented by: Pantoprazole Sodium (Protonix) 40 mg PO ACBREAKFAST [facility] Last Admin: 06/16/20 08:30 Dose: 40 mg Documented by: Polyethylene Glycol (Miralax) 17 gm PO DAILY PRN PRN Reason: Constipation Sodium Chloride (Saline Flush) 10 ml FLUSH ASDIRECTED PRN PRN Reason: Keep Vein Open Thiamine HCl (Vitamin B-1) 100 mg PO DAILY [facility] Last Admin: 06/16/20 08:30 Dose: 100 mg Documented by: Warfarin Sodium (Coumadin) 4 mg PO DAILY@1300 [facility] Last Admin: 06/15/20 12:59 Dose: 4 mg Documented by: Discontinued Medications Sodium Chloride (Normal Saline) 1,000 mls @ 1,000 mls/hr IV .BOLUS ONE Stop: 06/14/20 10:58 Last Admin: 06/14/20 10:02 Dose: 1,000 mls/hr Documented by: Sodium Chloride (Normal Saline) 1,000 mls @ 1,000 mls/hr IV ASDIRECTED [facility] Last Admin: 06/14/20 11:00 Dose: 1,000 mls/hr Documented by: Phytonadione 5 mg/ Sodium (Chloride) 50.5 mls @ 100 mls/hr IV NOW ONE Stop: 06/14/20 11:30 Last Admin: 06/14/20 11:01 Dose: 100 mls/hr Documented by: Sodium Chloride (Normal Saline) 1,000 mls @ 125 mls/hr IV ASDIRECTED [facility] Last Admin: 06/14/20 14:15 Dose: 125 mls/hr Documented by: Insulin Human Lispro (Humalog) 6 unit SUBCUT ONETIME ONE Stop: 06/14/20 17:53 Last Admin: 06/14/20 18:19 Dose: 6 units Documented by: Potassium Chloride (Klor-Con M20) 40 meq PO ONETIME ONE Stop: 06/16/20 09:01 Last Admin: 06/16/20 08:35 Dose: 40 meq Documented by: - Exam General: Reports: Alert, Cooperative, Moderate Distress Lungs: Reports: Clear to Auscultation, Normal Respiratory Effort Cardiovascular: Reports: Regular Rate, Regular Rhythm, No Murmurs GI/Abdominal Exam: Soft, Non-Tender, No Organomegaly, No Distention Extremities: Non-Tender, No Pedal Edema
[2020-06-16 10:33] VITALS: BP 155/93; PULSE 107
== END 2020-06-16 12:35 | disposition home or self-care (01) | DRG 683 ==
LOC: JP.ED 09:14 → JP.MS 10:34
PROVIDERS: ADMIT Hospitalist; ATTEND Hospitalist
DX: N17.9 Acute kidney failure, unspecified (principal); F10.239 Alcohol dependence with withdrawal, unspecified; N18.4 Chronic kidney disease, stage 4 (severe); E86.0 Dehydration; E11.9 Type 2 diabetes mellitus without complications; W19.XXXA Unspecified fall, initial encounter; H91.90 Unspecified hearing loss, unspecified ear; I48.91 Unspecified atrial fibrillation; I25.10 Atherosclerotic heart disease of native coronary artery without angina pectoris; I50.9 Heart failure, unspecified; E78.00 Pure hypercholesterolemia, unspecified; I11.0 Hypertensive heart disease with heart failure; J44.9 Chronic obstructive pulmonary disease, unspecified; K74.60 Unspecified cirrhosis of liver; G89.29 Other chronic pain; M54.9 Dorsalgia, unspecified; M19.90 Unspecified osteoarthritis, unspecified site; G43.909 Migraine, unspecified, not intractable, without status migrainosus; G62.9 Polyneuropathy, unspecified; F41.9 Anxiety disorder, unspecified; F32.9 Major depressive disorder, single episode, unspecified; E66.9 Obesity, unspecified; E53.8 Deficiency of other specified B group vitamins; Z90.49 Acquired absence of other specified parts of digestive tract; Z98.1 Arthrodesis status; Z79.4 Long term (current) use of insulin; Z79.01 Long term (current) use of anticoagulants; Z88.8 Allergy status to other drugs, medicaments and biological substances; Z91.09 Other allergy status, other than to drugs and biological substances; Z95.2 Presence of prosthetic heart valve; Z86.73 Personal history of transient ischemic attack (TIA), and cerebral infarction without residual deficits; R79.1 Abnormal coagulation profile
CPT/HCPCS: 36415; 71045; 71045-26; 76775-26; 76775-50; 80048; 80305-QW; 80307; 81001; 82962; 85025; 85610; 94640; 99285; 99285-25; A9270-GY; J1815; J1815-GY; J3430; J7030

== ENCOUNTER 2020-07-01 06:29 | Emergency (ER) | payer MEDICAID ==
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
[2020-07-01] MEDS ORDERED: Alum Hydrox/Mag Hydrox/Simeth 15 ML, Lidocaine 2% 15 ML PO ONE ×2 (08:42)
--- NOTE | 2020-07-01 09:02 | CR ---
CHEST: Portable 07/01/2020 at 7:37 AM CLINICAL HISTORY:SOB COMPARISON:06/14/2020 FINDINGS: The heart size, pulmonary vascularity and hilar structures are normal. No infiltrate effusion or pneumothorax is seen. There has been previous sternotomy. IMPRESSION: No acute cardiopulmonary process.
[2020-07-01] MEDS ORDERED: Ondansetron 4 MG/2 ML SDV IVPUSH ONE (09:47)
[2020-07-01] MEDS ORDERED: Sodium Chloride 0.9% 1,000 ML IV SCH (10:00)
[2020-07-01 12:20] VITALS: BP 138/85; PULSE 92
== END 2020-07-01 14:44 | disposition home or self-care (01) ==
LOC: JP.ED 06:29
DX: R07.89 Other chest pain (principal); I11.0 Hypertensive heart disease with heart failure; I50.9 Heart failure, unspecified; E66.9 Obesity, unspecified; E11.9 Type 2 diabetes mellitus without complications; I25.10 Atherosclerotic heart disease of native coronary artery without angina pectoris; I48.91 Unspecified atrial fibrillation; E78.00 Pure hypercholesterolemia, unspecified; J44.9 Chronic obstructive pulmonary disease, unspecified; K21.9 Gastro-esophageal reflux disease without esophagitis; Z79.01 Long term (current) use of anticoagulants; Z88.6 Allergy status to analgesic agent; Z88.8 Allergy status to other drugs, medicaments and biological substances; Z79.4 Long term (current) use of insulin; Z79.899 Other long term (current) drug therapy; Z68.33 Body mass index [BMI] 33.0-33.9, adult
CPT/HCPCS: 36415; 71045; 80053; 81001; 84484; 85025; 85610; 93005; 93010; 96374; 99283; 99285; A9270; J2405; J7030

== ENCOUNTER 2020-08-23 22:06 | Emergency (ER) | payer MEDICAID ==
[2020-08-23 23:09] VITALS: BP 154/102; PULSE 95
[2020-08-23] MEDS ORDERED: Bupivacaine 0.5%/EPINEPHrine 1:200,000 1.8 ML Cartridge INJECT ONE (23:44)
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
[2020-08-23] MEDS ORDERED: Clindamycin HCl 150 MG Cap PO ONE (23:53)
== END 2020-08-24 00:22 | disposition home or self-care (01) ==
LOC: JP.ED 22:06
DX: K03.81 Cracked tooth (principal); K04.7 Periapical abscess without sinus; I48.91 Unspecified atrial fibrillation; I11.0 Hypertensive heart disease with heart failure; I50.9 Heart failure, unspecified; I25.10 Atherosclerotic heart disease of native coronary artery without angina pectoris; E78.00 Pure hypercholesterolemia, unspecified; J44.9 Chronic obstructive pulmonary disease, unspecified; K21.9 Gastro-esophageal reflux disease without esophagitis; M19.90 Unspecified osteoarthritis, unspecified site; E11.42 Type 2 diabetes mellitus with diabetic polyneuropathy; E66.9 Obesity, unspecified; Z68.35 Body mass index [BMI] 35.0-35.9, adult; Z88.8 Allergy status to other drugs, medicaments and biological substances; Z88.6 Allergy status to analgesic agent; Z79.4 Long term (current) use of insulin; Z79.01 Long term (current) use of anticoagulants; Z79.899 Other long term (current) drug therapy
CPT/HCPCS: 64400; 99282-25; 99283; A9270-GY; J3490

== ENCOUNTER 2020-12-21 10:01 | Emergency (ER) | payer MEDICAID ==
[2020-12-21 10:10] VITALS: BP 136/86; PULSE 88
[2020-12-21] MEDS ORDERED: Lidocaine 1% with EPINEPHrine 1:100,000 50 ML MDV INFILT ONE (11:48)
[2020-12-21] MEDS ORDERED: Bacitracin Oint 1 GM U/D Packet TOP ONE (11:48)
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
== END 2020-12-21 13:38 | disposition home or self-care (01) ==
LOC: JP.ED 10:01
DX: S51.811A Laceration without foreign body of right forearm, initial encounter (principal); F10.129 Alcohol abuse with intoxication, unspecified; I48.91 Unspecified atrial fibrillation; I25.119 Atherosclerotic heart disease of native coronary artery with unspecified angina pectoris; I11.0 Hypertensive heart disease with heart failure; I50.9 Heart failure, unspecified; E78.00 Pure hypercholesterolemia, unspecified; J44.9 Chronic obstructive pulmonary disease, unspecified; K21.9 Gastro-esophageal reflux disease without esophagitis; E11.40 Type 2 diabetes mellitus with diabetic neuropathy, unspecified; E66.9 Obesity, unspecified; Z88.6 Allergy status to analgesic agent; Z91.048 Other nonmedicinal substance allergy status; Z88.8 Allergy status to other drugs, medicaments and biological substances; Z68.36 Body mass index [BMI] 36.0-36.9, adult; W10.9XXA Fall (on) (from) unspecified stairs and steps, initial encounter; W26.8XXA Contact with other sharp object(s), not elsewhere classified, initial encounter
CPT/HCPCS: 12034; 99284-25

== ENCOUNTER 2022-05-28 19:59 | Emergency (ER) | payer MEDICAID ==
[2022-05-28 20:36] LABS: TROPONIN I HIGH SENSITIVITY 14.2 pg/mL (<=60.3)
[2022-05-28 21:27] VITALS: BP 120/77; PULSE 82
== END 2022-05-28 21:38 | disposition home or self-care (01) ==
LOC: JP.ED 19:59
DX: J20.9 Acute bronchitis, unspecified (principal); I45.2 Bifascicular block; I48.91 Unspecified atrial fibrillation; I25.119 Atherosclerotic heart disease of native coronary artery with unspecified angina pectoris; I11.0 Hypertensive heart disease with heart failure; I50.9 Heart failure, unspecified; E78.00 Pure hypercholesterolemia, unspecified; J44.9 Chronic obstructive pulmonary disease, unspecified; K21.9 Gastro-esophageal reflux disease without esophagitis; M19.90 Unspecified osteoarthritis, unspecified site; E11.42 Type 2 diabetes mellitus with diabetic polyneuropathy; E66.9 Obesity, unspecified; Z68.35 Body mass index [BMI] 35.0-35.9, adult; Z88.8 Allergy status to other drugs, medicaments and biological substances; Z88.4 Allergy status to anesthetic agent; Z79.4 Long term (current) use of insulin; Z79.899 Other long term (current) drug therapy; Z79.01 Long term (current) use of anticoagulants
CPT/HCPCS: 36415; 71045; 80048; 82550; 82947; 84484; 85025; 86140; 93005; 99285

== ENCOUNTER 2022-06-15 07:40 | Emergency (ER) | payer MEDICAID ==
[2022-06-15 07:46] VITALS: PULSE 86
[2022-06-15] MEDS ORDERED: Ondansetron 4 MG/2 ML SDV IVPUSH ONE (07:48)
[2022-06-15] MEDS ORDERED: Sodium Chloride 0.9% 10 ML Syringe FLUSH PRN (08:12)
[2022-06-15] MEDS ORDERED: Sodium Chloride 0.9% 50 ML IV ONE (08:12)
[2022-06-15] MEDS ORDERED: Iopamidol 612 MG/ML 100 ML Bottle IV PRN (08:12)
[2022-06-15] MEDS ORDERED: Lactated Ringers 1,000 ML IV SCH (08:15)
[2022-06-15] MEDS ORDERED: LORazepam 2 MG/ML SDV IVPUSH ONE (08:18)
[2022-06-15 08:21] LABS: ESTIMATED GFR 68 mL/min (>60); TROPONIN I HIGH SENSITIVITY 10.9 pg/mL (<=60.3)
[2022-06-15 08:30] LABS: CORONAVIRUS COVID-19 NAA NEGATIVE (NEGATIVE)
[2022-06-15] MEDS ORDERED: LORazepam 2 MG/ML SDV IVPUSH PRN (10:21)
[2022-06-15 12:24] VITALS: BP 157/85
== END 2022-06-15 12:26 | disposition home or self-care (01) ==
LOC: JP.ED 07:40 → EEVIPCON 07:40 → JP.ED 12:26
DX: K52.9 Noninfective gastroenteritis and colitis, unspecified (principal); I25.10 Atherosclerotic heart disease of native coronary artery without angina pectoris; I11.0 Hypertensive heart disease with heart failure; I50.9 Heart failure, unspecified; J44.9 Chronic obstructive pulmonary disease, unspecified; E11.9 Type 2 diabetes mellitus without complications; E66.9 Obesity, unspecified; Z68.35 Body mass index [BMI] 35.0-35.9, adult; Z91.041 Radiographic dye allergy status; Z88.1 Allergy status to other antibiotic agents; Z88.8 Allergy status to other drugs, medicaments and biological substances; Z79.899 Other long term (current) drug therapy; Z79.4 Long term (current) use of insulin; Z79.01 Long term (current) use of anticoagulants; Z79.84 Long term (current) use of oral hypoglycemic drugs; Z90.49 Acquired absence of other specified parts of digestive tract; Z20.822 Contact with and (suspected) exposure to COVID-19
CPT/HCPCS: 0241U; 36415; 71045; 74177; 80053; 80307; 81001; 83605; 83690; 84145; 84484; 85025; 93005; 96361; 96374; 96375; 99285; J1790; J2060; J2405; J3490; J7120; Q9967; 93010; 99284

== ENCOUNTER 2022-07-01 18:04 | Emergency (ER) | payer MEDICAID ==
[2022-07-01 18:18] VITALS: BP 159/87; PULSE 92
[2022-07-01] MEDS ORDERED: Acetaminophen/HYDROcodone 325-5 MG Tab PO ONE (18:36)
[2022-07-01] MEDS ORDERED: Bacitracin Oint 1 GM U/D Packet TOP ONE (18:36)
[2022-07-01] MEDS ORDERED: Diphtheria,Pertussis(Acell),Tetanus Vaccine 0.5 ML Syringe IM ONE (18:36)
== END 2022-07-01 19:08 | disposition home or self-care (01) ==
LOC: JP.ED 18:04
DX: T23.252A Burn of second degree of left palm, initial encounter (principal); E11.42 Type 2 diabetes mellitus with diabetic polyneuropathy; I25.119 Atherosclerotic heart disease of native coronary artery with unspecified angina pectoris; I48.91 Unspecified atrial fibrillation; I11.0 Hypertensive heart disease with heart failure; I50.9 Heart failure, unspecified; E78.00 Pure hypercholesterolemia, unspecified; K21.9 Gastro-esophageal reflux disease without esophagitis; E66.9 Obesity, unspecified; Z91.048 Other nonmedicinal substance allergy status; Z88.8 Allergy status to other drugs, medicaments and biological substances; Z79.4 Long term (current) use of insulin; Z79.01 Long term (current) use of anticoagulants; Z79.84 Long term (current) use of oral hypoglycemic drugs; Z79.899 Other long term (current) drug therapy; Z86.73 Personal history of transient ischemic attack (TIA), and cerebral infarction without residual deficits; Z87.891 Personal history of nicotine dependence; Z68.33 Body mass index [BMI] 33.0-33.9, adult; Z23 Encounter for immunization; X19.XXXA Contact with other heat and hot substances, initial encounter
CPT/HCPCS: 16020; 90471; 90715; 99283; 99283-25; A9270-GY

== ENCOUNTER 2022-07-11 14:26 | Emergency (ER) | payer MEDICAID ==
[2022-07-11] MEDS ORDERED: Vancomycin 2 GM in Sodium Chloride 0.9% 500 ML IV ONE (15:32)
[2022-07-11] MEDS ORDERED: Sodium Chloride 0.9% 10 ML Syringe FLUSH PRN (15:34)
[2022-07-11] MEDS ORDERED: cefTAZidime Pentahydrate 2 GM in Sodium Chloride 0.9% 50 ML IV ONE (15:34)
[2022-07-11] MEDS ORDERED: metroNIDAZOLE/Normal Saline 500 MG in Premix Bag 1 BAG IV ONE (15:36)
[2022-07-11 16:06] VITALS: BP 115/41; PULSE 84
== END 2022-07-11 17:14 | disposition home or self-care (01) ==
LOC: JP.ED 14:26
DX: S93.124A Dislocation of metatarsophalangeal joint of right lesser toe(s), initial encounter (principal); E11.621 Type 2 diabetes mellitus with foot ulcer; N28.9 Disorder of kidney and ureter, unspecified; F10.20 Alcohol dependence, uncomplicated; I11.0 Hypertensive heart disease with heart failure; I50.9 Heart failure, unspecified; I25.10 Atherosclerotic heart disease of native coronary artery without angina pectoris; J44.9 Chronic obstructive pulmonary disease, unspecified; E11.9 Type 2 diabetes mellitus without complications; E78.00 Pure hypercholesterolemia, unspecified; E66.9 Obesity, unspecified; Z68.32 Body mass index [BMI] 32.0-32.9, adult; Z91.041 Radiographic dye allergy status; Z88.1 Allergy status to other antibiotic agents; Z91.048 Other nonmedicinal substance allergy status; Z79.4 Long term (current) use of insulin; Z79.01 Long term (current) use of anticoagulants; Z79.84 Long term (current) use of oral hypoglycemic drugs; Z90.49 Acquired absence of other specified parts of digestive tract
CPT/HCPCS: 36415; 73630-26-RT; 73630-RT; 80048; 85025; 85610; 86140; 87070; 87077; 87186; 87205; 96365; 96368; 99283-25; 99284; J0713; J3490

== ENCOUNTER 2022-09-06 11:38 | Inpatient (IN) | payer MEDICAID ==
[2022-09-06] MEDS ORDERED: Sodium Chloride 0.9% 1,000 ML IV STA (11:49)
[2022-09-06] MEDS ORDERED: fentaNYL 100 MCG/2 ML SDV IVPUSH ONE ×4 (11:52→15:55)
[2022-09-06] MEDS ORDERED: Ondansetron 4 MG/2 ML SDV IVPUSH ONE (11:52)
[2022-09-06] MEDS: Sodium Chloride 0.9% 10 ML Syringe FLUSH PRN ×2 (12:08→15:52)
[2022-09-06] MEDS ORDERED: Sodium Chloride 0.9% 50 ML IV ONE (12:15)
[2022-09-06] MEDS ORDERED: Sodium Chloride 0.9% 10 ML Syringe FLUSH ONE (12:15)
[2022-09-06] MEDS ORDERED: Iopamidol 612 MG/ML 100 ML Bottle IV ONE (12:15)
[2022-09-06 12:33] LABS: ESTIMATED GFR 68 mL/min (>60); TROPONIN I HIGH SENSITIVITY 11.3 pg/mL (<=60.3)
[2022-09-06] MEDS ORDERED: Alum Hydrox/Mag Hydrox/Simeth 15 ML, Lidocaine 2% 15 ML PO ONE ×2 (15:01)
[2022-09-06] MEDS ORDERED: HYDROmorphone 0.5 MG/0.5 ML Syringe IVPUSH ONE (15:40)
[2022-09-06] MEDS ORDERED: Pantoprazole 40 MG Vial IVPUSH ONE (15:43)
[2022-09-06 16:20] LABS: CORONAVIRUS COVID-19 NAA NEGATIVE (NEGATIVE)
[2022-09-06] MEDS ORDERED: 50% Dextrose in Water 50 ML Syringe IV PRN (16:36)
[2022-09-06] MEDS ORDERED: Labetalol 100 MG/20 ML MDV IV ONE (16:40)
[2022-09-06] MEDS: Insulin Lispro 100 Unit/ML 3 ML KwikPen SUBCUT SCH ×2 (17:09→21:07)
[2022-09-06] MEDS ORDERED: Bisacodyl 5 MG Tab PO STA (17:23)
[2022-09-06] MEDS ORDERED: Albuterol 90 MCG/6.7 GM Inhaler INH PRN (17:50)
[2022-09-06] MEDS ORDERED: Aluminum Hydroxide/Magnesium Hydroxide/Simethicone Susp 30 ML Cup PO PRN (17:50)
[2022-09-06] MEDS ORDERED: Glucagon,Human Recombinant 1 MG Vial IM PRN (17:50)
[2022-09-06] MEDS ORDERED: 50% Dextrose in Water 50 ML Syringe IVPUSH PRN (17:50)
[2022-09-06] MEDS ORDERED: Warfarin 5 MG Tab PO SCH (17:50)
[2022-09-06] MEDS ORDERED: Polyethylene Glycol 3350 Powder 238 GM Bot PO ONE (17:50)
[2022-09-06] MEDS: Morphine 2 MG/ML SYRINGE IVPUSH PRN ×2 (17:55→22:00)
[2022-09-06] MEDS ORDERED: Ondansetron 4 MG/2 ML SDV IVPUSH PRN (18:07)
[2022-09-06] MEDS: metFORMIN 500 MG Tab PO SCH (18:15)
[2022-09-06] MEDS: Ondansetron 4 MG Tab.DIS PO PRN (18:21)
[2022-09-06] MEDS ORDERED: LORazepam 2 MG/ML SDV IVPUSH PRN (19:35)
[2022-09-06] MEDS: Sodium Chloride 0.9% 1,000 ML IV SCH (20:02)
[2022-09-06] MEDS ORDERED: Formoterol/Mometasone 200-5 MCG 8.8 GM Inhaler IH SCH (21:00)
[2022-09-06] MEDS: Calcium Carbonate/Vitamin D3 1500 MG-400 Units Tab PO SCH (21:38)
[2022-09-06] MEDS: Ferrous Sulfate 325 MG Tab PO SCH (21:38)
[2022-09-06] MEDS: Gabapentin 300 MG Cap PO SCH (21:38)
[2022-09-06] MEDS: atorvaSTATin 20 MG Tab PO SCH (21:38)
[2022-09-06] MEDS: hydrOXYzine HCl 25 MG Tab PO SCH (21:38)
[2022-09-07] MEDS: Sodium Chloride 0.9% 1,000 ML IV SCH ×3 (02:55→23:11)
[2022-09-07] MEDS: Morphine 2 MG/ML SYRINGE IVPUSH PRN ×3 (05:17→12:04)
[2022-09-07] MEDS: hydrOXYzine HCl 25 MG Tab PO SCH ×4 (05:17→21:09)
[2022-09-07 05:36] LABS: ESTIMATED GFR 85 mL/min (>60)
[2022-09-07] MEDS: Insulin Lispro 100 Unit/ML 3 ML KwikPen SUBCUT SCH ×4 (08:28→20:59)
[2022-09-07] MEDS: Calcium Carbonate/Vitamin D3 1500 MG-400 Units Tab PO SCH ×2 (08:55→21:09)
[2022-09-07] MEDS: Loratadine 10 MG Tab.DIS PO SCH (08:55)
[2022-09-07] MEDS: Magnesium Oxide 400 MG Tab PO SCH (08:55)
[2022-09-07] MEDS: Ferrous Sulfate 325 MG Tab PO SCH ×2 (08:55→21:09)
[2022-09-07] MEDS: Gabapentin 300 MG Cap PO SCH ×3 (08:55→21:09)
[2022-09-07] MEDS: Cyanocobalamin (Vitamin B12) 1,000 MCG Tab PO SCH (08:55)
[2022-09-07] MEDS: Pantoprazole 40 MG Tab.CR PO SCH (08:56)
[2022-09-07] MEDS: metFORMIN 500 MG Tab PO SCH (09:02)
[2022-09-07] MEDS: amLODIPine 5 MG Tab PO SCH (09:02)
[2022-09-07] MEDS: Hydrochlorothiazide 25 MG Tab PO SCH (09:02)
[2022-09-07] MEDS: Metoprolol Tartrate 50 MG Tab PO SCH (09:03)
[2022-09-07] MEDS: Ondansetron 4 MG Tab.DIS PO PRN ×2 (09:06→19:39)
[2022-09-07] MEDS: Formoterol/Mometasone 200-5 MCG 8.8 GM Inhaler IH SCH ×2 (09:31→21:09)
[2022-09-07] MEDS ORDERED: Propofol 200 MG/20 ML SDV ONE (11:04)
[2022-09-07] MEDS ORDERED: fentaNYL 50 MCG/ML SDV ONE (11:04)
[2022-09-07] MEDS ORDERED: LORazepam 0.5 MG Tab PO PRN (12:26)
[2022-09-07] MEDS ORDERED: Magnesium Sulfate/Water 2 GM in Premix Bag 1 BAG IV ONE (13:00)
[2022-09-07] MEDS: Acetaminophen/HYDROcodone 325-5 MG Tab PO PRN ×2 (13:28→19:39)
[2022-09-07] MEDS: atorvaSTATin 20 MG Tab PO SCH (21:09)
[2022-09-07] MEDS: Insulin Glargine,Human Rec. Analog 100 Units/ML 3 ML Pen SUBCUT SCH (21:12)
[2022-09-08] MEDS: Acetaminophen/HYDROcodone 325-5 MG Tab PO PRN ×3 (04:06→20:49)
[2022-09-08] MEDS: hydrOXYzine HCl 25 MG Tab PO SCH ×4 (05:22→21:36)
[2022-09-08] MEDS: Formoterol/Mometasone 200-5 MCG 8.8 GM Inhaler IH SCH ×2 (07:12→21:33)
[2022-09-08] MEDS: Sodium Chloride 0.9% 1,000 ML IV SCH (07:13)
[2022-09-08] MEDS: Pantoprazole 40 MG Tab.CR PO SCH (07:16)
[2022-09-08] MEDS: Insulin Lispro 100 Unit/ML 3 ML KwikPen SUBCUT SCH ×4 (08:01→21:31)
[2022-09-08] MEDS: Ferrous Sulfate 325 MG Tab PO SCH ×2 (08:03→21:37)
[2022-09-08] MEDS: Gabapentin 300 MG Cap PO SCH ×3 (08:03→21:36)
[2022-09-08] MEDS: Ondansetron 4 MG Tab.DIS PO PRN (08:03)
[2022-09-08] MEDS: Cyanocobalamin (Vitamin B12) 1,000 MCG Tab PO SCH (08:04)
[2022-09-08] MEDS: Calcium Carbonate/Vitamin D3 1500 MG-400 Units Tab PO SCH ×2 (08:04→21:37)
[2022-09-08] MEDS: Loratadine 10 MG Tab.DIS PO SCH (08:05)
[2022-09-08] MEDS: Magnesium Oxide 400 MG Tab PO SCH (08:05)
[2022-09-08] MEDS: amLODIPine 5 MG Tab PO SCH (08:05)
[2022-09-08] MEDS: Hydrochlorothiazide 25 MG Tab PO SCH (08:05)
[2022-09-08] MEDS: Metoprolol Tartrate 50 MG Tab PO SCH (08:05)
[2022-09-08] MEDS: Metoclopramide 10 MG Tab PO SCH ×2 (11:40→15:06)
[2022-09-08] MEDS ORDERED: Acetaminophen 325 MG Tab PO PRN (15:14)
[2022-09-08] MEDS ORDERED: Melatonin 3 MG Tab PO SCH (21:00)
[2022-09-08] MEDS: Insulin Glargine,Human Rec. Analog 100 Units/ML 3 ML Pen SUBCUT SCH (21:35)
[2022-09-08] MEDS: atorvaSTATin 20 MG Tab PO SCH (21:36)
[2022-09-09 05:12] LABS: ESTIMATED GFR 62 mL/min (>60)
[2022-09-09] MEDS: hydrOXYzine HCl 25 MG Tab PO SCH ×2 (05:41→11:21)
[2022-09-09] MEDS: Acetaminophen/HYDROcodone 325-5 MG Tab PO PRN (05:43)
[2022-09-09] MEDS: Formoterol/Mometasone 200-5 MCG 8.8 GM Inhaler IH SCH (07:03)
[2022-09-09] MEDS: Insulin Lispro 100 Unit/ML 3 ML KwikPen SUBCUT SCH ×2 (07:41→11:13)
[2022-09-09] MEDS: Pantoprazole 40 MG Tab.CR PO SCH (07:42)
[2022-09-09] MEDS: Metoclopramide 10 MG Tab PO SCH ×2 (07:42→11:21)
[2022-09-09] MEDS: Cyanocobalamin (Vitamin B12) 1,000 MCG Tab PO SCH (08:22)
[2022-09-09] MEDS: Metoprolol Tartrate 50 MG Tab PO SCH (08:23)
[2022-09-09] MEDS: Gabapentin 300 MG Cap PO SCH (08:24)
[2022-09-09] MEDS: Calcium Carbonate/Vitamin D3 1500 MG-400 Units Tab PO SCH (08:25)
[2022-09-09] MEDS: Ferrous Sulfate 325 MG Tab PO SCH (08:25)
[2022-09-09] MEDS: Magnesium Oxide 400 MG Tab PO SCH (08:25)
[2022-09-09] MEDS: amLODIPine 5 MG Tab PO SCH (08:26)
[2022-09-09] MEDS: Loratadine 10 MG Tab.DIS PO SCH (08:26)
[2022-09-09] MEDS: Hydrochlorothiazide 25 MG Tab PO SCH (08:26)
[2022-09-09 11:05] VITALS: PULSE 83
[2022-09-09 11:19] VITALS: BP 142/86
== END 2022-09-09 11:55 | disposition home or self-care (01) | DRG 74 ==
LOC: JP.ED 11:38 → JP.MS 16:28
PROVIDERS: ADMIT Student in an Organized Health Care Education/Training Program; ATTEND Internal Medicine
PROC: 0DB48ZX Excision of Esophagogastric Junction, Via Natural or Artificial Opening Endoscopic, Diagnostic (ICD-10-PCS; principal; 2022-09-06)
DX: E11.43 Type 2 diabetes mellitus with diabetic autonomic (poly)neuropathy (principal); I13.0 Hypertensive heart and chronic kidney disease with heart failure and stage 1 through stage 4 chronic kidney disease, or unspecified chronic kidney disease; K31.84 Gastroparesis; I48.0 Paroxysmal atrial fibrillation; E11.42 Type 2 diabetes mellitus with diabetic polyneuropathy; Z79.4 Long term (current) use of insulin; I25.10 Atherosclerotic heart disease of native coronary artery without angina pectoris; K21.9 Gastro-esophageal reflux disease without esophagitis; I50.9 Heart failure, unspecified; E11.22 Type 2 diabetes mellitus with diabetic chronic kidney disease; J44.9 Chronic obstructive pulmonary disease, unspecified; N18.9 Chronic kidney disease, unspecified; M19.90 Unspecified osteoarthritis, unspecified site; F41.0 Panic disorder [episodic paroxysmal anxiety]; F32.A Depression, unspecified; D50.9 Iron deficiency anemia, unspecified; F10.21 Alcohol dependence, in remission; E78.5 Hyperlipidemia, unspecified; Z88.5 Allergy status to narcotic agent; Z88.8 Allergy status to other drugs, medicaments and biological substances; Z79.01 Long term (current) use of anticoagulants; Z79.899 Other long term (current) drug therapy; Z86.73 Personal history of transient ischemic attack (TIA), and cerebral infarction without residual deficits; Z90.49 Acquired absence of other specified parts of digestive tract; Z95.2 Presence of prosthetic heart valve
CPT/HCPCS: 0241U; 36415; 71045; 71045-26; 74177; 80048; 80053; 82947; 83605; 83690; 83735; 84484; 85025; 85027; 85610; 86140; 88305; 93005; 93010; 94640; 99222; 99232; 99238; 99284; A9270-GY; C9113; J1815; J1815-GY; J2060; J2270; J2405; J2704; J3010; J3475; J3490; J7030; Q0162; Q9967

== ENCOUNTER 2022-10-05 11:33 | Emergency (ER) | payer MEDICAID ==
[2022-10-05] MEDS ORDERED: HYDROmorphone 1 MG/ML Syringe IM ONE (13:03)
[2022-10-05 15:08] VITALS: BP 135/78; PULSE 78
== END 2022-10-05 15:15 | disposition home or self-care (01) ==
LOC: JP.ED 11:33
DX: R10.13 Epigastric pain (principal); J44.9 Chronic obstructive pulmonary disease, unspecified; E78.00 Pure hypercholesterolemia, unspecified; I10 Essential (primary) hypertension; E11.9 Type 2 diabetes mellitus without complications; E66.9 Obesity, unspecified; Z68.33 Body mass index [BMI] 33.0-33.9, adult; Z91.048 Other nonmedicinal substance allergy status; Z88.8 Allergy status to other drugs, medicaments and biological substances; Z79.4 Long term (current) use of insulin; Z79.01 Long term (current) use of anticoagulants; Z79.899 Other long term (current) drug therapy
CPT/HCPCS: 36415; 80048; 84484; 85025; 96372; 99283; 99284; J1170

== ENCOUNTER 2023-01-16 15:32 | Emergency (ER) | payer MEDICAID ==
[2023-01-16 15:44] VITALS: BP 97/66; PULSE 66
[2023-01-16] MEDS ORDERED: Acetaminophen/HYDROcodone 325-5 MG Tab PO ONE (16:14)
== END 2023-01-16 17:05 | disposition home or self-care (01) ==
LOC: JP.ED 15:32
DX: S46.211A Strain of muscle, fascia and tendon of other parts of biceps, right arm, initial encounter (principal); I11.0 Hypertensive heart disease with heart failure; I50.9 Heart failure, unspecified; I48.91 Unspecified atrial fibrillation; E78.00 Pure hypercholesterolemia, unspecified; I25.10 Atherosclerotic heart disease of native coronary artery without angina pectoris; J44.9 Chronic obstructive pulmonary disease, unspecified; K21.9 Gastro-esophageal reflux disease without esophagitis; E11.9 Type 2 diabetes mellitus without complications; E66.9 Obesity, unspecified; Z88.8 Allergy status to other drugs, medicaments and biological substances; Z88.5 Allergy status to narcotic agent; Z88.6 Allergy status to analgesic agent; Z91.048 Other nonmedicinal substance allergy status; Z79.899 Other long term (current) drug therapy; Z79.84 Long term (current) use of oral hypoglycemic drugs; Z79.4 Long term (current) use of insulin; Z79.01 Long term (current) use of anticoagulants; Z68.30 Body mass index [BMI] 30.0-30.9, adult; X50.0XXA Overexertion from strenuous movement or load, initial encounter
CPT/HCPCS: 73030; 99283; A9270

== ENCOUNTER 2023-06-16 16:26 | Emergency (ER) | payer MEDICAID ==
[2023-06-16 18:11] LABS: BASOPHILS ABSOLUTE AUTO 0.04 K/uL (0.00-0.10); BASOPHILS PERCENT AUTO 0.4 % (0.1-1.3); EOSINOPHILS ABSOLUTE AUTO 0.09 K/uL (0.00-0.40); EOSINOPHILS PERCENT AUTO 0.8 % (0.0-5.4); HEMOGLOBIN 11.7 g/dL (12.9-16.9); IMMATURE GRAN ABSOLUTE AUTO 0.03 K/uL (0.00-0.23); IMMATURE GRAN PERCENT AUTO 0.3 % (0.0-0.7); LYMPHOCYTES ABSOLUTE AUTO 1.24 K/uL (0.8-3.3); LYMPHOCYTES PERCENT AUTO 11.3 % (11.4-47.7); MEAN CORPUSCULAR HEMOGLOBIN 27.3 pg (31.6-35.5); MEAN CORPUSCULAR HGB CONC 33.4 g/dL (31.6-35.5); MEAN CORPUSCULAR VOLUME 81.6 fL (81.4-99.0); MONOCYTES ABSOLUTE AUTO 0.54 K/uL (0.20-0.90); MONOCYTES PERCENT AUTO 4.9 % (3.3-12.6); NEUTROPHILS ABSOLUTE AUTO 9.07 K/uL (1.0-7.6); NEUTROPHILS PERCENT AUTO 82.3 % (40.0-78.1); PLATELET COUNT,PLT 276 K/uL (130-375); RED BLOOD CELL COUNT 4.29 M/uL (4.14-5.76)
[2023-06-16 18:29] LABS: ANION GAP 12.3 mmol/L (5.0-14.0); C-REACTIVE PROTEIN 0.53 mg/dL (<0.50); CALCIUM 8.6 mg/dL (8.5-10.1); CREATININE 1.3 mg/dL (0.8-1.3); EST CRCL DRUG DOSING (CG) 61.14 mL/min; POTASSIUM,K 4.3 mmol/L (3.6-5.2)
[2023-06-16 18:51] LABS: CORONAVIRUS COVID-19 NAA NEGATIVE (NEGATIVE); INFLUENZA A NAA NEGATIVE (NEGATIVE); INFLUENZA B NAA NEGATIVE (NEGATIVE); RESPIRATORY SYNCYTIAL VIR NAA NEGATIVE (NEGATIVE)
[2023-06-16 19:16] VITALS: BP 126/80; PULSE 90
== END 2023-06-16 20:28 | disposition home or self-care (01) ==
LOC: JP.ED 16:26
DX: E11.621 Type 2 diabetes mellitus with foot ulcer (principal); I11.0 Hypertensive heart disease with heart failure; I50.9 Heart failure, unspecified; I25.10 Atherosclerotic heart disease of native coronary artery without angina pectoris; E78.00 Pure hypercholesterolemia, unspecified; J44.9 Chronic obstructive pulmonary disease, unspecified; K21.9 Gastro-esophageal reflux disease without esophagitis; E11.40 Type 2 diabetes mellitus with diabetic neuropathy, unspecified; Z87.891 Personal history of nicotine dependence; Z88.5 Allergy status to narcotic agent; Z88.6 Allergy status to analgesic agent; Z91.048 Other nonmedicinal substance allergy status; Z91.041 Radiographic dye allergy status; Z79.4 Long term (current) use of insulin; Z79.01 Long term (current) use of anticoagulants; Z79.899 Other long term (current) drug therapy
CPT/HCPCS: 0241U; 36415; 80048; 83605; 85025; 86140; 99283

== ENCOUNTER 2024-07-25 11:41 | Emergency (ER) | payer MEDICARE, MEDICAID ==
[2024-07-25 13:23] LABS: APPEARANCE,URINE CLEAR (CLEAR); BILIRUBIN,URINE NEGATIVE (NEGATIVE); COLOR,URINE YELLOW (YELLOW); GLUCOSE,URINE 100 mg/dL (NEGATIVE); KETONES,URINE NEGATIVE (NEGATIVE); LEUKOCYTE ESTERASE,URINE NEGATIVE (NEGATIVE); NITRITE,URINE NEGATIVE (NEGATIVE); OCCULT BLOOD,URINE LARGE (NEGATIVE); PH,URINE 6.5 (5.0-8.0); PROTEIN,URINE >=300 mg/dL (NEGATIVE); UROBILINOGEN,URINE 0.2 EU/dL (0.2-1.0)
[2024-07-25 13:27] LABS: BASOPHILS ABSOLUTE AUTO 0.04 K/uL (0.00-0.10); BASOPHILS PERCENT AUTO 0.4 % (0.1-1.3); EOSINOPHILS PERCENT AUTO 1.1 % (0.0-5.4); HEMATOCRIT 35.9 % (38.4-49.7); HEMOGLOBIN 11.7 g/dL (12.9-16.9); IMMATURE GRAN ABSOLUTE AUTO 0.04 K/uL (0.00-0.23); IMMATURE GRAN PERCENT AUTO 0.4 % (0.0-0.7); LYMPHOCYTES ABSOLUTE AUTO 1.46 K/uL (0.8-3.3); LYMPHOCYTES PERCENT AUTO 15.6 % (11.4-47.7); MEAN CORPUSCULAR HEMOGLOBIN 26.3 pg (31.6-35.5); MEAN CORPUSCULAR HGB CONC 32.6 g/dL (31.6-35.5); MEAN CORPUSCULAR VOLUME 80.7 fL (81.4-99.0); MONOCYTES ABSOLUTE AUTO 0.43 K/uL (0.20-0.90); MONOCYTES PERCENT AUTO 4.6 % (3.3-12.6); NEUTROPHILS ABSOLUTE AUTO 7.28 K/uL (1.0-7.6); NEUTROPHILS PERCENT AUTO 77.9 % (40.0-78.1); PLATELET COUNT,PLT 349 K/uL (130-375); RED BLOOD CELL COUNT 4.45 M/uL (4.14-5.76); WHITE BLOOD CELL COUNT,WBC 9.4 K/uL (3.2-11.0)
[2024-07-25 13:33] LABS: AMORPHOUS SEDIMENT,URINE NOT SEEN; BACTERIA,URINE FEW; EPITHELIAL CELLS,URINE FEW; MUCUS,URINE FEW; WBC,URINE 0-5 (0-5)
[2024-07-25] MEDS: oxyCODONE 5 MG Tab PO ONE (13:44)
[2024-07-25 13:45] LABS: INR 1.8; PROTHROMBIN TIME 18.4 sec (9.2-10.6)
[2024-07-25 13:51] LABS: A/G RATIO 0.8 (1.2-2.2); ALANINE AMINOTRANSFERASE,ALT 31 U/L (12-78); ALBUMIN 3.2 g/dL (3.4-5.0); ALKALINE PHOSPHATASE 161 U/L (46-116); ASPARTATE AMNIOTRANSFERASE,AST 24 U/L (15-37); BILIRUBIN TOTAL 0.6 mg/dL (0.2-1.0); BLOOD UREA NITROGEN,BUN 16 mg/dL (7-18); CALCIUM 8.8 mg/dL (8.5-10.1); CARBON DIOXIDE,CO2 27 mmol/L (21-32); CHLORIDE,CL 101 mmol/L (100-108); CREATININE 1.6 mg/dL (0.8-1.3); ESTIMATED GFR 48 mL/min (>60); GLUCOSE RANDOM 169 mg/dL (74-106); POTASSIUM,K 4.6 mmol/L (3.6-5.2); PROTEIN TOTAL,TP 7.3 g/dL (6.4-8.2); SODIUM,NA 135 mmol/L (140-148)
[2024-07-25 13:57] LABS: ANION GAP 11.6 mmol/L (5.0-14.0)
[2024-07-25 14:59] VITALS: BP 139/90; PULSE 90
== END 2024-07-25 16:42 | disposition home or self-care (01) ==
LOC: JP.ED 11:41
DX: R10.9 Unspecified abdominal pain (principal); R31.29 Other microscopic hematuria; I11.0 Hypertensive heart disease with heart failure; I50.9 Heart failure, unspecified; I25.10 Atherosclerotic heart disease of native coronary artery without angina pectoris; J44.89 Other specified chronic obstructive pulmonary disease; K21.9 Gastro-esophageal reflux disease without esophagitis; E11.9 Type 2 diabetes mellitus without complications; E66.9 Obesity, unspecified; Z68.43 Body mass index [BMI] 50.0-59.9, adult; Z90.49 Acquired absence of other specified parts of digestive tract; Z88.8 Allergy status to other drugs, medicaments and biological substances; Z79.899 Other long term (current) drug therapy; Z79.4 Long term (current) use of insulin; Z79.01 Long term (current) use of anticoagulants; Z86.16 Personal history of COVID-19
CPT/HCPCS: 36415; 74176; 80053; 81001; 83605; 85025; 85610; 99284; A9270

== ENCOUNTER 2024-07-28 12:21 | Emergency (ER) | payer MEDICARE, MEDICAID ==
[2024-07-28 16:23] LABS: BASOPHILS ABSOLUTE AUTO 0.04 K/uL (0.00-0.10); BASOPHILS PERCENT AUTO 0.4 % (0.1-1.3); EOSINOPHILS ABSOLUTE AUTO 0.01 K/uL (0.00-0.40); EOSINOPHILS PERCENT AUTO 0.1 % (0.0-5.4); HEMATOCRIT 37.9 % (38.4-49.7); HEMOGLOBIN 12.4 g/dL (12.9-16.9); IMMATURE GRAN ABSOLUTE AUTO 0.03 K/uL (0.00-0.23); IMMATURE GRAN PERCENT AUTO 0.3 % (0.0-0.7); LYMPHOCYTES ABSOLUTE AUTO 0.78 K/uL (0.8-3.3); LYMPHOCYTES PERCENT AUTO 7.7 % (11.4-47.7); MEAN CORPUSCULAR HEMOGLOBIN 26.2 pg (31.6-35.5); MEAN CORPUSCULAR HGB CONC 32.7 g/dL (31.6-35.5); MEAN CORPUSCULAR VOLUME 80.1 fL (81.4-99.0); MONOCYTES ABSOLUTE AUTO 0.41 K/uL (0.20-0.90); MONOCYTES PERCENT AUTO 4.1 % (3.3-12.6); NEUTROPHILS ABSOLUTE AUTO 8.84 K/uL (1.0-7.6); NEUTROPHILS PERCENT AUTO 87.4 % (40.0-78.1); PLATELET COUNT,PLT 375 K/uL (130-375); RED BLOOD CELL COUNT 4.73 M/uL (4.14-5.76); WHITE BLOOD CELL COUNT,WBC 10.1 K/uL (3.2-11.0)
[2024-07-28] MEDS: Ondansetron 4 MG Tab.DIS PO ONE (16:28)
[2024-07-28] MEDS: oxyCODONE 5 MG Tab PO ONE (16:38)
[2024-07-28 16:44] LABS: A/G RATIO 0.8 (1.2-2.2); ALANINE AMINOTRANSFERASE,ALT 24 U/L (12-78); ALBUMIN 3.6 g/dL (3.4-5.0); ALKALINE PHOSPHATASE 177 U/L (46-116); ASPARTATE AMNIOTRANSFERASE,AST 24 U/L (15-37); BILIRUBIN TOTAL 0.7 mg/dL (0.2-1.0); BLOOD UREA NITROGEN,BUN 16 mg/dL (7-18); CARBON DIOXIDE,CO2 24 mmol/L (21-32); CHLORIDE,CL 102 mmol/L (100-108); CREATININE 1.5 mg/dL (0.8-1.3); EST CRCL DRUG DOSING (CG) 52.29 mL/min; ESTIMATED GFR 51 mL/min (>60); GLUCOSE RANDOM 201 mg/dL (74-106); INR 1.8; MAGNESIUM 1.6 mg/dL (1.8-2.4); POTASSIUM,K 4.5 mmol/L (3.6-5.2); PRO B-TYPE NATRIUR PEPT,BNPPRO 1285 pg/mL (5-125); PROTEIN TOTAL,TP 8.1 g/dL (6.4-8.2); PROTHROMBIN TIME 17.7 sec (9.2-10.6); SODIUM,NA 135 mmol/L (140-148); TROPONIN I HIGH SENSITIVITY 8.5 pg/mL (<=60.3)
[2024-07-28 16:45] LABS: ANION GAP 13.5 mmol/L (5.0-14.0)
[2024-07-28] MEDS: Iopamidol 755 Mg/ML 100 ML Bottle IV SCH (17:48)
[2024-07-28] MEDS: Sodium Chloride 0.9% 80 ML IV SCH (17:48)
[2024-07-28 18:55] VITALS: BP 156/92; PULSE 79
== END 2024-07-28 19:09 | disposition home or self-care (01) ==
LOC: JP.ED 12:21
DX: E11.43 Type 2 diabetes mellitus with diabetic autonomic (poly)neuropathy (principal); K31.84 Gastroparesis; I11.0 Hypertensive heart disease with heart failure; I50.9 Heart failure, unspecified; I25.10 Atherosclerotic heart disease of native coronary artery without angina pectoris; E11.40 Type 2 diabetes mellitus with diabetic neuropathy, unspecified; I48.91 Unspecified atrial fibrillation; J44.89 Other specified chronic obstructive pulmonary disease; Z86.73 Personal history of transient ischemic attack (TIA), and cerebral infarction without residual deficits; Z90.49 Acquired absence of other specified parts of digestive tract; Z87.891 Personal history of nicotine dependence; Z88.8 Allergy status to other drugs, medicaments and biological substances; Z91.048 Other nonmedicinal substance allergy status; Z88.5 Allergy status to narcotic agent; Z79.4 Long term (current) use of insulin; Z79.01 Long term (current) use of anticoagulants; Z79.51 Long term (current) use of inhaled steroids; Z79.899 Other long term (current) drug therapy; Z79.84 Long term (current) use of oral hypoglycemic drugs
CPT/HCPCS: 36415; 71045; 71275; 80053; 83605; 83735; 83880; 84484; 85025; 85379; 85610; 87428; 99285; A9270; Q0162; Q9967

== ENCOUNTER 2024-11-10 11:00 | Emergency (ER) | payer MEDICARE, MEDICAID ==
[2024-11-10] MEDS: Ondansetron 4 MG/2 ML SDV IVPUSH ONE (11:26)
[2024-11-10] MEDS: Sodium Chloride 0.9% 1,000 ML IV ONE (11:29)
[2024-11-10] MEDS: Sucralfate 1 GM Tab PO ONE (11:33)
[2024-11-10 11:35] LABS: BASOPHILS ABSOLUTE AUTO 0.03 K/uL (0.00-0.10); BASOPHILS PERCENT AUTO 0.3 % (0.1-1.3); EOSINOPHILS ABSOLUTE AUTO 0.04 K/uL (0.00-0.40); EOSINOPHILS PERCENT AUTO 0.3 % (0.0-5.4); HEMATOCRIT 33.3 % (38.4-49.7); HEMOGLOBIN 10.9 g/dL (12.9-16.9); IMMATURE GRAN ABSOLUTE AUTO 0.06 K/uL (0.00-0.23); IMMATURE GRAN PERCENT AUTO 0.5 % (0.0-0.7); LYMPHOCYTES ABSOLUTE AUTO 0.81 K/uL (0.8-3.3); LYMPHOCYTES PERCENT AUTO 6.9 % (11.4-47.7); MEAN CORPUSCULAR HGB CONC 32.7 g/dL (31.6-35.5); MEAN CORPUSCULAR VOLUME 82.4 fL (81.4-99.0); MONOCYTES ABSOLUTE AUTO 0.58 K/uL (0.20-0.90); MONOCYTES PERCENT AUTO 4.9 % (3.3-12.6); NEUTROPHILS ABSOLUTE AUTO 10.29 K/uL (1.0-7.6); NEUTROPHILS PERCENT AUTO 87.1 % (40.0-78.1); PLATELET COUNT,PLT 249 K/uL (130-375); RED BLOOD CELL COUNT 4.04 M/uL (4.14-5.76); WHITE BLOOD CELL COUNT,WBC 11.8 K/uL (3.2-11.0)
[2024-11-10 12:04] LABS: A/G RATIO 0.7 (1.2-2.2); ALANINE AMINOTRANSFERASE,ALT 28 U/L (12-78); ALKALINE PHOSPHATASE 159 U/L (46-116); ASPARTATE AMNIOTRANSFERASE,AST 34 U/L (15-37); BILIRUBIN TOTAL 0.7 mg/dL (0.2-1.0); BLOOD UREA NITROGEN,BUN 17 mg/dL (7-18); CALCIUM 8.9 mg/dL (8.5-10.1); CARBON DIOXIDE,CO2 27 mmol/L (21-32); CHLORIDE,CL 101 mmol/L (100-108); CREATININE 1.5 mg/dL (0.8-1.3); EST CRCL DRUG DOSING (CG) 52.29 mL/min; ESTIMATED GFR 51 mL/min (>60); GLUCOSE RANDOM 251 mg/dL (74-106); POTASSIUM,K 4.2 mmol/L (3.6-5.2); PROTEIN TOTAL,TP 7.3 g/dL (6.4-8.2); SODIUM,NA 136 mmol/L (140-148)
[2024-11-10 12:08] LABS: ANION GAP 12.2 mmol/L (5.0-14.0)
[2024-11-10 12:20] LABS: APPEARANCE,URINE CLEAR (CLEAR); BILIRUBIN,URINE NEGATIVE (NEGATIVE); COLOR,URINE YELLOW (YELLOW); GLUCOSE,URINE 500 mg/dL (NEGATIVE); KETONES,URINE NEGATIVE (NEGATIVE); LEUKOCYTE ESTERASE,URINE NEGATIVE (NEGATIVE); NITRITE,URINE NEGATIVE (NEGATIVE); OCCULT BLOOD,URINE SMALL (NEGATIVE); PROTEIN,URINE >=300 mg/dL (NEGATIVE); UROBILINOGEN,URINE 0.2 EU/dL (0.2-1.0)
[2024-11-10 12:21] LABS: AMORPHOUS SEDIMENT,URINE NOT SEEN; BACTERIA,URINE NOT SEEN; EPITHELIAL CELLS,URINE RARE; MUCUS,URINE NOT SEEN; RBC,URINE 0-5 (0-5); WBC,URINE 0-5 (0-5)
[2024-11-10] MEDS: fentaNYL 50 MCG/ML SDV IVPUSH ONE ×3 (12:43→20:16)
[2024-11-10] MEDS: Sodium Chloride 0.9% 100 ML IV ONE (12:56)
[2024-11-10] MEDS: Sodium Chloride 0.9% 10 ML Syringe FLUSH ONE (12:57)
[2024-11-10] MEDS: Iopamidol 755 Mg/ML 100 ML Bottle IV ONE (12:57)
[2024-11-10 13:35] LABS: INR 2.3
[2024-11-10] MEDS ORDERED: Heparin Sodium/D5W 25,000 UNITS/500 ML BAG IV SCH (13:45)
[2024-11-10] MEDS: Heparin Sodium/D5W 25,000 UNITS/500 ML BAG IV SCH (13:48)
[2024-11-10] MEDS: Heparin Sodium 5,000 Units/ML Vial IVPUSH ONE (13:53)
[2024-11-10] MEDS: Nitroglycerin/D5W 25 MG/250 ML BOTTLE IV SCH (13:54)
[2024-11-10] MEDS: Heparin Sodium 5,000 Units/ML Vial ONE (13:55)
[2024-11-10] MEDS: diphenhydrAMINE 50 MG/ML SDV IVPUSH ONE (16:04)
[2024-11-10] MEDS: droPERidol 5 MG/2 ML SDV IVPUSH ONE (16:05)
[2024-11-10] MEDS ORDERED: Naloxone 0.4 MG/ML SDV IVPUSH PRN (19:52)
[2024-11-10 20:51] VITALS: BP 137/90; PULSE 94
== END 2024-11-10 21:30 ==
LOC: JP.ED 11:00
DX: R07.9 Chest pain, unspecified (principal); R10.13 Epigastric pain; R79.89 Other specified abnormal findings of blood chemistry; E86.0 Dehydration; I48.91 Unspecified atrial fibrillation; I25.10 Atherosclerotic heart disease of native coronary artery without angina pectoris; I11.0 Hypertensive heart disease with heart failure; I50.9 Heart failure, unspecified; E78.00 Pure hypercholesterolemia, unspecified; J44.89 Other specified chronic obstructive pulmonary disease; K21.9 Gastro-esophageal reflux disease without esophagitis; E11.9 Type 2 diabetes mellitus without complications; Z90.49 Acquired absence of other specified parts of digestive tract; Z95.2 Presence of prosthetic heart valve; Z88.5 Allergy status to narcotic agent; Z88.8 Allergy status to other drugs, medicaments and biological substances; Z91.048 Other nonmedicinal substance allergy status; Z79.4 Long term (current) use of insulin; Z79.01 Long term (current) use of anticoagulants; Z79.51 Long term (current) use of inhaled steroids; Z79.899 Other long term (current) drug therapy
CPT/HCPCS: 36415; 71045; 71275; 80053; 80307; 81001; 83690; 83880; 84484; 85025; 85610; 85730; 93010; 96361; 96365; 96366; 96368; 96375; 96376; 99284; 99285; A9270; J1200; J1644; J1790; J2305; J2405; J3010; J7030; Q9967

== ENCOUNTER 2025-02-23 19:05 | Emergency (ER) | payer MEDICARE, MEDICAID ==
[2025-02-23 20:40] VITALS: BP 151/68
[2025-02-23 21:21] LABS: BASOPHILS ABSOLUTE AUTO 0.04 K/uL (0.00-0.10); BASOPHILS PERCENT AUTO 0.4 % (0.1-1.3); EOSINOPHILS ABSOLUTE AUTO 0.05 K/uL (0.00-0.40); EOSINOPHILS PERCENT AUTO 0.5 % (0.0-5.4); IMMATURE GRAN ABSOLUTE AUTO 0.04 K/uL (0.00-0.23); IMMATURE GRAN PERCENT AUTO 0.4 % (0.0-0.7); LYMPHOCYTES ABSOLUTE AUTO 1.35 K/uL (0.8-3.3); LYMPHOCYTES PERCENT AUTO 12.6 % (11.4-47.7); MONOCYTES ABSOLUTE AUTO 0.72 K/uL (0.20-0.90); MONOCYTES PERCENT AUTO 6.7 % (3.3-12.6); NEUTROPHILS ABSOLUTE AUTO 8.51 K/uL (1.0-7.6); NEUTROPHILS PERCENT AUTO 79.4 % (40.0-78.1); PLATELET COUNT,PLT 264 K/uL (130-375); RED BLOOD CELL COUNT 3.95 M/uL (4.14-5.76); WHITE BLOOD CELL COUNT,WBC 10.7 K/uL (3.2-11.0)
[2025-02-23 21:38] LABS: INR 3.0
[2025-02-23 21:42] VITALS: PULSE 82
[2025-02-23 21:43] LABS: BLOOD UREA NITROGEN,BUN 19.0 mg/dL (7-18); CARBON DIOXIDE,CO2 25.0 mmol/L (21-32); CHLORIDE,CL 105.0 mmol/L (100-108); CREATININE 1.5 mg/dL (0.8-1.3); EST CRCL DRUG DOSING (CG) 51.59 mL/min; ESTIMATED GFR 51.0 mL/min (>60); GLUCOSE RANDOM 159.0 mg/dL (74-106); POTASSIUM,K 4.2 mmol/L (3.6-5.2); SODIUM,NA 140.0 mmol/L (140-148)
== END 2025-02-23 23:30 | disposition home or self-care (01) ==
LOC: JP.ED 19:05
DX: R60.0 Localized edema (principal); I48.91 Unspecified atrial fibrillation; I25.10 Atherosclerotic heart disease of native coronary artery without angina pectoris; I11.0 Hypertensive heart disease with heart failure; I50.9 Heart failure, unspecified; E78.00 Pure hypercholesterolemia, unspecified; J44.9 Chronic obstructive pulmonary disease, unspecified; E11.40 Type 2 diabetes mellitus with diabetic neuropathy, unspecified; Z88.5 Allergy status to narcotic agent; Z91.048 Other nonmedicinal substance allergy status; Z79.899 Other long term (current) drug therapy; Z88.8 Allergy status to other drugs, medicaments and biological substances; Z79.4 Long term (current) use of insulin; Z79.84 Long term (current) use of oral hypoglycemic drugs; Z79.01 Long term (current) use of anticoagulants; Z90.49 Acquired absence of other specified parts of digestive tract
CPT/HCPCS: 36415; 80048; 85025; 85610; 93971; 99284; A9270

== ENCOUNTER 2025-03-04 16:36 | Emergency (ER) | payer MEDICARE, MEDICAID ==
[2025-03-04 17:09] LABS: BASOPHILS ABSOLUTE AUTO 0.05 K/uL (0.00-0.10); BASOPHILS PERCENT AUTO 0.6 % (0.1-1.3); EOSINOPHILS PERCENT AUTO 0.2 % (0.0-5.4); IMMATURE GRAN ABSOLUTE AUTO 0.03 K/uL (0.00-0.23); IMMATURE GRAN PERCENT AUTO 0.3 % (0.0-0.7); LYMPHOCYTES ABSOLUTE AUTO 1.10 K/uL (0.8-3.3); LYMPHOCYTES PERCENT AUTO 12.4 % (11.4-47.7); MONOCYTES ABSOLUTE AUTO 0.44 K/uL (0.20-0.90); MONOCYTES PERCENT AUTO 5.0 % (3.3-12.6); NEUTROPHILS ABSOLUTE AUTO 7.23 K/uL (1.0-7.6); NEUTROPHILS PERCENT AUTO 81.5 % (40.0-78.1); PLATELET COUNT,PLT 397 K/uL (130-375); RED BLOOD CELL COUNT 3.99 M/uL (4.14-5.76); WHITE BLOOD CELL COUNT,WBC 8.9 K/uL (3.2-11.0)
[2025-03-04 17:14] LABS: EOSINOPHILS ABSOLUTE AUTO 0.02 K/uL (0.00-0.40)
[2025-03-04 17:30] LABS: A/G RATIO 0.6 (1.2-2.2); ALANINE AMINOTRANSFERASE,ALT 15 U/L (12-78); ASPARTATE AMNIOTRANSFERASE,AST 17 U/L (15-37); BILIRUBIN TOTAL 0.6 mg/dL (0.2-1.0); BLOOD UREA NITROGEN,BUN 19 mg/dL (7-18); CARBON DIOXIDE,CO2 27 mmol/L (21-32); CHLORIDE,CL 101 mmol/L (100-108); CREATININE 1.7 mg/dL (0.8-1.3); ESTIMATED GFR 44 mL/min (>60); GLUCOSE RANDOM 273 mg/dL (74-106); POTASSIUM,K 4.5 mmol/L (3.6-5.2); PROTEIN TOTAL,TP 7.3 g/dL (6.4-8.2); SODIUM,NA 134 mmol/L (140-148)
[2025-03-04 18:18] LABS: APPEARANCE,URINE CLEAR (CLEAR); GLUCOSE,URINE 500 mg/dL (NEGATIVE); OCCULT BLOOD,URINE TRACE-LYSED (NEGATIVE)
[2025-03-04 18:28] VITALS: BP 109/73; PULSE 73
[2025-03-04 18:28] LABS: SQUAMOUS EPITHELIAL CELLS,UR RARE /HPF; UROTHELIAL CELLS,URINE NOT SEEN /HPF
== END 2025-03-04 19:29 | disposition home or self-care (01) ==
LOC: JP.ED 16:36
DX: H53.9 Unspecified visual disturbance (principal); R51.9 Headache, unspecified; I11.0 Hypertensive heart disease with heart failure; I50.9 Heart failure, unspecified; I25.10 Atherosclerotic heart disease of native coronary artery without angina pectoris; J45.909 Unspecified asthma, uncomplicated; E11.9 Type 2 diabetes mellitus without complications; Z88.8 Allergy status to other drugs, medicaments and biological substances; Z88.5 Allergy status to narcotic agent; Z79.4 Long term (current) use of insulin; Z79.899 Other long term (current) drug therapy; Z79.84 Long term (current) use of oral hypoglycemic drugs
CPT/HCPCS: 36415; 70450; 80053; 81001; 85025; 99284